=== PATIENT | female | born 1950 | race Caucasian/White ===

== ENCOUNTER → 2017-01-19 | Outpatient (CLI) | payer MEDICARE ==
--- NOTE | 2017-01-20 11:08 | MM ---
Reason for exam: screening (asymptomatic). Last mammogram was performed 2 years and 4 months ago. History: Patient is postmenopausal. Family history of breast cancer in sister and breast cancer in mother at age 76. 2 benign excisional biopsies of the right breast. Took hormonal contraceptives for 5 years. Took estrogen for 12 years 8 months beginning at age 49. Physical Findings: A clinical breast exam by your physician is recommended on an annual basis and results should be correlated with mammographic findings. MG 3D Screening Mammo W/Cad Bilateral CC and MLO view(s) were taken. Prior study comparison: September 15, 2014, bilateral MG screening mammo w CAD. September 07, 2013, bilateral digital screening mammo w/CAD. The breast tissue is heterogeneously dense. This may lower the sensitivity of mammography. Benign calcifications. Focal asymmetry upper outer left breast. This finding is changed when compared with previous exams. ASSESSMENT: Incomplete: need additional imaging evaluation, BI-RAD 0 RECOMMENDATION: Special view mammogram of the left breast. [facility] will attempt to contact patient to return for supplemental views.
== END | disposition home or self-care (01) ==
LOC: RADMAMWWP 13:17
PROVIDERS: ATTEND Family Medicine
DX: Z12.31 Encounter for screening mammogram for malignant neoplasm of breast (principal); R92.2 Inconclusive mammogram
CPT/HCPCS: 77063; G0202

== ENCOUNTER → 2017-01-21 | Outpatient (CLI) | payer MEDICARE ==
--- NOTE | 2017-01-21 11:49 | MM ---
Reason for exam: additional evaluation requested from abnormal screening. Last mammogram was performed less than 1 month ago. History: Patient is postmenopausal. Family history of breast cancer in sister and breast cancer in mother at age 76. 2 benign excisional biopsies of the right breast. Took hormonal contraceptives for 5 years. Took estrogen for 12 years 8 months beginning at age 49. Physical Findings: Nurse did not find any significant physical abnormalities on exam. MG 3D Work Up W/Cad LT LM and spot compression MLO view(s) were taken of the left breast. Prior study comparison: January 19, 2017, bilateral MG 3d screening mammo w/cad. The breast tissue is heterogeneously dense. This may lower the sensitivity of mammography. There is no discrete abnormality on compression. These results were verbally communicated with the patient and result sheet given to the patient on 01/21/17. ASSESSMENT: Probably benign, BI-RAD 3 RECOMMENDATION: Follow-up diagnostic mammogram of the left breast in 6 months.
== END | disposition home or self-care (01) ==
LOC: RADMAMWWP 10:21
PROVIDERS: ATTEND Family Medicine
DX: R92.8 Other abnormal and inconclusive findings on diagnostic imaging of breast (principal)
CPT/HCPCS: G0206; G0279

== ENCOUNTER → 2017-06-04 | Outpatient (CLI) | payer MEDICARE ==
--- NOTE | 2017-06-04 08:53 | US ---
EXAMINATION TYPE: US abdomen complete DATE OF EXAM: 06/04/2017 COMPARISON: 02/08/2016 CLINICAL HISTORY: R10.13 Epigastric Pain. Pt states epigastric pain, GB removed 10 yrs ago EXAM MEASUREMENTS: Liver Length: 12.6 cm CBD: 0.5 cm Spleen: 9.1 cm Right Kidney: 10.8 x 4.8 x 4.4 cm Left Kidney: 9.4 x 5.4 x 4.6 cm Pancreas: Obscured by bowel gas Liver: wnl Gallbladder: Surgically absent Evidence for sonographic Eason's sign: No CBD: wnl Spleen: wnl Right Kidney: wnl Left Kidney: Small in size, cortical thinning Upper IVC: wnl Abd Aorta: Obscured by overlying bowel gas The liver is homogenous. The intrahepatic portion of the IVC and proximal abdominal aorta are within normal limits. Common bile duct is unremarkable. The visualized portions of the pancreas are homog enous. The spleen is unremarkable. The left kidney is diminutive in size. No hydronephrosis nephroli thiasis or renal mass. IMPRESSION: 1. Cholecystectomy changes. 2. Diminutive left kidney.
== END ==
LOC: RADUSWWP 07:28
PROVIDERS: ATTEND Family Medicine
DX: R10.13 Epigastric pain (principal); Z90.49 Acquired absence of other specified parts of digestive tract
CPT/HCPCS: 76700

== ENCOUNTER → 2017-07-03 | Outpatient (CLI) | payer MEDICARE ==
[2017-07-03 13:44] LABS: Basophils # (A) 0.1 k/uL (0-0.2); Basophils % (A) 0 %; CH 30.3; CHCM 32.3; Eosinophils # (A) 0.4 k/uL (0-0.7); Eosinophils % (A) 3 %; HCT 41.7 % (34.0-46.0); HDW 2.66; HGB 13.6 gm/dL (11.4-16.0); Luc # (Auto) 0.33; Luc % (Auto) 3; Lymphocytes # (A) 2.8 k/uL (1.0-4.8); Lymphocytes % (A) 26 %; MCH 30.6 pg (25.0-35.0); MCHC 32.5 g/dL (31.0-37.0); MCV 94.2 fL (80.0-100.0); Mean Platelet Volume 6.9; Monocytes # (A) 0.5 k/uL (0-1.0); Monocytes % (A) 5 %; Neutrophils # (A) 6.8 k/uL (1.3-7.7); Neutrophils % (A) 63 %; RBC 4.43 m/uL (3.80-5.40); RDW 13.1 % (11.5-15.5); WBC 10.8 k/uL (3.8-10.6); WBC (Perox) 11.49
[2017-07-03 13:57] LABS: Anion Gap 12 mmol/L; Blood Urea Nitrogen 23 mg/dL (7-17); Carbon Dioxide 25 mmol/L (22-30); Chloride 103 mmol/L (98-107); Glucose 111 mg/dL (74-99); Non-African American GFR(MDRD) >60 (>60 ml/min/1.73 sqM); Potassium 4.7 mmol/L (3.5-5.1); Sodium 140 mmol/L (137-145)
== END | disposition home or self-care (01) ==
LOC: LABWHC1 13:05
PROVIDERS: ATTEND Nurse Practitioner Family
DX: D50.9 Iron deficiency anemia, unspecified (principal); N17.9 Acute kidney failure, unspecified
CPT/HCPCS: 36415; 80048; 85025

== ENCOUNTER 2017-07-13 13:55 | Emergency (ER) | payer MEDICARE ==
[2017-07-13] MEDS ORDERED: ASPIRIN 81 MG PO STA (14:22)
[2017-07-13] MEDS ORDERED: NITROGLYCERIN SL TABS 0.4 MG TAB SUBLINGUAL STA (14:23)
--- NOTE | 2017-07-13 14:33 | ED ---
General Adult HPI - General Chief complaint: Chest Pain Stated complaint: sent By PCP Abnormal EKG Time Seen by Provider: 07/13/17 14:10 Source: patient, RN notes reviewed, old records reviewed Mode of arrival: wheelchair Limitations: no limitations - History of Present Illness Initial comments: 67-year-old female presents from outpatient clinic with a one-month history of intermittent nausea and central chest tightness. Chest tightness is mild. Patient does report intermittent right upper extremity pain, that she is sharp in nature. Patient denies significant chest tightness at the time my evaluation. She does have nausea. No vomiting. Denies diaphoresis with these episodes. Patient does admit to worsening dyspnea with exertion over the past 6 -7 weeks. She has been sleeping with 2 pillows instead of 1. No known history of heart failure. Denies lower extremity swelling or calf tenderness. Patient states she had a heart catheterization approximately 5 years ago. This was normal according to the patient. She is a nonsmoker. Patient has had workup with general surgery for this pain and nausea including EGD. - Related Data Home Medications Medication Instructions Recorded Confirmed Atenolol [Tenormin] 25 mg PO DAILY 02/25/14 07/13/17 Gabapentin [Neurontin] 300 mg PO TID 02/25/14 07/13/17 Levothyroxine Sodium [Synthroid] 75 mcg PO QAM 02/25/14 07/13/17 Rosuvastatin Calcium [Crestor] 40 mg PO HS 05/17/15 07/13/17 traMADol HCL [Ultram] 50 mg PO Q8H PRN 05/19/16 07/13/17 ALPRAZolam [Xanax] 0.25 mg PO Q8HR PRN 07/13/17 07/13/17 DULoxetine HCL [Cymbalta] 30 mg PO HS 07/13/17 07/13/17 Multivitamins, Thera [Multivitamin 1 tab PO DAILY 07/13/17 07/13/17 (formulary)] Omeprazole [PriLOSEC] 20 mg PO AC-BRKFST 07/13/17 07/13/17 Ondansetron HCl [Zofran] 8 mg PO Q8H PRN 07/13/17 07/13/17 amLODIPine [Norvasc] 5 mg PO DAILY 07/13/17 07/13/17 valACYclovir HCL [Valtrex] 1,000 mg PO TID PRN 07/13/17 07/13/17 Previous Rx's Medication Instructions Recorded Ondansetron Odt [Zofran Odt] 4 mg PO Q8HR PRN #10 tab 07/13/17 Allergies Allergy/AdvReac Type Severity Reaction Status Date / Time adhesive Allergy Rash/Hives Verified 07/13/17 14:22 latex Allergy Rash/Hives Verified 07/13/17 14:22 pentazocine lactate Allergy Confusion Verified 07/13/17 14:22 [From Talwin] potassium chloride Allergy Rash/Hives Verified 07/13/17 14:22 DURA PREP Allergy Rapid Uncoded 07/13/17 13:59 Heart Rate Review of Systems ROS Statement: Those systems with pertinent positive or pertinent negative responses have been documented in the HPI. ROS Other: All systems not noted in ROS Statement are negative. Past Medical History Past Medical History: Fibromyalgia, GERD/Reflux, Hyperlipidemia, Osteoarthritis (OA), Sleep Apnea/CPAP/BIPAP, Thyroid Disorder Additional Past Medical History / Comment(s): Spinal stenosis with spondylosis and scoliosis, irritable bowel syndrome. History of Any Multi-Drug Resistant Organisms: None Reported Past Surgical History: Back Surgery, Breast Surgery, Section, Cholecystectomy, Hysterectomy, Joint Replacement, Orthopedic Surgery Additional Past Surgical History / Comment(s): RIGHT TOTAL KNEE , 815 lumbar laminectomy decompression fusion l4-5, tummy tuck, Past Anesthesia/Blood Transfusion Reactions: Motion Sickness Additional Past Anesthesia/Blood Transfusion Reaction / Comment(s): Has problems with the hiccups after surgery. Past Psychological History: No Psychological Hx Reported Smoking Status: Never smoker Past Alcohol Use History: Occasional Past Drug Use History: None Reported - Past Family History Mother Family Medical History: Cancer, Hypertension Additional Family Medical History / Comment(s): Breast Cancer. Sister(s) Family Medical History: Cancer Additional Family Medical History / Comment(s): Breast Father Family Medical History: Coronary Artery Disease (CAD) Brother(s) Family Medical History: No Reported History Son(s) Family Medical History: No Reported History General Exam Limitations: no limitations General appearance: alert, in no apparent distress Head exam: Present: atraumatic, normocephalic Eye exam: Present: normal appearance, PERRL ENT exam: Present: normal exam Neck exam: Present: normal inspection. Absent: tenderness, meningismus Respiratory exam: Present: normal lung sounds bilaterally. Absent: respiratory distress, wheezes Cardiovascular Exam: Present: regular rate, normal rhythm GI/Abdominal exam: Present: soft. Absent: distended, tenderness, guarding Extremities exam: Present: normal inspection, normal capillary refill. Absent: pedal edema Neurological exam: Present: alert, oriented X3, CN II-XII intact. Absent: motor sensory deficit Psychiatric exam: Present: normal affect, normal mood Skin exam: Present: warm, dry, intact. Absent: cyanosis, diaphoretic Course Vital Signs 07/13/17 07/13/17 07/13/17 13:57 14:35 15:17 Temperature 98.2 F Pulse Rate 78 70 61 Respiratory 18 17 17 Rate Blood Pressure 191/80 129/73 170/86 O2 Sat by Pulse 97 99 99 Oximetry - Reevaluation(s) Reevaluation #1: 07/13/17 14:38 Ultrasound obtained in May of this year showed no acute findings, gallbladder surgically removed. Reevaluation #2: 07/13/17 15:04 EKG is discussed with Dr. Fox, although machine interprets as ST segment elevation, this is likely early repolarization, no acute STEMI. EKG Findings - EKG Comments: EKG Findings:: EKG shows normal sinus rhythm, there is left ventricular hypertrophy, ventricular rate 67, AK interval 144, QRS duration 84, QTC 412, no ST segment elevation, no reciprocal ST segment depression, no signs of acute ischemia Medical Decision Making - Medical Decision Making 67-year-old female presenting with 5 weeks of nausea and intermittent chest tightness. Patient states she had a heart cath approximately 5 years ago which was normal. She denies diaphoresis the symptoms. Chest pain is not worse with exertion. EKG shows normal sinus rhythm with left ventricular hypertrophy. Outpatient EKG was similar, this was interpreted as ST segment elevation by the EKG machine, both EKGs were shown to cardiology, felt this is likely early repolarization. Chest x-ray shows no pulmonary edema, no focal pneumonia. Laboratory studies reveal a popsicle, stable hemoglobin. Troponin is negative. BNP is negative. Creatinine 1.2, patient does have history of CKD which has been improving. Patient is offered observation, she declines. Case is discussed with her primary care physician and will see the patient back several days. The patient and primary care physician are agreeable with discharge at this time. Diagnosis: Chest pain - Lab Data Result diagrams: 07/13/17 14:30 07/13/17 14:30 Lab Results 07/13/17 07/13/17 07/13/17 Range/Units 14:30 14:30 14:30 WBC 7.8 (3.8-10.6) k/uL RBC 4.40 (3.80-5.40) m/uL Hgb 13.3 (11.4-16.0) gm/dL Hct 41.0 (34.0-46.0) % MCV 93.3 (80.0-100.0) fL MCH 30.3 (25.0-35.0) pg MCHC 32.5 (31.0-37.0) g/dL RDW 12.9 (11.5-15.5) % Plt Count 468 H (150-450) k/uL Neutrophils % 59 % Lymphocytes % 26 % Monocytes % 5 % Eosinophils % 5 % Basophils % 1 % Neutrophils # 4.6 (1.3-7.7) k/uL Lymphocytes # 2.1 (1.0-4.8) k/uL Monocytes # 0.4 (0-1.0) k/uL Eosinophils # 0.4 (0-0.7) k/uL Basophils # 0.1 (0-0.2) k/uL PT (9.0-12.0) sec INR (<1.2) APTT (22.0-30.0) sec Sodium 138 (137-145) mmol/L Potassium 4.7 (3.5-5.1) mmol/L Chloride 99 (98-107) mmol/L Carbon Dioxide 28 (22-30) mmol/L Anion Gap 11 mmol/L BUN 20 H (7-17) mg/dL Creatinine 1.20 H (0.52-1.04) mg/dL Est GFR (MDRD) Af Amer 54 (>60 ml/min/1.73 sqM) Est GFR (MDRD) Non-Af 45 (>60 ml/min/1.73 sqM) Glucose 94 (74-99) mg/dL Calcium 9.9 (8.4-10.2) mg/dL Magnesium 1.7 (1.6-2.3) mg/dL Total Bilirubin 0.5 (0.2-1.3) mg/dL AST 38 H (14-36) U/L ALT 43 (9-52) U/L Alkaline Phosphatase 92 (38-126) U/L Total Creatine Kinase 58 (30-135) U/L CK-MB (CK-2) 0.5 (0.0-2.4) ng/mL CK-MB (CK-2) Rel Index 0.9 Troponin I <0.012 (0.000-0.034) ng/mL NT-Pro-B Natriuret Pep pg/mL Total Protein 7.2 (6.3-8.2) g/dL Albumin 4.5 (3.5-5.0) g/dL Lipase 37 (23-300) U/L 07/13/17 07/13/17 Range/Units 14:30 14:30 WBC (3.8-10.6) k/uL RBC (3.80-5.40) m/uL Hgb (11.4-16.0) gm/dL Hct (34.0-46.0) % MCV (80.0-100.0) fL MCH (25.0-35.0) pg MCHC (31.0-37.0) g/dL RDW (11.5-15.5) % Plt Count (150-450) k/uL Neutrophils % % Lymphocytes % % Monocytes % % Eosinophils % % Basophils % % Neutrophils # (1.3-7.7) k/uL Lymphocytes # (1.0-4.8) k/uL Monocytes # (0-1.0) k/uL Eosinophils # (0-0.7) k/uL Basophils # (0-0.2) k/uL PT 11.4 (9.0-12.0) sec INR 1.1 (<1.2) APTT 23.3 (22.0-30.0) sec Sodium (137-145) mmol/L Potassium (3.5-5.1) mmol/L Chloride (98-107) mmol/L Carbon Dioxide (22-30) mmol/L Anion Gap mmol/L BUN (7-17) mg/dL Creatinine (0.52-1.04) mg/dL Est GFR (MDRD) Af Amer (>60 ml/min/1.73 sqM) Est GFR (MDRD) Non-Af (>60 ml/min/1.73 sqM) Glucose (74-99) mg/dL Calcium (8.4-10.2) mg/dL Magnesium (1.6-2.3) mg/dL Total Bilirubin (0.2-1.3) mg/dL AST (14-36) U/L ALT (9-52) U/L Alkaline Phosphatase (38-126) U/L Total Creatine Kinase (30-135) U/L CK-MB (CK-2) (0.0-2.4) ng/mL CK-MB (CK-2) Rel Index Troponin I (0.000-0.034) ng/mL NT-Pro-B Natriuret Pep 222 pg/mL Total Protein (6.3-8.2) g/dL Albumin (3.5-5.0) g/dL Lipase (23-300) U/L Disposition Clinical Impression: Chest pain Disposition: HOME SELF-CARE Condition: Good Instructions: Chest Pain (ED) Prescriptions: Ondansetron Odt [Zofran Odt] 4 mg PO Q8HR PRN #10 tab PRN Reason: Vomiting Referrals: Carlos Cary MD [Primary Care Provider] - 1-2 days Time of Disposition: 16:30
[2017-07-13 14:38] VITALS: RESP 17
--- NOTE | 2017-07-13 14:50 | XR ---
EXAMINATION TYPE: XR chest 2V DATE OF EXAM: 07/13/2017 COMPARISON: 12/03/2009 HISTORY: Intermittent chest pain and tightness TECHNIQUE: Frontal and lateral views of the chest are obtained. FINDINGS: There is no focal air space opacity, pleural effusion, or pneumothorax seen. The cardiac silhouette size is upper limits of normal in size. The osseous structures are intact. There is part ial visualization of a S-shaped scoliotic curvature of the thoracolumbar spine. Mild degenerative nimco nges of the thoracic spine are noted. Cholecystectomy clips are noted within the right upper quadrant . IMPRESSION: No acute cardiopulmonary process.
[2017-07-13 14:58] LABS: INR 1.1 (<1.2); Partial Thromboplastin Time 23.3 sec (22.0-30.0); Prothrombin Time 11.4 sec (9.0-12.0)
[2017-07-13 15:06] LABS: Calcium 9.9 mg/dL (8.4-10.2); Magnesium 1.7 mg/dL (1.6-2.3); Potassium 4.7 mmol/L (3.5-5.1); Total Bilirubin 0.5 mg/dL (0.2-1.3); Total Protein 7.2 g/dL (6.3-8.2)
[2017-07-13 15:10] LABS: Creatine Kinase 58 U/L (30-135)
[2017-07-13 15:22] LABS: Creatine Kinase MB 0.5 ng/mL (0.0-2.4); Troponin I <0.012 ng/mL (0.000-0.034)
[2017-07-13 15:24] LABS: Basophils # (A) 0.1 k/uL (0-0.2); Basophils % (A) 1 %; CH 30.3; CHCM 32.7; Eosinophils # (A) 0.4 k/uL (0-0.7); Eosinophils % (A) 5 %; HDW 2.71; HGB 13.3 gm/dL (11.4-16.0); Luc # (Auto) 0.32; Luc % (Auto) 4; Lymphocytes # (A) 2.1 k/uL (1.0-4.8); Lymphocytes % (A) 26 %; MCH 30.3 pg (25.0-35.0); MCHC 32.5 g/dL (31.0-37.0); MCV 93.3 fL (80.0-100.0); Mean Platelet Volume 6.7; Monocytes # (A) 0.4 k/uL (0-1.0); Monocytes % (A) 5 %; Neutrophils # (A) 4.6 k/uL (1.3-7.7); Neutrophils % (A) 59 %; RDW 12.9 % (11.5-15.5); WBC 7.8 k/uL (3.8-10.6); WBC (Perox) 7.65
[2017-07-13 17:06] VITALS: BP 134/76; PULSE 67; TEMP 97.5
== END 2017-07-13 17:06 | disposition home or self-care (01) ==
LOC: EC 13:55
DX: R07.9 Chest pain, unspecified (principal); M79.7 Fibromyalgia; K21.9 Gastro-esophageal reflux disease without esophagitis; E78.5 Hyperlipidemia, unspecified; E07.9 Disorder of thyroid, unspecified; Z82.49 Family history of ischemic heart disease and other diseases of the circulatory system; Z88.8 Allergy status to other drugs, medicaments and biological substances; Z91.040 Latex allergy status; Z91.048 Other nonmedicinal substance allergy status; Z79.899 Other long term (current) drug therapy
CPT/HCPCS: 36415; 71020; 80053; 82550; 82553; 83690; 83735; 83880; 84484; 85025; 85610; 85730; 93005; 99285

== ENCOUNTER → 2017-10-28 | Outpatient (CLI) | payer MEDICARE ==
[2017-10-28 16:08] LABS: HCT 40.8 % (34.0-46.0); HGB 13.1 gm/dL (11.4-16.0); MCH 29.2 pg (25.0-35.0); MCHC 32.2 g/dL (31.0-37.0); MCV 90.8 fL (80.0-100.0); Mean Platelet Volume 6.9; Platelet Count 399 k/uL (150-450); WBC 9.4 k/uL (3.8-10.6)
[2017-10-28 16:27] LABS: Anion Gap 11 mmol/L; Blood Urea Nitrogen 23 mg/dL (7-17); Carbon Dioxide 32 mmol/L (22-30); Chloride 99 mmol/L (98-107); Potassium 4.9 mmol/L (3.5-5.1); Sodium 142 mmol/L (137-145)
== END | disposition home or self-care (01) ==
LOC: LABPAT 15:26
PROVIDERS: ATTEND Internal Medicine Interventional Cardiology
DX: Z01.812 Encounter for preprocedural laboratory examination (principal); R07.9 Chest pain, unspecified
CPT/HCPCS: 36415; 80051; 82565; 84520; 85027

== ENCOUNTER → 2017-11-05 | Day surgery (SDC) | payer MEDICARE ==
[2017-11-02 11:46] VITALS: BMI 34.9
[~2017-11-05] MED LIST: ACETAMINOPHEN TAB 325 MG TAB ONE; ALPRAZolam 0.25 MG TAB PO PRN; ALPRAZolam 0.5 MG TAB PO PRN; ASPIRIN 325 MG TAB PO STA; ASPIRIN 81 MG PO SCH; ATENOLOL 25 MG TAB PO SCH; DULoxetine HCL 30 MG CAPSULE.DR PO SCH; GABAPENTIN 400 MG CAP PO SCH; HEPARIN SODIUM 1,000 UN/ML (10ML VL) IV ONE; HEPARIN SODIUM 1,000 UN/ML (10ML VL) ONE; LEVOTHYROXINE 75 MCG TAB PO SCH; LIDOCAINE 2% INJ 20 MG/ML (20 ML MDV) ONE; LIDOCAINE 2% INJ 20 MG/ML SQ ONE; MAG HYDROX/AL HYDROX/SIMETH 30 ML CUP PO SCH; MULTIVITAMINS, THERA 1 EACH TAB PO SCH; NITROGLYCERIN SL TABS 0.4 MG TAB SUBLINGUAL PRN; NON-FORMULARY DRUG (Omeprazole 20 MG) PO SCH; NON-FORMULARY DRUG (Rosuvastatin Calcium [Crestor] 40 MG) PO SCH; RX INFO: IV CONTRAST WAS GIVEN 1 EACH MISC MISCELLANE PRN; SODIUM CHLORIDE 0.9% 1,000 ML IV SCH; SODIUM CHLORIDE 0.9% 1,000 ML in EMPTY BAG 1 BAG IV ONE; VERAPAMIL 2.5 MG/ML 2 ML AMP ONE; VERAPAMIL SYRINGE (5 MG/10 ML) INTRAARTER ONE; amLODIPine 5 MG TAB PO SCH; fentaNYL (PF) 50 MCG/ML 2 ML AMP IV ONE; fentaNYL (PF) 50 MCG/ML 2 ML AMP ONE; traMADol 50 MG TAB PO PRN; valACYclovir HCL 1,000 MG TABLET PO PRN
[2017-11-05 08:44] VITALS: RESP 16; TEMP 98.2
--- NOTE | 2017-11-05 11:45 | CC ---
CARDIAC CATHETERIZATION REPORT Ms. Melchor is a 67-year-old female with known history of hypertension, hyperlipidemia, who has been complaining of chest discomfort and dyspnea on exertion, underwent a myocardial perfusion imaging that revealed anteroapical anterolateral wall inducible ischemia. In view of that, recommendation made regarding cardiac catheterization. The procedures, risks and complications were discussed with the patient who is in full understanding and agreement. PROCEDURE: Patient was brought to the [facility] in a fasting semi-sedated state after receiving fentanyl and Benadryl and achieving moderate conscious sedated state. Using Xylocaine anesthesia and the Seldinger technique, a 6-Chilean sheath was introduced in the right radial artery. Attempt to advance a wire in the ascending aorta was unsuccessful because of tortuosity. At that time using Xylocaine anesthesia and Seldinger technique, a 6-Chilean sheath was introduced in the right femoral artery. Selective right and left angiography performed using 6-Chilean 4 bend right and left Dona catheter. Multiple views of the coronary artery including davion-axial views were obtained. From that, a 6-Chilean tight pigtail catheter was introduced into the left ventricle and a 30 degree AGGARWAL view of the left ventricle was obtained. Following that, the catheter and sheaths were removed. Hemostasis was obtained with deployment of an Angio-Seal in the right femoral artery and a TR band in the right radial artery. There was no immediate complication. The patient received 1000 units of intravenous heparin as well as intra-arterial verapamil. FINDINGS: 1. LEFT MAIN: This is a short size vessel bifurcating into the left circumflex, left anterior descending artery, left main coronary artery has no evidence of high-grade stenosis. 2. LEFT ANTERIOR DESCENDING ARTERY: This is a large-sized vessel reaching toward the apex which tapers down in the distal third, giving rise to a large diagonal branch. The left anterior descending artery as well as branches have no evidence of obstructive coronary artery disease. 3. LEFT CIRCUMFLEX: This is a nondominant vessel giving rise to a moderately sized diagonal branch proximally that has no evidence of high-grade stenosis. 4. RIGHT CORONARY ARTERY: This is a large dominant vessel, bifurcating distally into PDA and posterolateral segment and branches. The right coronary artery and its branches have no evidence of obstructive coronary artery disease. 5. LEFT VENTRICULOGRAM: Left ventriculogram was performed in 30 degree AGGARWAL view and revealed normal left ventricular size and systolic function. Ejection fraction is 60%. There was no mitral regurgitation. 6. AORTOGRAM: The aortogram was performed in the ALIVIA view and revealed a normal appearance of the ascending aorta. 7. HEMODYNAMICS: There was no gradient across the aortic valve. The left ventricle end-diastolic pressure was 12 to 16 mmHg. CONCLUSION: 1. Normal coronary arteries. 2. No left ventricular size and systolic function. 3. Normal appearance of the ascending aorta. RECOMMENDATION: In view of finding anatomy, I have recommended continue medical therapy with aggressive risk factor modifications being initiated. Those findings and recommendations were discussed with the patient and her family who are in full understanding and agreement. Duration of the procedure 30 minutes. RENETTA / YADIRAN: [id number] /
--- NOTE | 2017-11-05 11:51 | LTR ---
DATE OF SERVICE: November 05, 2017 RE: Eder Melchoron Dear Dr. Cary; I had the pleasure to perform cardiac catheterization on Ms. Melchor at [facility] on November 05, 2017 and a full copy of the procedure note will be forwarded to you. In brief, she was found to have normal coronary arteries with normal left ventricular size and systolic function. Based on those findings, I have recommended to continue medical therapy with aggressive risk factor modifications being initiated. Thank you again for allowing me to participate in this patient's care. Please feel free to call for any questions. Sincerely yours, MD RENETTA Farooq / YADIRAN: [id number] /
[2017-11-05 17:36] VITALS: BP 134/76; PULSE 64
== END | disposition home or self-care (01) ==
LOC: CATHCVL 07:58
PROVIDERS: ATTEND Internal Medicine Interventional Cardiology
DX: I77.1 Stricture of artery (principal); R94.39 Abnormal result of other cardiovascular function study; R07.89 Other chest pain; I10 Essential (primary) hypertension; Z79.82 Long term (current) use of aspirin; Z79.899 Other long term (current) drug therapy; Z88.5 Allergy status to narcotic agent; E78.2 Mixed hyperlipidemia
CPT/HCPCS: 93458; 93567; C1760; C1894 ×2; C1769 ×2; J2001; J3010; J1644; 93005

== ENCOUNTER → 2018-01-04 | Outpatient (CLI) | payer MEDICARE ==
--- NOTE | 2018-01-04 13:23 | BD ---
EXAMINATION TYPE: MG DEXA axial skeleton. DATE OF EXAM: 01/04/2018 COMPARISON: NONE CLINICAL HISTORY: Z78.0 Post menopausal without HRT Height: 61 Weight: 184.2 FRAX RISK QUESTIONS: Alcohol (3 or more units per day): no Family History (Parent hip fracture): no Glucocorticoids (More than 3mos): no (Ex: prednisone, prednisolone, methylprednisolone, dexamethasone, and hydrocortisone). History of Fracture in Adulthood: no Secondary Osteoporosis: 1. Type 1 Diabetes: no 2. Hyperthyroidism: no 3. Menopause before 45: yes 4. Malnutrition: no 5. Chronic liver disease: no Rheumatoid Arthritis: no Current Tobacco Use: no RISK FACTORS HISTORY OF: Surgery to Spine/Hip(right/left)/Wrist (right/left): yes/ lumbar 4,5. lumbar fusion with rods When: 2014 Family History of Osteoporosis: yes Active: yes Diet low in dairy products/other sources of calcium: yes Postmenopausal woman: partial hysterectomy at age 29 Lost more than 2 inches in height since high school: just 2 inches Frequent falls: no MEDICATIONS: cymbalta, tramadol, atenolol, rosuvastatin, duloxetine, magnesium, vitamins, Thyroid Medications: synthroid How Lon years Additional History: EXAM MEASUREMENTS: Bone mineral densitometry was performed using the [employer] System. Bone mineral density about the R hip (g/cm2): 1.029 Bone mineral density about the L hip (g/cm2): 0.984 T Score values are as follows: -----R Neck: -0.1 -----L Neck: -0.4 -----R Total: 0.1 -----L Total: -0.3 Bone mineral density has: decreased -8.7 % since study of: 08.25.2012 IMPRESSION: No evidence for osteoporosis or osteopenia. NOTE: T-SCORE=SD OF THE YOUNG ADULT MEAN.
== END | disposition home or self-care (01) ==
LOC: RADBDWWP 07:52
PROVIDERS: ATTEND Family Medicine
DX: Z78.0 Asymptomatic menopausal state (principal)
CPT/HCPCS: 77080

== ENCOUNTER → 2018-04-07 | Outpatient (CLI) | payer MEDICARE ==
[2018-04-07 12:17] LABS: Basophils # (A) 0.1 k/uL (0-0.2); Basophils % (A) 1 %; Eosinophils # (A) 0.4 k/uL (0-0.7); Eosinophils % (A) 6 %; HCT 38.5 % (34.0-46.0); HGB 12.6 gm/dL (11.4-16.0); Lymphocytes # (A) 1.8 k/uL (1.0-4.8); Lymphocytes % (A) 33 %; MCHC 32.8 g/dL (31.0-37.0); MCV 91.4 fL (80.0-100.0); Mean Platelet Volume 6.2; Monocytes # (A) 0.3 k/uL (0-1.0); Monocytes % (A) 6 %; Neutrophils # (A) 2.9 k/uL (1.3-7.7); Neutrophils % (A) 51 %; Platelet Count 398 k/uL (150-450); RBC 4.21 m/uL (3.80-5.40); RDW 12.9 % (11.5-15.5); WBC 5.6 k/uL (3.8-10.6)
[2018-04-07 14:25] LABS: Calcium 9.7 mg/dL (8.4-10.2); Potassium 5.1 mmol/L (3.5-5.1)
[2018-04-07 14:28] LABS: T4, Free (Free Thyroxine) 0.72 ng/dL (0.78-2.19)
== END | disposition home or self-care (01) ==
LOC: LABWHC1 11:47
PROVIDERS: ATTEND Family Medicine
DX: M79.652 Pain in left thigh (principal); R60.0 Localized edema
CPT/HCPCS: 36415; 80048; 84439; 84443; 85025

== ENCOUNTER → 2018-04-07 | Outpatient (CLI) | payer MEDICARE ==
--- NOTE | 2018-04-07 13:00 | US ---
EXAMINATION TYPE: US venous doppler duplex LE LT DATE OF EXAM: 04/07/2018 12:45 PM COMPARISON: NONE CLINICAL HISTORY: 68-year-old female R22.42 SWELLING OF LT LOWER LIMB. SIDE PERFORMED: Left TECHNIQUE: The lower extremity deep venous system is examined utilizing real time linear array sonog venessa with graded compression, doppler sonography and color-flow sonography. FINDINGS: VESSELS IMAGED: External Iliac Vein (EIV) Common Femoral Vein Deep Femoral Vein Greater Saphenous Vein * Femoral Vein Popliteal Vein Small Saphenous Vein * (* superficial vessels) Left Leg: Negative for DVT IMPRESSION: No evidence for DVT within the left lower extremity imaged from the groin to the knee.
== END | disposition home or self-care (01) ==
LOC: RADUSWWP 11:24
PROVIDERS: ATTEND Family Medicine
DX: R22.42 Localized swelling, mass and lump, left lower limb (principal); M79.662 Pain in left lower leg; Z88.8 Allergy status to other drugs, medicaments and biological substances

== ENCOUNTER 2018-06-24 17:52 | Emergency (ER) | payer MEDICARE ==
--- NOTE | 2018-06-24 18:23 | ED ---
Abdominal Pain HPI - General Source: patient, RN notes reviewed Mode of arrival: ambulatory Limitations: no limitations <Mindy Payne - Last Filed: 06/24/18 23:51> <Allie Jacob - Last Filed: 06/25/18 01:20> - General Chief Complaint: Abdominal Pain Stated Complaint: lt sided abd pain Time Seen by Provider: 06/24/18 18:10 - History of Present Illness Initial Comments: This is a 68-year-old female who presents to the emergency department with chief complaint of left lower quadrant abdominal pain. Patient reports a history of intermittent constipation for the past one month. She states that this she went two days without having a bowel movement and then had multiple bowel movements on Thursday. She states that on Thursday night she developed left lower quadrant abdominal pain that she describes as "nagging." She states the pain is made worse by laying on her left side and is made better by lying flat. She states that this pain has been constant. She also reports intermittent bloating and nausea. Denies vomiting or diarrhea. States that she continues to have normal bowel movements. Denies any fevers or chills. Denies chest pain or shortness of breath, dysuria or hematuria. She states the previous colonoscopies and barium enemas have been normal. (Mindy Payne) - Related Data Home Medications Medication Instructions Recorded Confirmed Atenolol [Tenormin] 25 mg PO DAILY 02/25/14 06/24/18 Rosuvastatin Calcium [Crestor] 40 mg PO HS 05/17/15 06/24/18 traMADol HCL [Ultram] 50 mg PO BID PRN 05/19/16 06/24/18 Multivitamins, Thera [Multivitamin 1 tab PO DAILY 07/13/17 06/24/18 (formulary)] Omeprazole [PriLOSEC] 20 mg PO DAILY 07/13/17 06/24/18 Aspirin 81 mg PO HS 11/02/17 06/24/18 Cholecalciferol [Vitamin D3] 1,000 unit PO DAILY 06/24/18 06/24/18 Lysine [l-Lysine] 500 mg PO DAILY 06/24/18 06/24/18 Magnesium 200 mg PO DAILY 06/24/18 06/24/18 Melatonin 5 mg PO HS PRN 06/24/18 06/24/18 Allergies Allergy/AdvReac Type Severity Reaction Status Date / Time adhesive Allergy Rash/Hives Verified 06/24/18 18:29 latex Allergy Rash/Hives Verified 06/24/18 18:29 pentazocine lactate Allergy Confusion Verified 06/24/18 18:29 [From [place]] potassium chloride Allergy Rash/Hives Verified 06/24/18 18:29 DURA PREP Allergy Rash/Hives Uncoded 06/24/18 17:55 Review of Systems ROS Other: All systems not noted in ROS Statement are negative. <Mindy Payne - Last Filed: 06/24/18 23:51> ROS Other: All systems not noted in ROS Statement are negative. <Allie Jacob - Last Filed: 06/25/18 01:20> ROS Statement: Those systems with pertinent positive or pertinent negative responses have been documented in the HPI. Past Medical History Past Medical History: Chest Pain / Angina, Fibromyalgia, GERD/Reflux, Hyperlipidemia, Hypertension, Osteoarthritis (OA), Thyroid Disorder Additional Past Medical History / Comment(s): Spinal stenosis with spondylosis and scoliosis, hx. of irritable bowel syndrome. History of Any Multi-Drug Resistant Organisms: None Reported Past Surgical History: Back Surgery, Breast Surgery, Section, Cholecystectomy, Hysterectomy, Joint Replacement, Orthopedic Surgery Additional Past Surgical History / Comment(s): RIGHT TOTAL KNEE , 05-24-15 lumbar laminectomy decompression fusion l4-5, tummy tuck, Past Anesthesia/Blood Transfusion Reactions: Motion Sickness Additional Past Anesthesia/Blood Transfusion Reaction / Comment(s): Has problems with the hiccups after surgery. Severe allergy to Dura Prep. Past Psychological History: No Psychological Hx Reported Smoking Status: Never smoker Past Alcohol Use History: Occasional Past Drug Use History: None Reported - Past Family History Mother Family Medical History: Cancer, Hypertension Additional Family Medical History / Comment(s): Breast Cancer. Sister(s) Family Medical History: Cancer Additional Family Medical History / Comment(s): Breast Father Family Medical History: Coronary Artery Disease (CAD) Brother(s) Family Medical History: No Reported History Son(s) Family Medical History: No Reported History <Mindy Payne - Last Filed: 06/24/18 23:51> General Exam Limitations: no limitations <Macon,Mindy M - Last Filed: 06/24/18 23:51> <Allie Jacob P - Last Filed: 06/25/18 01:20> - General Exam Comments Initial Comments: General: Awake and alert, well-developed; in no apparent distress. Does not appear acutely ill. is at bedside. HEENT: Head atraumatic, normocephalic. Pupils are equal, round and reactive to light. Extraocular movements intact. Oropharynx moist without erythema or exudate. Neck: Supple. Normal ROM. Cardiovascular: Regular rate and rhythm. No murmurs, rubs or gallops. Chest symmetrical. Respiratory: Lungs clear to auscultation bilaterally. No wheezes, rales or rhonchi. Normal respiratory effort with no use of accessory muscles. Abdomen: Soft, non-distended. Tenderness with voluntary guarding left lower quadrant. No rigidity or rebound. Normal bowel sounds in all 4 quadrants. Left CVA tenderness. Musculoskeletal: Normal ROM, no tenderness bilateral upper and lower extremities. Skin: [place], warm and dry without rashes or lesions. Neurological: Alert and oriented x3. CN II-XII grossly intact. Speech is fluent and answers are appropriate. No focal neuro deficits. Psychiatric: Normal mood and affect. No overt signs of depression or anxiety noted. (Mindy Payne) Vital Signs 06/24/18 06/24/18 17:54 21:45 Temperature 98.2 F 98.4 F Pulse Rate 76 73 Respiratory 20 18 Rate Blood Pressure 141/83 145/80 O2 Sat by Pulse 100 100 Oximetry Medical Decision Making - Lab Data Result diagrams: 06/24/18 18:50 06/24/18 18:50 - Radiology Data Radiology results: report reviewed <Mindy Payne - Last Filed: 06/24/18 23:51> - Lab Data Result diagrams: 06/24/18 18:50 06/24/18 18:50 <Allie Jacob P - Last Filed: 06/25/18 01:20> - Medical Decision Making This is a 68-year-old female who presents to the emergency department with chief complaint of left lower quadrant abdominal pain. Patient reports pain has been present since Thursday. There is tenderness with voluntary guarding to the left lower quadrant. She does not appear acutely ill. CBC, CMP and UA are unremarkable. Computed tomography scan of the abdomen and pelvis reveals no acute abnormalities. Patient is in no acute distress and vital signs have been stable. Case is discussed with attending physician, Dr. Jacob who also evaluated the patient. Patient will be discharged home at this time. She is in agreement and voices understanding. All questions answered. (Mindy Payne) I personally saw and examined the patient. I reviewed and agree with the mid- level provider findings including all diagnostic interpretations and treatment plans as written unless otherwise stated. I was present for steiner portions of any procedures performed. (Allie Jacob) - Lab Data Lab Results 06/24/18 06/24/18 06/24/18 Range/Units 18:50 18:50 18:50 WBC 7.1 (3.8-10.6) k/uL RBC 4.04 (3.80-5.40) m/uL Hgb 12.1 (11.4-16.0) gm/dL Hct 36.5 (34.0-46.0) % MCV 90.5 (80.0-100.0) fL MCH 29.9 (25.0-35.0) pg MCHC 33.0 (31.0-37.0) g/dL RDW 13.3 (11.5-15.5) % Plt Count 365 (150-450) k/uL Neutrophils % 48 % Lymphocytes % 38 % Monocytes % 6 % Eosinophils % 5 % Basophils % 1 % Neutrophils # 3.4 (1.3-7.7) k/uL Lymphocytes # 2.7 (1.0-4.8) k/uL Monocytes # 0.4 (0-1.0) k/uL Eosinophils # 0.4 (0-0.7) k/uL Basophils # 0.1 (0-0.2) k/uL Sodium 140 (137-145) mmol/L Potassium 4.3 (3.5-5.1) mmol/L Chloride 103 (98-107) mmol/L Carbon Dioxide 29 (22-30) mmol/L Anion Gap 8 mmol/L BUN 23 H (7-17) mg/dL Creatinine 0.89 (0.52-1.04) mg/dL Est GFR (CKD-EPI)AfAm 77 (>60 ml/min/1.73 sqM) Est GFR (CKD-EPI)NonAf 66 (>60 ml/min/1.73 sqM) Glucose 101 H (74-99) mg/dL Calcium 9.3 (8.4-10.2) mg/dL Total Bilirubin 0.3 (0.2-1.3) mg/dL AST 24 (14-36) U/L ALT 24 (9-52) U/L Alkaline Phosphatase 72 (38-126) U/L Total Protein 6.3 (6.3-8.2) g/dL Albumin 3.9 (3.5-5.0) g/dL Amylase 43 (30-110) U/L Lipase 31 (23-300) U/L Urine Color Yellow Urine Appearance Cloudy H (Clear) Urine pH 5.5 (5.0-8.0) Ur Specific [place] 1.023 (1.001-1.035) Urine Protein Negative (Negative) Urine Glucose (UA) Negative (Negative) Urine Ketones Negative (Negative) Urine Blood Negative (Negative) Urine Nitrite Negative (Negative) Urine Bilirubin Negative (Negative) Urine Urobilinogen <2.0 (<2.0) mg/dL Ur Leukocyte Esterase Negative (Negative) Urine RBC 1 (0-5) /hpf Urine WBC 2 (0-5) /hpf Ur Squamous Epith Cells 7 H (0-4) /hpf Urine Bacteria Rare H (None) /hpf Urine Mucus Occasional H (None) /hpf - Radiology Data CT abdomen and pelvis with contrast impression: Compared to last exam there is improved aeration of the right lung base. No sign of acute abdomen and pelvis. I do not see a cause for left-sided pain. (Mindy Payne) Disposition Is patient prescribed a controlled substance at d/c from ED?: No Time of Disposition: 21:33 <Mindy Payne - Last Filed: 06/24/18 23:51> <Allie Jacob - Last Filed: 06/25/18 01:20> Clinical Impression: Abdominal pain Disposition: HOME SELF-CARE Condition: Good Instructions: Abdominal Pain (ED) Additional Instructions: Please follow up with primary care provider within 1-2 days. Return to emergency department if symptoms should worsen or any concerns arise. Referrals: Carlos Cary MD [Primary Care Provider] - 1-2 days
[2018-06-24 19:33] LABS: Basophils # (A) 0.1 k/uL (0-0.2); Basophils % (A) 1 %; Eosinophils # (A) 0.4 k/uL (0-0.7); Eosinophils % (A) 5 %; HCT 36.5 % (34.0-46.0); HGB 12.1 gm/dL (11.4-16.0); Lymphocytes # (A) 2.7 k/uL (1.0-4.8); Lymphocytes % (A) 38 %; MCH 29.9 pg (25.0-35.0); MCV 90.5 fL (80.0-100.0); Mean Platelet Volume 6.6; Monocytes # (A) 0.4 k/uL (0-1.0); Monocytes % (A) 6 %; Neutrophils # (A) 3.4 k/uL (1.3-7.7); Neutrophils % (A) 48 %; Platelet Count 365 k/uL (150-450); RBC 4.04 m/uL (3.80-5.40); RDW 13.3 % (11.5-15.5); WBC 7.1 k/uL (3.8-10.6)
[2018-06-24 19:37] LABS: Appearance,Urine Cloudy (Clear); Bacteria,Urine Rare /hpf; Bilirubin,Urine Negative (Negative); Blood,Urine Negative (Negative); Color,Urine Yellow; Glucose,Urine (UA) Negative (Negative); Ketones,Urine Negative (Negative); Leukocyte Esterase,Urine Negative (Negative); Mucus,Urine Occasional /hpf; Nitrite,Urine Negative (Negative); PH, Urine 5.5 (5.0-8.0); Protein,Urine Negative (Negative); RBC,Urine 1 /hpf (0-5); Specific Gravity,Urine 1.023 (1.001-1.035); Squamous Epithelial Cell,Urine 7 /hpf (0-4); Urobilinogen,Urine <2.0 mg/dL (<2.0); WBC,Urine 2 /hpf (0-5)
[2018-06-24 19:49] LABS: Albumin 3.9 g/dL (3.5-5.0); Calcium 9.3 mg/dL (8.4-10.2); Potassium 4.3 mmol/L (3.5-5.1); Total Bilirubin 0.3 mg/dL (0.2-1.3); Total Protein 6.3 g/dL (6.3-8.2)
[2018-06-24] MEDS ORDERED: MORPHINE SULFATE 2 MG/ML SYRINGE IVP STA (19:51)
--- NOTE | 2018-06-24 20:53 | CT ---
EXAMINATION TYPE: CT abdomen pelvis w con DATE OF EXAM: 06/24/2018 COMPARISON: 07/23/2017 HISTORY: LEFT SIDE ABDOMINAL PAIN CT DLP: 1277.5 mGycm Automated exposure control for dose reduction was used. TECHNIQUE: Helical acquisition of images was performed from the lung bases through the pelvis. CONTRAST: Performed without Oral Contrast and with IV Contrast, patient injected with 100 mL of Isovue 300. FINDINGS: There is small linear density at the right posterior lung base. There is no pleural effusion. There i s no pericardial effusion. Heart size is normal. There is hiatal hernia. The the stomach is otherwise normal. The liver spleen pancreas appear normal. Bile ducts are not dilated. There are clips from cholecystectomy. There is no adrenal mass. Kidneys show satisfactory contrast opacification. There is no hydronephrosi s. Ureters are not dilated. There is no retroperitoneal adenopathy. There is no mesenteric adenopathy or edema. Bladder distends smoothly. There is no free fluid in the pelvis. There is no sign of pneumoperitoneum . There is no inguinal adenopathy or hernia. Umbilicus appears normal. There is posterior fusion surg gertrudis in the lower lumbar spine. The abdominal soft tissues are unremarkable. Appendix is not seen. The re is no sign of appendicitis. There is no intestinal wall thickening. There are no dilated loops. IMPRESSION: COMPARED TO LAST EXAM THERE IS IMPROVED AERATION OF THE RIGHT LUNG BASE. NO SIGN OF ACUTE ABDOMEN AND PELVIS. I DO NOT SEE A CAUSE FOR LEFT-SIDED PAIN.
[2018-06-24 21:45] VITALS: BP 145/80; PULSE 73; RESP 18; TEMP 98.4
== END 2018-06-24 21:45 | disposition home or self-care (01) ==
LOC: EC 17:52
DX: R10.32 Left lower quadrant pain (principal); R11.0 Nausea; R14.0 Abdominal distension (gaseous); E78.5 Hyperlipidemia, unspecified; K21.9 Gastro-esophageal reflux disease without esophagitis; M79.7 Fibromyalgia; I10 Essential (primary) hypertension; K58.9 Irritable bowel syndrome, unspecified; Z79.82 Long term (current) use of aspirin; Z79.899 Other long term (current) drug therapy; Z91.040 Latex allergy status; Z91.048 Other nonmedicinal substance allergy status; Z88.8 Allergy status to other drugs, medicaments and biological substances; Z90.49 Acquired absence of other specified parts of digestive tract; Z90.710 Acquired absence of both cervix and uterus
CPT/HCPCS: 36415; 80053; 82150; 83690; 85025; 81001; 74177; 99284; 96374; J2270; Q9967

== ENCOUNTER 2018-06-28 16:51 | Emergency (ER) | payer MEDICARE ==
[2018-06-28 17:22] VITALS: RESP 18
--- NOTE | 2018-06-28 18:29 | ED ---
Abdominal Pain HPI - General Chief Complaint: Abdominal Pain Stated Complaint: Stomach pain Time Seen by Provider: 06/28/18 18:02 Source: patient, RN notes reviewed Mode of arrival: ambulatory Limitations: no limitations - History of Present Illness Initial Comments: This is a 68-year-old female who presents to the emergency department with chief complaint of abdominal pain. Patient was seen by myself and Dr. Jacob on June 24 with the same complaint. Patient has been having left lower quadrant abdominal pain since last Thursday evening. She describes the pain as aching and nagging. She states her abdomen feels firm and distended. She has also been constipated. Her last bowel movement was last Thursday, however last evening she ate [employer] to try to get her bowels moving and she did go "some." She states that her stool was been soft. Denies any diarrhea. Patient did have a computed tomography scan of the abdomen and pelvis when evaluated here on the . This revealed no acute abnormalities. Patient followed up on Thursday with her family physician. She was prescribed Cipro, Flagyl and Bentyl. She has also been taking Metamucil since Thursday. She states that she does have an upcoming appointment on with Dr. Brock. She denies any worsening of pain but states that she has had no relief. The symptoms are the same, however she is now expanding to nausea without vomiting. She denies any fevers or chills, chest pain or shortness of breath. - Related Data Home Medications Medication Instructions Recorded Confirmed Atenolol [Tenormin] 25 mg PO DAILY 02/25/14 06/28/18 Rosuvastatin Calcium [Crestor] 40 mg PO HS 05/17/15 06/28/18 traMADol HCL [Ultram] 50 mg PO Q8H PRN 05/19/16 06/28/18 Multivitamins, Thera [Multivitamin 1 tab PO DAILY 07/13/17 06/28/18 (formulary)] Omeprazole [PriLOSEC] 20 mg PO DAILY 07/13/17 06/28/18 Aspirin 81 mg PO HS 11/02/17 06/28/18 Lysine [l-Lysine] 500 mg PO DAILY 06/24/18 06/28/18 Magnesium 200 mg PO DAILY 06/24/18 06/28/18 Melatonin 5 mg PO HS PRN 06/24/18 06/28/18 Ciprofloxacin HCl [Cipro] 500 mg PO DAILY 06/28/18 06/28/18 Dicyclomine HCl 20 - 80 mg PO DAILY 06/28/18 06/28/18 Docusate [Colace] 100 mg PO DAILY 06/28/18 06/28/18 Turmeric Root Extract [Turmeric] 500 mg PO DAILY 06/28/18 06/28/18 metroNIDAZOLE [Flagyl] 500 mg PO TID 06/28/18 06/28/18 Allergies Allergy/AdvReac Type Severity Reaction Status Date / Time adhesive Allergy Rash/Hives Verified 06/28/18 17:52 latex Allergy Rash/Hives Verified 06/28/18 17:52 pentazocine lactate Allergy Confusion Verified 06/28/18 17:52 [From [place]] potassium chloride Allergy Rash/Hives Verified 06/28/18 17:52 DURA PREP Allergy Rash/Hives Uncoded 06/28/18 17:22 Review of Systems ROS Statement: Those systems with pertinent positive or pertinent negative responses have been documented in the HPI. ROS Other: All systems not noted in ROS Statement are negative. Past Medical History Past Medical History: Chest Pain / Angina, Fibromyalgia, GERD/Reflux, Hyperlipidemia, Hypertension, Osteoarthritis (OA), Thyroid Disorder Additional Past Medical History / Comment(s): Spinal stenosis with spondylosis and scoliosis, hx. of irritable bowel syndrome. History of Any Multi-Drug Resistant Organisms: None Reported Past Surgical History: Back Surgery, Breast Surgery, Section, Cholecystectomy, Hysterectomy, Joint Replacement, Orthopedic Surgery Additional Past Surgical History / Comment(s): RIGHT TOTAL KNEE , 15 lumbar laminectomy decompression fusion l4-5, tummy tuck, Past Anesthesia/Blood Transfusion Reactions: Motion Sickness Additional Past Anesthesia/Blood Transfusion Reaction / Comment(s): Has problems with the hiccups after surgery. Severe allergy to Dura Prep. Past Psychological History: No Psychological Hx Reported Smoking Status: Never smoker Past Alcohol Use History: Occasional Past Drug Use History: None Reported - Past Family History Mother Family Medical History: Cancer, Hypertension Additional Family Medical History / Comment(s): Breast Cancer. Sister(s) Family Medical History: Cancer Additional Family Medical History / Comment(s): Breast Father Family Medical History: Coronary Artery Disease (CAD) Brother(s) Family Medical History: No Reported History Son(s) Family Medical History: No Reported History General Exam - General Exam Comments Initial Comments: General: Awake and alert, well-developed; in no apparent distress. Pleasant elderly female lying comfortably on ED stretcher with at bedside. Does not appear acutely ill. HEENT: Head atraumatic, normocephalic. Pupils are equal, round and reactive to light. Extraocular movements intact. Oropharynx moist without erythema or exudate. Neck: Supple. Normal ROM. Cardiovascular: Regular rate and rhythm. No murmurs, rubs or gallops. Chest symmetrical. Respiratory: Lungs clear to auscultation bilaterally. No wheezes, rales or rhonchi. Normal respiratory effort with no use of accessory muscles. Abdomen: Soft, mild distention. Tenderness on palpation of left lower quadrant. No rigidity, rebound or guarding. Normal bowel sounds in all 4 quadrants. Musculoskeletal: Normal ROM, no tenderness bilateral upper and lower extremities. Ambulating normally. Skin: [place], warm and dry without rashes or lesions. Neurological: Alert and oriented x3. CN II-XII grossly intact. Speech is fluent and answers are appropriate. No focal neuro deficits. Psychiatric: Normal mood and affect. No overt signs of depression or anxiety noted. Limitations: no limitations Course Vital Signs 06/28/18 06/28/18 17:20 19:22 Temperature 98.3 F Pulse Rate 65 62 Respiratory 18 18 Rate Blood Pressure 133/82 162/74 O2 Sat by Pulse 97 94 L Oximetry Medical Decision Making - Medical Decision Making This is a 68-year-old female who presents to the emergency department chief complaint of left quadrant abdominal pain. Patient was seen on June 24 for the same problem. At that time, a computed tomography scan of the abdomen and pelvis was obtained which revealed no acute abnormalities. Patient states that the pain has not gone away. She denies any worsening of the pain. There is mild tenderness on palpation of the left lower quadrant. Patient was evaluated by her primary care provider on Thursday and has been taking Cipro, Flagyl and Bentyl. She returned to the emergency department today for reevaluation as her pain has not gone away. She does have a follow-up appointment scheduled with Dr. Brock this . Patient also reports constipation. Laboratory studies and x-ray KUB were obtained. CBC, CMP and UA demonstrated no significant abnormalities. X-ray KUB reveals no acute abnormalities. Discussed admission with patient who declines and states that she would rather be discharged home and follow-up with Dr. Brock outpatient. Recommended continuing her medications prescribed by her primary care provider. Patient's vital signs have been stable and she is in no acute distress. She will be discharged home at this time. She is in agreement with plan and voices understanding. All questions were answered. - Lab Data Result diagrams: 06/28/18 18:40 06/28/18 18:40 Lab Results 06/28/18 06/28/18 06/28/18 Range/Units 18:40 18:40 18:40 WBC 5.7 (3.8-10.6) k/uL RBC 4.40 (3.80-5.40) m/uL Hgb 12.8 (11.4-16.0) gm/dL Hct 39.6 (34.0-46.0) % MCV 90.1 (80.0-100.0) fL MCH 29.1 (25.0-35.0) pg MCHC 32.3 (31.0-37.0) g/dL RDW 13.1 (11.5-15.5) % Plt Count 394 (150-450) k/uL Neutrophils % 49 % Lymphocytes % 35 % Monocytes % 6 % Eosinophils % 7 % Basophils % 1 % Neutrophils # 2.8 (1.3-7.7) k/uL Lymphocytes # 2.0 (1.0-4.8) k/uL Monocytes # 0.3 (0-1.0) k/uL Eosinophils # 0.4 (0-0.7) k/uL Basophils # 0.0 (0-0.2) k/uL Sodium 140 (137-145) mmol/L Potassium 4.1 (3.5-5.1) mmol/L Chloride 105 (98-107) mmol/L Carbon Dioxide 26 (22-30) mmol/L Anion Gap 9 mmol/L BUN 19 H (7-17) mg/dL Creatinine 0.86 (0.52-1.04) mg/dL Est GFR (CKD-EPI)AfAm 80 (>60 ml/min/1.73 sqM) Est GFR (CKD-EPI)NonAf 70 (>60 ml/min/1.73 sqM) Glucose 115 H (74-99) mg/dL Calcium 9.7 (8.4-10.2) mg/dL Total Bilirubin 0.3 (0.2-1.3) mg/dL AST 42 H (14-36) U/L ALT 35 (9-52) U/L Alkaline Phosphatase 71 (38-126) U/L Total Protein 6.6 (6.3-8.2) g/dL Albumin 4.0 (3.5-5.0) g/dL Amylase 36 (30-110) U/L Lipase 26 (23-300) U/L Urine Color Yellow Urine Appearance Clear (Clear) Urine pH 6.0 (5.0-8.0) Ur Specific [place] 1.025 (1.001-1.035) Urine Protein Trace H (Negative) Urine Glucose (UA) Negative (Negative) Urine Ketones Trace H (Negative) Urine Blood Negative (Negative) Urine Nitrite Negative (Negative) Urine Bilirubin Negative (Negative) Urine Urobilinogen <2.0 (<2.0) mg/dL Ur Leukocyte Esterase Trace H (Negative) Urine RBC <1 (0-5) /hpf Urine WBC 4 (0-5) /hpf Ur Squamous Epith Cells 2 (0-4) /hpf Urine Bacteria Rare H (None) /hpf Urine Mucus Occasional H (None) /hpf - Radiology Data Radiology results: report reviewed, image reviewed X-ray KUB findings: Scattered gas is seen in nondistended stomach and small bowel loops. Gas and fecal material seen in nondistended colon. Cholecystectomy clips are redemonstrated. There is actual convex scoliosis centered in the upper to mid lumbar spine. Postsurgical changes in the lower lumbar spinous redemonstrated. No pneumoperitoneum or suspicious calcifications seen. Surgical clips of pelvis are present. Lung bases are clear. Impression: Overall nonobstructive bowel gas pattern. No significant change from recent CT. Disposition Clinical Impression: Abdominal pain Disposition: HOME SELF-CARE Condition: Good Instructions: Abdominal Pain (ED) Additional Instructions: As discussed, please follow-up with Dr. Brock as scheduled. Please follow up with primary care provider within 1-2 days. Return to emergency department if symptoms should worsen or any concerns arise. Is patient prescribed a controlled substance at d/c from ED?: No Referrals: Carlos Cary MD [Primary Care Provider] - 1-2 days Time of Disposition: 20:20
[2018-06-28 18:56] LABS: Basophils % (A) 1 %; Eosinophils # (A) 0.4 k/uL (0-0.7); Eosinophils % (A) 7 %; HCT 39.6 % (34.0-46.0); HGB 12.8 gm/dL (11.4-16.0); Lymphocytes % (A) 35 %; MCH 29.1 pg (25.0-35.0); MCHC 32.3 g/dL (31.0-37.0); MCV 90.1 fL (80.0-100.0); Mean Platelet Volume 6.6; Monocytes # (A) 0.3 k/uL (0-1.0); Monocytes % (A) 6 %; Neutrophils # (A) 2.8 k/uL (1.3-7.7); Neutrophils % (A) 49 %; Platelet Count 394 k/uL (150-450); RDW 13.1 % (11.5-15.5); WBC 5.7 k/uL (3.8-10.6)
[2018-06-28 19:01] LABS: Calcium 9.7 mg/dL (8.4-10.2); Potassium 4.1 mmol/L (3.5-5.1); Total Bilirubin 0.3 mg/dL (0.2-1.3); Total Protein 6.6 g/dL (6.3-8.2)
[2018-06-28 19:02] LABS: Appearance,Urine Clear (Clear); Bacteria,Urine Rare /hpf; Bilirubin,Urine Negative (Negative); Blood,Urine Negative (Negative); Color,Urine Yellow; Glucose,Urine (UA) Negative (Negative); Ketones,Urine Trace (Negative); Leukocyte Esterase,Urine Trace (Negative); Mucus,Urine Occasional /hpf; Nitrite,Urine Negative (Negative); Protein,Urine Trace (Negative); RBC,Urine <1 /hpf (0-5); Specific Gravity,Urine 1.025 (1.001-1.035); Squamous Epithelial Cell,Urine 2 /hpf (0-4); Urobilinogen,Urine <2.0 mg/dL (<2.0); WBC,Urine 4 /hpf (0-5)
--- NOTE | 2018-06-28 19:25 | XR ---
EXAMINATION TYPE: XR KUB DATE OF EXAM: 06/28/2018 7:13 PM CLINICAL HISTORY: Left lower quadrant pain for one week. TECHNIQUE: Two Upright KUB images of the abdomen are obtained. COMPARISON: CT abdomen and pelvis from 4 days ago. FINDINGS: Scattered gas is seen in non-distended stomach and small bowel loops. Gas and fecal materia l is seen in non-distended colon. Cholecystectomy clips are redemonstrated. There is dextroconvex sco liosis centered in the upper to mid lumbar spine. Postsurgical change in the lower lumbar spine is re demonstrated. No pneumoperitoneum or suspicious calcification is seen. Surgical clips of pelvis are p resent. Lung bases are clear. IMPRESSION: Overall nonobstructive bowel gas pattern. No significant change from recent CT.
[2018-06-28] MEDS ORDERED: ONDANSETRON 4 MG/2 ML VIAL IVP STA (19:30)
[2018-06-28] MEDS ORDERED: MORPHINE SULFATE 4 MG/ML SYRINGE IVP STA (19:30)
[2018-06-28 20:32] VITALS: BP 161/70; PULSE 84; TEMP 98.5
== END 2018-06-28 20:30 | disposition home or self-care (01) ==
LOC: EC 16:51
DX: R10.32 Left lower quadrant pain (principal); R11.0 Nausea; M79.7 Fibromyalgia; K21.9 Gastro-esophageal reflux disease without esophagitis; E78.5 Hyperlipidemia, unspecified; I10 Essential (primary) hypertension; K58.9 Irritable bowel syndrome, unspecified; Z79.82 Long term (current) use of aspirin; Z79.899 Other long term (current) drug therapy; Z91.040 Latex allergy status; Z91.048 Other nonmedicinal substance allergy status; Z88.8 Allergy status to other drugs, medicaments and biological substances
CPT/HCPCS: 36415; 80053; 82150; 83690; 85025; 81001; 74018; 99284; 96374; 96375; J2270; J2405

== ENCOUNTER 2018-07-07 07:49 | Day surgery (SDC) | payer MEDICARE ==
[2018-07-06 08:57] VITALS: BMI 32.9
[~2018-07-07 07:49] MED LIST changes: -ACETAMINOPHEN TAB 325 MG TAB ONE; -ALPRAZolam 0.25 MG TAB PO PRN; -ALPRAZolam 0.5 MG TAB PO PRN; -ASPIRIN 325 MG TAB PO STA; -ASPIRIN 81 MG PO SCH; -ATENOLOL 25 MG TAB PO SCH; -DULoxetine HCL 30 MG CAPSULE.DR PO SCH; -GABAPENTIN 400 MG CAP PO SCH; -HEPARIN SODIUM 1,000 UN/ML (10ML VL) IV ONE; -HEPARIN SODIUM 1,000 UN/ML (10ML VL) ONE; +LACTATED RINGERS 1,000 ML IV SCH; -LEVOTHYROXINE 75 MCG TAB PO SCH; -LIDOCAINE 2% INJ 20 MG/ML (20 ML MDV) ONE; -LIDOCAINE 2% INJ 20 MG/ML SQ ONE; -MAG HYDROX/AL HYDROX/SIMETH 30 ML CUP PO SCH; -MULTIVITAMINS, THERA 1 EACH TAB PO SCH; -NITROGLYCERIN SL TABS 0.4 MG TAB SUBLINGUAL PRN; -NON-FORMULARY DRUG (Omeprazole 20 MG) PO SCH; -NON-FORMULARY DRUG (Rosuvastatin Calcium [Crestor] 40 MG) PO SCH; -RX INFO: IV CONTRAST WAS GIVEN 1 EACH MISC MISCELLANE PRN; -SODIUM CHLORIDE 0.9% 1,000 ML IV SCH; -SODIUM CHLORIDE 0.9% 1,000 ML in EMPTY BAG 1 BAG IV ONE; -VERAPAMIL 2.5 MG/ML 2 ML AMP ONE; -VERAPAMIL SYRINGE (5 MG/10 ML) INTRAARTER ONE; -amLODIPine 5 MG TAB PO SCH; -fentaNYL (PF) 50 MCG/ML 2 ML AMP IV ONE; -fentaNYL (PF) 50 MCG/ML 2 ML AMP ONE; -traMADol 50 MG TAB PO PRN; -valACYclovir HCL 1,000 MG TABLET PO PRN
[2018-07-07 08:13] VITALS: TEMP 97.9
[2018-07-07] MEDS ORDERED: LIDOCAINE 1% 20 ML VIAL (10MG/ML) FOR IV START INTRADERMA ONE (08:24)
[2018-07-07] MEDS ORDERED: GLUCAGON 1 MG/ML VIAL ONE (08:55)
[2018-07-07] MEDS ORDERED: PROPOFOL 10 MG/ML 20 ML VIAL IV ONE (08:55)
[2018-07-07] MEDS ORDERED: LIDOCAINE 1% INJ 10MG/ML (20 ML MDV) ONE (08:55)
--- NOTE | 2018-07-07 09:01 | P.GSHP ---
History of Present Illness H&P Date: 07/07/18 Chief Complaint: GERD, diverticulitis, left-sided abdominal pain This a 68-year-old female who presents today for EGD and colonoscopy. Patient' s had complaints of left-sided abdominal pain. She has history of GERD and diverticulitis. Past Medical History Past Medical History: Fibromyalgia, GERD/Reflux, Hyperlipidemia, Hypertension Additional Past Medical History / Comment(s): Spinal stenosis with spondylosis and scoliosis, IBS, hx ulcer, had "kidney distress" from medications History of Any Multi-Drug Resistant Organisms: None Reported Past Surgical History: Appendectomy, Back Surgery, Breast Surgery, Section, Cholecystectomy, Hysterectomy, Joint Replacement, Orthopedic Surgery Additional Past Surgical History / Comment(s): RIGHT knee replacement, lumbar laminectomy, decompression fusion with ortiz, abdominoplasty, rt breast biopsy x 2 , Past Anesthesia/Blood Transfusion Reactions: Previous Problems w/ Anesthesia, Motion Sickness, Postoperative Nausea & Vomiting (PONV) Additional Past Anesthesia/Blood Transfusion Reaction / Comment(s): Has problems with the hiccups after surgery. Severe allergy to Dura Prep. Smoking Status: Never smoker - Past Family History Mother Family Medical History: Cancer Additional Family Medical History / Comment(s): Breast Cancer. Sister(s) Family Medical History: Cancer Additional Family Medical History / Comment(s): Breast Father Family Medical History: Coronary Artery Disease (CAD) Brother(s) Family Medical History: Cancer Son(s) Family Medical History: No Reported History Medications and Allergies Home Medications Medication Instructions Recorded Confirmed Type Atenolol [Tenormin] 25 mg PO DAILY 02/25/14 07/07/18 History Rosuvastatin Calcium [Crestor] 40 mg PO HS 05/17/15 07/06/18 History traMADol HCL [Ultram] 50 mg PO BID 05/19/16 07/06/18 History Multivitamins, Thera [Multivitamin 1 tab PO DAILY 07/13/17 07/06/18 History (formulary)] Omeprazole [PriLOSEC] 20 mg PO DAILY 07/13/17 07/06/18 History Aspirin 81 mg PO HS 11/02/17 07/06/18 History Lysine [l-Lysine] 500 mg PO DAILY 06/24/18 07/06/18 History Magnesium 200 mg PO DAILY 06/24/18 07/06/18 History Melatonin 5 mg PO HS PRN 06/24/18 07/06/18 History Dicyclomine HCl 20 - 80 mg PO DAILY PRN 06/28/18 07/07/18 History Turmeric Root Extract [Turmeric] 500 mg PO DAILY 06/28/18 07/06/18 History Escitalopram [Lexapro] 10 mg PO DAILY 07/06/18 07/06/18 History Allergies Allergy/AdvReac Type Severity Reaction Status Date / Time adhesive Allergy Rash/Hives Verified 07/07/18 08:05 latex Allergy Rash/Hives Verified 07/07/18 08:05 pentazocine lactate Allergy Confusion Verified 07/07/18 08:05 [From Lawrence] potassium chloride Allergy Rash/Hives Verified 07/07/18 08:05 DURA PREP Allergy Rash/Hives Uncoded 07/07/18 08:05 Surgical - Exam Vital Signs Temp Pulse Resp BP Pulse Ox 97.9 F 61 18 134/65 94 L 07/07/18 08:09 07/07/18 08:09 07/07/18 08:09 07/07/18 08:09 07/07/18 08:09 - General well developed, no distress - Eyes PERRL - ENT normal pinna - Neck no masses - Respiratory normal expansion - Cardiovascular Rhythm: regular - Abdomen Abdomen: soft, non tender Assessment and Plan Assessment: GERD, left-sided abdominal pain, history diverticula is. Patient will undergo EGD and colonoscopy.
--- NOTE | 2018-07-07 09:28 | P.OP ---
Date of Procedure: 07/07/18 Preoperative Diagnosis: GERD Diverticulosis Left-sided abdominal pain Postoperative Diagnosis: Antral gastritis Hiatal hernia Esophagitis Diverticulosis Procedure(s) Performed: EGD Colonoscopy Anesthesia: MAC Surgeon: Yousif Brock Pathology: other (Antrum, esophagus) Condition: stable Disposition: PACU Description of Procedure: The patient's placed on the endoscopy table in the lateral position. He received IV sedation. The gastroscope placed oropharynx passed in the esophagus and stomach. Scope then placed through the pylorus. The first and second portion of the duodenum appeared normal. Scope was then brought back the antrum and this appeared mildly inflamed. A biopsies was performed. The scope was then retroflexed and the remainder of the stomach appeared normal. The GE junction was at 38 cm. There was a moderate size hiatal hernia. The distal esophagus was minimal inflamed and a biopsies performed. The proximal esophagus appeared normal. The scope was withdrawn for patient. Next digital rectal exam was performed which revealed a few external hemorrhoids. The flexible colonoscope was then placed patient anus and passed throughout the colon. The scope could not gas beyond the splenic flexure secondary to tortuosity valve. Several attempts were made to maneuver the scope was impossible. We'll not was given as well. Scope was then brought back and the descending and sigmoid colon there was diverticular changes. There is known to diverticulitis. Scope was brought back into the rectum and this appeared normal. Scope was withdrawn for patient.
[2018-07-07] MEDS ORDERED: ALPRAZolam 0.5 MG TAB PO ONE (10:47)
[2018-07-07 11:27] VITALS: BP 175/104; PULSE 68; RESP 18
--- NOTE | 2018-07-07 15:04 | FL ---
EXAMINATION TYPE: FL barium enema DATE OF EXAM: 07/07/2018 COMPARISON: CT abdomen pelvis 06/24/2018 HISTORY: Left lower quadrant pain TECHNIQUE: A double contrast barium enema study is performed. FINDINGS: Tow Bar Driver view of the abdomen shows overall non-obstructive bowel gas pattern. Postop changes are noted at the L4-5, there are laminectomy changes, there is dextroscoliosis centered at L3. Surgic al clips present in the left hemipelvis, right upper quadrant. The patient's colon was filled in retrograde manner and subsequently insufflated.: Restrained, result ing double contrast barium enema evaluated under fluoroscopy, spot images and overhead images obtaine d. No evidence of any mass or polyp, obstructing or constricting lesion throughout the colon. Diverticul ar changes present within the sigmoid colon. There is marked tortuosity of the bowel which may limit the evaluation. Some retained fecal debris is suspected, difficult to exclude small polyps. IMPRESSION: Diverticulosis. Marked tortuosity of the colon may limit the exam. No annular constricti ng lesion is evident.
== END 2018-07-07 11:26 | disposition home or self-care (01) ==
LOC: ORWHC2ENDO 07:49
PROVIDERS: ATTEND Surgery
DX: K44.9 Diaphragmatic hernia without obstruction or gangrene (principal); K64.4 Residual hemorrhoidal skin tags; Q43.8 Other specified congenital malformations of intestine; K57.90 Diverticulosis of intestine, part unspecified, without perforation or abscess without bleeding; K58.9 Irritable bowel syndrome, unspecified; K29.50 Unspecified chronic gastritis without bleeding; K21.0 Gastro-esophageal reflux disease with esophagitis; M79.7 Fibromyalgia; E78.5 Hyperlipidemia, unspecified; I10 Essential (primary) hypertension; M41.9 Scoliosis, unspecified; M47.9 Spondylosis, unspecified; Z79.82 Long term (current) use of aspirin; Z79.891 Long term (current) use of opiate analgesic; Z79.899 Other long term (current) drug therapy; Z91.040 Latex allergy status; Z88.5 Allergy status to narcotic agent; Z91.09 Other allergy status, other than to drugs and biological substances
CPT/HCPCS: 88305; 74270; 43239; 45330; J1610; J2001; J2704; 45378

== ENCOUNTER → 2018-12-16 | Outpatient (CLI) | payer MEDICARE ==
--- NOTE | 2018-12-16 17:01 | FL ---
EXAMINATION: Cervical and Thoracic Esophagram DATE OF EXAM: 12/16/2018 CLINICAL INDICATION: 68-year-old female 3 months of dysphagia. Increasing episodes of choking and gag ging on foamy, mucousy buildup. COMPARISON: None Total Fluoroscopy Time: 2.02 minutes. Total images: 37. FINDINGS: The swallowing mechanism is normal. Anterior endplate spondylosis lower cervical spine causing focal impressions on the posterior wall of the cervical esophagus and mild narrowing without obstruction. There is sil hypertrophy of the cricopharyngeus. The thoracic portion has a normal course and caliber. [id number] tertiary peristaltic contracti ons are demonstrated. There is a sliding hiatal hernia which varies between tiny size to a more moderate to large size depe nding on breathing and position. The mucosa is normal and no persistent filling defect is encountered. There is severe gastroesophageal reflux to the level of the throat. IMPRESSION: 1. Moderate to large sized sliding hiatal hernia with severe gastroesophageal reflux to the level of the throat. 2. CP hypertrophy likely a secondary protective mechanism.
== END | disposition home or self-care (01) ==
LOC: RADFLWHC 09:24
PROVIDERS: ATTEND Otolaryngology
DX: K44.9 Diaphragmatic hernia without obstruction or gangrene (principal); K21.9 Gastro-esophageal reflux disease without esophagitis
CPT/HCPCS: 74220

== ENCOUNTER → 2019-01-12 | Outpatient (CLI) | payer MEDICARE ==
--- NOTE | 2019-01-13 12:22 | MM ---
Reason for exam: screening (asymptomatic). Last mammogram was performed 1 year and 4 months ago. History: Patient is postmenopausal and is of Ashkenazi Anabaptism descent. Family history of breast cancer in sister and breast cancer in mother at age 76. 2 benign excisional biopsies of the right breast. Took hormonal contraceptives for 5 years. Took estrogen for 12 years 8 months beginning at age 49. Physical Findings: A clinical breast exam by your physician is recommended on an annual basis and results should be correlated with mammographic findings. MG 3D Screening Mammo W/Cad Bilateral CC and MLO view(s) were taken. Prior study comparison: August 31, 2017, left breast MG 3d diag mammo w/cad LT. January 21, 2017, left breast MG 3d work up w/cad LT. The breast tissue is heterogeneously dense. This may lower the sensitivity of mammography. Stable benign calcifications. No significant changes when compared with prior studies. ASSESSMENT: Benign, BI-RAD 2 RECOMMENDATION: Routine screening mammogram of both breasts in 1 year.
== END ==
LOC: RADMAMWWP 11:17
PROVIDERS: ATTEND Family Medicine
DX: Z12.31 Encounter for screening mammogram for malignant neoplasm of breast (principal)
CPT/HCPCS: 77063; 77067

== ENCOUNTER → 2019-01-25 | Outpatient (CLI) | payer MEDICARE ==
[2019-01-25 16:36] LABS: Basophils % (A) 0 %; Eosinophils # (A) 0.2 k/uL (0-0.7); Eosinophils % (A) 3 %; HCT 38.9 % (34.0-46.0); HGB 12.5 gm/dL (11.4-16.0); Lymphocytes # (A) 2.1 k/uL (1.0-4.8); Lymphocytes % (A) 26 %; MCH 28.9 pg (25.0-35.0); MCV 90.2 fL (80.0-100.0); Mean Platelet Volume 6.9; Monocytes # (A) 0.3 k/uL (0-1.0); Monocytes % (A) 4 %; Neutrophils # (A) 5.2 k/uL (1.3-7.7); Neutrophils % (A) 64 %; Platelet Count 405 k/uL (150-450); RBC 4.31 m/uL (3.80-5.40); RDW 13.3 % (11.5-15.5); WBC 8.1 k/uL (3.8-10.6)
== END | disposition home or self-care (01) ==
LOC: LABPAT 15:34
PROVIDERS: ATTEND Surgery
DX: Z01.818 Encounter for other preprocedural examination (principal); K21.0 Gastro-esophageal reflux disease with esophagitis; Z01.812 Encounter for preprocedural laboratory examination
CPT/HCPCS: 36415; 85025; 93005

== ENCOUNTER 2019-02-02 07:01 | Day surgery (SDC) | payer MEDICARE ==
[2019-01-31 08:58] VITALS: BMI 31.6
[~2019-02-02 07:01] MED LIST changes: +LIDOCAINE 1% 20 ML VIAL (10MG/ML) FOR IV START INTRADERMA PRN
[2019-02-02 07:22] VITALS: TEMP 100.3
[2019-02-02] MEDS ORDERED: LIDOCAINE 1% INJ 10MG/ML (20 ML MDV) ONE (07:47)
[2019-02-02] MEDS ORDERED: PROPOFOL 10 MG/ML 20 ML VIAL IV ONE (07:47)
--- NOTE | 2019-02-02 07:50 | P.GSHP ---
History of Present Illness H&P Date: 02/02/19 Chief Complaint: GERD This is a 68-year-old female who presents safer EGD. Patient has had issues with GERD. Past Medical History Past Medical History: Fibromyalgia, GERD/Reflux, Hyperlipidemia, Hypertension Additional Past Medical History / Comment(s): Spinal stenosis with spondylosis and scoliosis, IBS, hx ulcer, had "kidney distress" from medications History of Any Multi-Drug Resistant Organisms: None Reported Past Surgical History: Appendectomy, Back Surgery, Breast Surgery, Section, Cholecystectomy, Hysterectomy, Joint Replacement, Orthopedic Surgery Additional Past Surgical History / Comment(s): RIGHT knee replacement, lumbar laminectomy, decompression fusion with ortiz, abdominoplasty, rt breast biopsy x 2, RT HAMMER TOE SX Past Anesthesia/Blood Transfusion Reactions: Previous Problems w/ Anesthesia, Motion Sickness, Postoperative Nausea & Vomiting (PONV) Additional Past Anesthesia/Blood Transfusion Reaction / Comment(s): Has problems with the hiccups after surgery. Severe allergy to Dura Prep. Past Psychological History: Anxiety Smoking Status: Never smoker Past Alcohol Use History: Rare Past Drug Use History: None Reported - Past Family History Mother Family Medical History: Cancer Additional Family Medical History / Comment(s): Breast Cancer. Sister(s) Family Medical History: Cancer Additional Family Medical History / Comment(s): Breast Father Family Medical History: Coronary Artery Disease (CAD) Brother(s) Family Medical History: Cancer Son(s) Family Medical History: No Reported History Medications and Allergies Home Medications Medication Instructions Recorded Confirmed Type Atenolol [Tenormin] 25 mg PO DAILY 02/25/14 02/02/19 History Rosuvastatin Calcium [Crestor] 40 mg PO HS 05/17/15 01/31/19 History traMADol HCL [Ultram] 50 mg PO BID 05/19/16 02/02/19 History Multivitamins, Thera [Multivitamin 1 tab PO DAILY 07/13/17 02/02/19 History (formulary)] Omeprazole [PriLOSEC] 20 mg PO DAILY 07/13/17 02/02/19 History Aspirin 81 mg PO HS 11/02/17 02/02/19 History Magnesium 200 mg PO DAILY 06/24/18 02/02/19 History Melatonin 5 mg PO HS PRN 06/24/18 01/31/19 History Turmeric Root Extract [Turmeric] 500 mg PO DAILY 06/28/18 02/02/19 History Oxybutynin Chloride [Ditropan XL] 10 mg PO HS 01/31/19 01/31/19 History Sertraline HCl [Zoloft] 50 mg PO BID 01/31/19 02/02/19 History Allergies Allergy/AdvReac Type Severity Reaction Status Date / Time adhesive Allergy Rash/Hives Verified 01/31/19 09:02 latex Allergy Rash/Hives Verified 01/31/19 09:02 pentazocine lactate Allergy Confusion Verified 01/31/19 09:02 [From [facility]] potassium chloride Allergy Rash/Hives Verified 01/31/19 09:02 DURA PREP Allergy Rash/Hives Uncoded 01/31/19 09:02 Surgical - Exam Vital Signs Temp Pulse Resp BP Pulse Ox 100.3 F H 72 14 159/74 96 02/02/19 07:21 02/02/19 07:21 02/02/19 07:21 02/02/19 07:21 02/02/19 07:21 - General well developed, well nourished, no distress - Eyes PERRL - ENT normal pinna - Neck no masses - Respiratory normal expansion - Cardiovascular Rhythm: regular - Abdomen Abdomen: soft, non tender Assessment and Plan Assessment: GERD. We'll perform EGD.
[2019-02-02 08:04] VITALS: RESP 16
--- NOTE | 2019-02-02 08:08 | P.OP ---
Date of Procedure: 02/02/19 Preoperative Diagnosis: GERD Postoperative Diagnosis: Antral gastritis Moderate size hiatal hernia Esophagitis Procedure(s) Performed: EGD Anesthesia: MAC Surgeon: Yousif Brock Pathology: other (Antrum, esophagus) Condition: stable Disposition: PACU Description of Procedure: The patient's placed on the endoscopy table in the lateral position. She received IV sedation. The gastric was placed oropharynx and passed into the esophagus and into the stomach. Scope was then placed through the pylorus. The first and second portion of the duodenum appeared normal. Scope was then brought back the antrum and this appeared moderately inflamed. A biopsies was performed. The scope was then retroflexed and remainder of the stomach appeared normal. There was a few benign fundal polyps. The patient had a moderate size hiatal hernia. The GE junction was at 38 cm. The distal esophagus appeared in flamed. A biopsies performed. The proximal esophagus appeared normal. Scope was withdrawn for patient..
[2019-02-02 08:26] VITALS: BP 125/80; PULSE 80
== END 2019-02-02 08:34 | disposition home or self-care (01) ==
LOC: ORWHC2ENDO 07:01
PROVIDERS: ATTEND Surgery
DX: K21.0 Gastro-esophageal reflux disease with esophagitis (principal); K29.70 Gastritis, unspecified, without bleeding; K44.9 Diaphragmatic hernia without obstruction or gangrene; I10 Essential (primary) hypertension; E78.5 Hyperlipidemia, unspecified; M79.7 Fibromyalgia; F41.9 Anxiety disorder, unspecified; F32.9 Major depressive disorder, single episode, unspecified; Z96.651 Presence of right artificial knee joint; Z98.1 Arthrodesis status; Z79.891 Long term (current) use of opiate analgesic; Z79.82 Long term (current) use of aspirin; Z79.899 Other long term (current) drug therapy; Z82.49 Family history of ischemic heart disease and other diseases of the circulatory system; Z91.040 Latex allergy status; Z88.8 Allergy status to other drugs, medicaments and biological substances; Z91.048 Other nonmedicinal substance allergy status
CPT/HCPCS: 43239; 88305

== ENCOUNTER 2019-02-03 08:54 | Observation (INO) | payer MEDICARE ==
[~2019-02-03 08:54] MED LIST changes: +DEXAMETHASONE SOD PHOSPHATE 10 MG/ML 1 ML VIAL IV ONE; +HEPARIN SODIUM,PORCINE 5,000 UNIT/ML 1 ML VIAL SQ ONE; +HYDROmorphone 0.5 MG/0.5 ML SYRINGE IVP PRN; +MIDAZOLAM (PF) 2 MG/2 ML VIAL IV PRN; +ONDANSETRON 4 MG/2 ML VIAL IVP ONE; +SCOPOLAMINE 1.5MG/72HR PATCH TRANSDERM ONE; +ceFAZolin IN SWFI 2 GM/20 ML SYRINGE IVP ONE
--- NOTE | 2019-02-03 11:39 | P.GSHP ---
History of Present Illness H&P Date: 02/03/19 Chief Complaint: GERD, This is a 68-year-old female with history of GERD.The patient has had long- standing problems with reflux esophagitis. The patient underwent recent EGD is found have evidence of esophagitis. Patient has been well informed on the proce dure of laparoscopic Shahriar fundoplication. The patient is aware the risk of the conversion to the open procedure, risk of injury to the stomach, liver and spleen. The patient is also a risk of recurrent GERD and dysphagia symptoms. The patient understands there is a postoperative diet of full liquids for 2 weeks after surgery. Past Medical History Past Medical History: Fibromyalgia, GERD/Reflux, Hyperlipidemia, Hypertension Additional Past Medical History / Comment(s): Spinal stenosis with spondylosis and scoliosis, IBS, hx ulcer, had "kidney distress" from medications History of Any Multi-Drug Resistant Organisms: None Reported Past Surgical History: Appendectomy, Back Surgery, Breast Surgery, Section, Cholecystectomy, Hysterectomy, Joint Replacement, Orthopedic Surgery Additional Past Surgical History / Comment(s): RIGHT knee replacement, lumbar laminectomy, decompression fusion with ortiz, abdominoplasty, rt breast biopsy x 2, RT HAMMER TOE SX Past Anesthesia/Blood Transfusion Reactions: Previous Problems w/ Anesthesia, Motion Sickness, Postoperative Nausea & Vomiting (PONV) Additional Past Anesthesia/Blood Transfusion Reaction / Comment(s): Has problems with the hiccups after surgery. Severe allergy to Dura Prep. Past Psychological History: Anxiety Smoking Status: Never smoker Past Alcohol Use History: Rare Past Drug Use History: None Reported - Past Family History Mother Family Medical History: Cancer Additional Family Medical History / Comment(s): Breast Cancer. Sister(s) Family Medical History: Cancer Additional Family Medical History / Comment(s): Breast Father Family Medical History: Coronary Artery Disease (CAD) Brother(s) Family Medical History: Cancer Son(s) Family Medical History: No Reported History Medications and Allergies Home Medications Medication Instructions Recorded Confirmed Type Atenolol [Tenormin] 25 mg PO DAILY 02/25/14 02/02/19 History Rosuvastatin Calcium [Crestor] 40 mg PO HS 05/17/15 02/03/19 History traMADol HCL [Ultram] 50 mg PO BID 05/19/16 02/02/19 History Multivitamins, Thera [Multivitamin 1 tab PO DAILY 10/16/17 05/08/19 History (formulary)] Omeprazole [PriLOSEC] 20 mg PO DAILY 07/13/17 02/02/19 History Aspirin 81 mg PO HS 11/02/17 02/02/19 History Magnesium 200 mg PO DAILY 06/24/18 02/03/19 History Melatonin 5 mg PO HS PRN 06/24/18 02/03/19 History Turmeric Root Extract [Turmeric] 500 mg PO DAILY 06/28/18 02/02/19 History Oxybutynin Chloride [Ditropan XL] 10 mg PO HS 01/31/19 02/03/19 History Sertraline HCl [Zoloft] 50 mg PO BID 01/31/19 02/02/19 History Allergies Allergy/AdvReac Type Severity Reaction Status Date / Time adhesive Allergy Rash/Hives Verified 01/31/19 09:02 latex Allergy Rash/Hives Verified 01/31/19 09:02 pentazocine lactate Allergy Confusion Verified 01/31/19 09:02 [From [facility]] potassium chloride Allergy Rash/Hives Verified 01/31/19 09:02 DURA PREP Allergy Rash/Hives Uncoded 01/31/19 09:02 Surgical - Exam Vital Signs Temp Pulse Resp BP Pulse Ox 97.5 F L 65 16 157/71 95 02/03/19 10:15 02/03/19 10:15 02/03/19 10:15 02/03/19 10:15 02/03/19 10:15 - General well developed, well nourished, no distress - Eyes PERRL - ENT normal pinna - Neck no masses, no bruits - Respiratory normal expansion - Cardiovascular Rhythm: regular - Abdomen Abdomen: soft, non tender Assessment and Plan Assessment: GERD Hiatal hernia We'll perform laparoscopic Shahriar fundal plication
[2019-02-03] MEDS ORDERED: NEOSTIGMINE 1 MG/ML 10 ML VIAL ONE (11:52)
[2019-02-03] MEDS ORDERED: ROCURONIUM BROMIDE 10 MG/ML 10 ML VIAL IV ONE (11:52)
[2019-02-03] MEDS ORDERED: LIDOCAINE 1% INJ 10MG/ML (20 ML MDV) ONE (11:52)
[2019-02-03] MEDS ORDERED: MIDAZOLAM 2 MG/2 ML VIAL ONE (11:52)
[2019-02-03] MEDS ORDERED: fentaNYL (PF) 50 MCG/ML 2 ML AMP ONE (11:52)
[2019-02-03] MEDS ORDERED: PROPOFOL 10 MG/ML 20 ML VIAL IV ONE (11:52)
[2019-02-03] MEDS ORDERED: KETOROLAC 30 MG/ML 1 ML VIAL ONE (11:52)
[2019-02-03] MEDS ORDERED: GLYCOPYRROLATE 0.2 MG/ML 2 ML VIAL ONE (11:52)
[2019-02-03] MEDS ORDERED: BUPIVACAIN-EPI 0.5%-1:200,000 30 ML VIAL SQ ONE (12:18)
[2019-02-03] MEDS ORDERED: LACTATED RINGERS 1,000 ML IV ONE (12:49)
[2019-02-03] MEDS ORDERED: ONDANSETRON 4 MG/2 ML VIAL IVP PRN (12:50)
--- NOTE | 2019-02-03 12:50 | P.OP ---
Date of Procedure: 02/03/19 Preoperative Diagnosis: GERD Postoperative Diagnosis: GERD Procedure(s) Performed: Laparoscopic Shahriar fundoplication Anesthesia: DIMA Surgeon: Yousif Brock Estimated Blood Loss (ml): 5 Pathology: none sent Condition: stable Disposition: PACU Description of Procedure: HThe patient was placed on the operating table in the supine position. The patient received general anesthesia. And was placed in dorsal lithotomy position. The patient was prepped and draped in the usual sterile fashion. The skin incision sites were anesthetized with 1% local Xylocaine. The skin was incised in the left periumbilical area and then using a blade less 5 mm trocar under direct visualization panel cavity was entered. After adequate insufflation the laparoscope was then placed into the peritoneal cavity. Next a 5 mm trochars placed in the right epigastric position. Another 5 millimeter trocar the right lateral position. Another 5 millimeter trocar in the left lateral position a 5 mm trocar is placed in the left epigastric position. And then the initial 5 mm trocar was exchanged for a 10 mm trocar. The left lateral lobe liver was retracted. The hernia was seen. The crural defect was then dissected using the Harmonic scissors device. A 360 crural dissection was performed the esophagus stomach was reduced back into the peritoneal Cavity. The crural defect was then closed using 2-0 Ethibond suture. Next the fundus of the stomach was mobilized using the Bryan scissors device. and then a 58- Croatian bougie dilator was placed oropharynx passed into the esophagus and stomach the fundal plication wrap was then performed by grasping the fundus posteriorly and bringing it around the esophagus and stomach fundoplication was then performed using 2-0 Ethibond suture. Care was taken that the fundal location rested over top of the intra-abdominal esophagus. There was no injury seen to the stomach or esophagus. The dilator was then withdrawn. The abdomen was irrigated there is no bleeding seen. The trochars were then withdrawn and then skin incision sites were closed using 3-0 Monocryl suture Steri-Strips are applied. Patient thought procedure well and sent to recovery room in stable condition.
[2019-02-03 14:40] VITALS: BMI 32.6
[2019-02-03] MEDS: HYDROmorphone 1 MG/ML 1 ML SYRINGE IVP PRN ×2 (17:01→21:27)
[2019-02-03] MEDS: METOCLOPRAMIDE 5 MG/ML 2 ML VIAL IVP SCH ×2 (17:14→23:23)
[2019-02-03] MEDS: D5-0.45% NACL WITH KCL 20MEQ/L 1,000 ML IV SCH (18:34)
[2019-02-03 23:23] VITALS: RESP 18
[2019-02-04] MEDS: D5-0.45% NACL WITH KCL 20MEQ/L 1,000 ML IV SCH (01:38)
[2019-02-04] MEDS: METOCLOPRAMIDE 5 MG/ML 2 ML VIAL IVP SCH (06:08)
[2019-02-04] MEDS: HYDROmorphone 1 MG/ML 1 ML SYRINGE IVP PRN ×2 (06:22→11:00)
[2019-02-04 07:47] VITALS: BP 110/74; PULSE 68; TEMP 98.1
--- NOTE | 2019-02-04 08:52 | FL ---
EXAMINATION TYPE: FL esophagus cervic/pharynx DATE OF EXAM: 02/04/2019 LIMITED UGI-ESOPHAGRAM: CLINICAL HISTORY: Epigastric pain and reflux-like symptoms status post Shane fundoplication surgery yesterday. History of hiatal hernia. TECHNIQUE: Limited esophagram is performed utilizing 25 oz of Isovue-370. A total of roughly 30 seco nds of fluoroscopic time was utilized during procedure. 25 spot images are saved to PACS. COMPARISON: CT abdomen and pelvis June 24, 2018. Esophagram December 16, 2018 FINDINGS: The patient is able to swallow contrast without difficulty or delay. 7 abnormal secondary and tertiary contractions are noted mid to distal esophagus.. There is good flow of contrast along th e diaphragmatic hiatus into the stomach, there is no evidence of contrast extravasation to suggest le ak. No persistent fixed hiatal hernia is seen. Patient remains asymptomatic. Small degree of pneumope ritoneum below right hemidiaphragm is presumed postsurgical. Cholecystectomy clips are incidentally r edemonstrated. IMPRESSION: No evidence of leak or significant obstruction status post Shane fundoplication surgery yesterday.
[2019-02-04] MEDS ORDERED: ENOXAPARIN 40 MG/0.4 ML SYRINGE SQ SCH (09:00)
--- NOTE | 2019-02-04 14:11 | P.DS ---
Providers Date of admission: 02/03/19 21:27 Expected date of discharge: 02/04/19 Attending physician: Yousif Brock Consults: 02/03/19 12:50 Consult Physician Routine Consulting Provider: Carlos Cary Consult Reason/Comments: Medical management Do you want consulting provider notified?: Yes Primary care physician: Carlos [place] Hospital Course: This is a 68-year-old female who underwent laparoscopic Shahriar fundal location. Patient did well postoperatively. Please see chart for details. Procedures: Laparoscopic Shahriar fundoplication Patient Condition at Discharge: Good Plan - Discharge Summary Discharge Rx Participant: Yes New Discharge Prescriptions: New Docusate [Colace] 100 mg PO BID #20 capsule HYDROcodone/APAP 7.5-325MG [[place] 7.5-325] 1 tab PO Q6HR PRN 3 Days #10 tab PRN Reason: Pain No Action Atenolol [Tenormin] 25 mg PO DAILY Rosuvastatin Calcium [Crestor] 40 mg PO HS traMADol HCL [Ultram] 50 mg PO BID Multivitamins, Thera [Multivitamin (formulary)] 1 tab PO DAILY Omeprazole [PriLOSEC] 20 mg PO DAILY Aspirin 81 mg PO HS Melatonin 5 mg PO HS PRN PRN Reason: Insomnia Magnesium 200 mg PO DAILY Turmeric Root Extract [Turmeric] 500 mg PO DAILY Oxybutynin Chloride [Ditropan XL] 10 mg PO HS Sertraline HCl [Zoloft] 50 mg PO BID Discharge Medication List Atenolol [Tenormin] 25 mg PO DAILY 02/25/14 [History] Rosuvastatin Calcium [Crestor] 40 mg PO HS 05/17/15 [History] traMADol HCL [Ultram] 50 mg PO BID 05/19/16 [History] Multivitamins, Thera [Multivitamin (formulary)] 1 tab PO DAILY 07/13/17 [History] Omeprazole [PriLOSEC] 20 mg PO DAILY 07/13/17 [History] Aspirin 81 mg PO HS 11/02/17 [History] Magnesium 200 mg PO DAILY 06/24/18 [History] Melatonin 5 mg PO HS PRN 06/24/18 [History] Turmeric Root Extract [Turmeric] 500 mg PO DAILY 06/28/18 [History] Oxybutynin Chloride [Ditropan XL] 10 mg PO HS 01/31/19 [History] Sertraline HCl [Zoloft] 50 mg PO BID 01/31/19 [History] Docusate [Colace] 100 mg PO BID #20 capsule 02/04/19 [Rx] HYDROcodone/APAP 7.5-325MG [[place] 7.5-325] 1 tab PO Q6HR PRN 3 Days #10 tab 02/04/19 [Rx] Follow up Appointment(s)/Referral(s): Yousif Brock MD [STAFF PHYSICIAN] - 02/17/19 2:00 pm Patient Instructions/Handouts: *Surgery [facility] - ([facility]) Lap Shahriar Fundiplication Post-Op Instructions, Pain Management (ED), Fundoplication in Adults (DC)
--- NOTE | 2019-02-04 14:28 | P.CONS ---
History of Present Illness - Reason for Consult Consult date: 02/04/19 Requesting physician: Yousif Brock - Chief Complaint Medical management hypertension, anxiety - History of Present Illness This is a 68-year-old female with history of reflux esophagitis, hiatal hernia, status post laparoscopic Shahriar fundoplication, postop day #1. Tolerated procedure well. Passing flatus. Pain controlled. Denies lightheadedness dizziness or focal deficits. Denies chest pain, palpitations or shortness of breath. Vital signs stable. Review of Systems ROS Statement: Those systems with pertinent positive or pertinent negative responses have been documented in the HPI. ROS Other: All systems not noted in ROS Statement are negative. Past Medical History Past Medical History: Fibromyalgia, GERD/Reflux, Hyperlipidemia, Hypertension Additional Past Medical History / Comment(s): Spinal stenosis with spondylosis and scoliosis, IBS, hx ulcer, had "kidney distress" from medications History of Any Multi-Drug Resistant Organisms: None Reported Past Surgical History: Appendectomy, Back Surgery, Breast Surgery, Section, Cholecystectomy, Hysterectomy, Joint Replacement, Orthopedic Surgery Additional Past Surgical History / Comment(s): RIGHT knee replacement, lumbar laminectomy, decompression fusion with ortiz, abdominoplasty, rt breast biopsy x 2, RT HAMMER TOE SX Past Anesthesia/Blood Transfusion Reactions: Previous Problems w/ Anesthesia, Motion Sickness, Postoperative Nausea & Vomiting (PONV) Additional Past Anesthesia/Blood Transfusion Reaction / Comm: Has problems with the hiccups after surgery. Severe allergy to Dura Prep. Past Psychological History: Anxiety Smoking Status: Never smoker Past Alcohol Use History: Rare Past Drug Use History: None Reported - Past Family History Mother Family Medical History: Cancer Additional Family Medical History / Comment(s): Breast Cancer. Sister(s) Family Medical History: Cancer Additional Family Medical History / Comment(s): Breast Father Family Medical History: Coronary Artery Disease (CAD) Brother(s) Family Medical History: Cancer Son(s) Family Medical History: No Reported History Medications and Allergies Home Medications Medication Instructions Recorded Confirmed Type Atenolol [Tenormin] 25 mg PO DAILY 02/25/14 02/03/19 History Rosuvastatin Calcium [Crestor] 40 mg PO HS 05/17/15 02/03/19 History traMADol HCL [Ultram] 50 mg PO BID 05/19/16 02/03/19 History Multivitamins, Thera [Multivitamin 1 tab PO DAILY 07/13/17 02/03/19 History (formulary)] Omeprazole [PriLOSEC] 20 mg PO DAILY 07/13/17 02/03/19 History Aspirin 81 mg PO HS 11/02/17 02/03/19 History Magnesium 200 mg PO DAILY 06/24/18 02/03/19 History Melatonin 5 mg PO HS PRN 06/24/18 02/03/19 History Turmeric Root Extract [Turmeric] 500 mg PO DAILY 06/28/18 02/03/19 History Oxybutynin Chloride [Ditropan XL] 10 mg PO HS 01/31/19 02/03/19 History Sertraline HCl [Zoloft] 50 mg PO BID 01/31/19 02/03/19 History Docusate [Colace] 100 mg PO BID #20 capsule 02/04/19 Rx HYDROcodone/APAP 7.5-325MG [[place] 1 tab PO Q6HR PRN 3 Days #10 tab 02/04/19 Rx 7.5-325] Allergies Allergy/AdvReac Type Severity Reaction Status Date / Time adhesive Allergy Rash/Hives Verified 02/03/19 23:21 latex Allergy Rash/Hives Verified 02/03/19 23:21 pentazocine lactate Allergy Confusion Verified 02/03/19 23:21 [From [place]] potassium chloride Allergy Rash/Hives Verified 02/04/19 01:35 DURA PREP Allergy Rash/Hives Uncoded 01/31/19 09:02 Physical Exam Vitals: Vital Signs Temp Pulse Pulse Pulse Resp BP BP 02/04/19 07:46 98.1 F 68 18 02/04/19 06:15 02/04/19 04:12 97.6 F 72 18 02/03/19 23:21 97.8 F 73 18 02/03/19 21:29 97.8 F 78 20 02/03/19 21:02 02/03/19 16:15 82 16 133/68 02/03/19 15:45 80 16 134/66 02/03/19 15:15 80 16 126/62 02/03/19 15:00 80 16 132/69 02/03/19 14:45 80 16 126/62 02/03/19 14:30 79 16 126/64 02/03/19 14:15 99.2 F 74 16 138/71 02/03/19 13:55 76 16 134/68 02/03/19 13:40 77 16 137/67 02/03/19 13:25 78 16 143/66 02/03/19 13:10 98.1 F 82 14 135/61 02/03/19 10:15 97.5 F L 65 16 157/71 BP Pulse Ox 02/04/19 07:46 110/74 94 L 02/04/19 06:15 94 L 02/04/19 04:12 141/86 95 02/03/19 23:21 111/67 94 L 02/03/19 21:29 124/71 96 02/03/19 21:02 87 L 02/03/19 16:15 93 L 02/03/19 15:45 93 L 02/03/19 15:15 94 L 02/03/19 15:00 93 L 02/03/19 14:45 94 L 02/03/19 14:30 93 L 02/03/19 14:15 94 L 02/03/19 13:55 99 02/03/19 13:40 99 02/03/19 13:25 97 02/03/19 13:10 93 L 02/03/19 10:15 95 Intake and Output 02/03/19 02/04/19 02/04/19 22:59 06:59 14:59 Output Total 700 1300 Balance -700 -1300 Output: Urine 700 1300 PHYSICAL EXAM: VITAL SIGNS: As above GENERAL: Sitting up in bed, no acute distress HEENT: Conjunctivae normal. eyes normal. Oral mucosa moist NECK: No JVD. No thyroid enlargement. No LNs CARDIOVASCULAR: S1, S2 muffled. No murmur RESPIRATION: Breath sounds diminished in the bases. No rhonchi or crackles. No bronchial breathing. ABDOMEN: Soft, status post surgery, dressings over her laparoscopic sites clean dry and intact . No guarding. no masses palpable. Bowel sounds heard. LEGS: No edema. no swelling PSYCHIATRY: Alert and oriented -3, mood and affect normal. NERVOUS SYSTEM: Cranial N 2-12 grossly normal. Moves all 4 limbs. Diffuse weakness No focal deficits. Skin: no lesions,no rash Joints: No active swelling. No inflammation. Lymphatic system. No LN neck axilla or groin. Assessment and Plan Assessment: -Reflux esophagitis, status post laparoscopic Shahriar fundoplication -Gastroesophageal reflux disease -History of PONV -Hiatal hernia -Hypertension -Anxiety Plan: Continue on current medication regime ,monitoring and symptomatic treatment. Completed esophagram reporting no evidence of leak or significant obstruction, diet has been advanced to the Shahriar clears, tolerating well. Discharge planning in progress for this afternoon as per surgery. Home meds have been reviewed and resumed. Aggressive pulmonary toileting. Follow-up PCP in 1 week. Further recommendations to follow. Thank you Dr. Brock for the consult. The impression and plan of care has been dictated as directed. : I performed a history and examination of this patient, discussed the same with the dictator. I agree with the dictator's note ,documented as a scribe. Any additional findings or plans will be noted. Time taken: 35 minutes
== END 2019-02-04 14:46 ==
LOC: OR 08:54 → 6PED 12:53 → OR 21:26 → 6PED 21:27
PROVIDERS: ADMIT Surgery; ATTEND Surgery
DX: K21.0 Gastro-esophageal reflux disease with esophagitis (principal); K44.9 Diaphragmatic hernia without obstruction or gangrene; M79.7 Fibromyalgia; E78.5 Hyperlipidemia, unspecified; I10 Essential (primary) hypertension; M41.9 Scoliosis, unspecified; K58.9 Irritable bowel syndrome, unspecified; M47.9 Spondylosis, unspecified; M48.00 Spinal stenosis, site unspecified; Z90.49 Acquired absence of other specified parts of digestive tract; F41.9 Anxiety disorder, unspecified; Z80.3 Family history of malignant neoplasm of breast; Z82.49 Family history of ischemic heart disease and other diseases of the circulatory system; Z79.899 Other long term (current) drug therapy; Z79.82 Long term (current) use of aspirin; Z79.891 Long term (current) use of opiate analgesic; Z91.040 Latex allergy status; Z88.8 Allergy status to other drugs, medicaments and biological substances; Z91.048 Other nonmedicinal substance allergy status; Z98.1 Arthrodesis status
CPT/HCPCS: 94760; 74210; 43280; G0378 ×2; J2250; J1644; J1100; J2710; J2765 ×2; J2405; J2001; J1650; J3010; J1885; J1170 ×2; J2704; J0690; Q9967

== ENCOUNTER → 2019-07-25 | Outpatient (CLI) | payer MEDICARE ==
--- NOTE | 2019-07-25 13:50 | XR ---
Lumbar spine HISTORY: Low back pain 3 views of the lumbar spine correlated to prior exam 01/04/2016 There is no interval change. Cervical clips again noted in the left hemipelvis. Atherosclerotic vascu lar calcifications are also noted. IMPRESSION: Rotatory scoliosis, severe degenerative disc disease, no step changes.
--- NOTE | 2019-07-25 13:51 | XR ---
Lasix spine HISTORY: Back pain 3 views of the thoracic spine There is a scoliotic curvature which is S-shaped within the thoracic lumbar spine. Multilevel spondyl osis is present. Thoracic vertebral bodies show preserved height. Bone mineralization is mildly reduc ed. Loss of disc height present at intervertebral levels. Degenerative disc change also noted in the cervical spine. Surgical clips are present in the right upper quadrant. IMPRESSION: Degenerative disc disease and scoliosis.
== END | disposition home or self-care (01) ==
LOC: RADXRMAIN 13:08
PROVIDERS: ATTEND Family Medicine
DX: M51.36 Other intervertebral disc degeneration, lumbar region (principal); M51.34 Other intervertebral disc degeneration, thoracic region; M41.86 Other forms of scoliosis, lumbar region; M41.84 Other forms of scoliosis, thoracic region
CPT/HCPCS: 72072; 72100

== ENCOUNTER → 2020-07-21 | Outpatient (CLI) | payer MEDICARE ==
--- NOTE | 2020-07-22 06:41 | CT ---
EXAMINATION TYPE: CT shoulder LT wo con DATE OF EXAM: 07/21/2020 COMPARISON: None. HISTORY: left shoulder pain and decreased ROM, complete rotator cuff tear per order. CT DLP: 266.7 mGycm Automated exposure control for dose reduction was used. FINDINGS: Slight type II downsloping acromion. Acromioclavicular joint appears within normal limits. No signifi cant spurring is seen. Advanced degenerative change glenohumeral joint with marked joint space loss, there is extensive subc hondral cystic change in the osseous glenoid and medial humeral head. There is large osteophyte from the inferior medial aspect of the humeral head noted. Slight anteversion measured roughly 12 degrees. Anterior inferior osseous glenoid shows 7 x 6 mm bony fragment axial image 41. Rotator cuff muscle bulk fairly well maintained. No significant shoulder effusion. Visualized ribs are intact. Visualized left lung is clear. Cardiomegaly noted on localizer. IMPRESSION: As above. Advanced glenohumeral joint arthropathy.
== END | disposition home or self-care (01) ==
LOC: RADCTMAIN 07:06
PROVIDERS: ATTEND Orthopaedic Surgery Sports Medicine
DX: M19.012 Primary osteoarthritis, left shoulder (principal); M75.122 Complete rotator cuff tear or rupture of left shoulder, not specified as traumatic

== ENCOUNTER → 2020-07-25 | Outpatient (CLI) | payer MEDICARE ==
[2020-07-25 11:18] LABS: Basophils % (A) 1 %; Eosinophils # (A) 0.2 k/uL (0-0.7); Eosinophils % (A) 5 %; HCT 37.6 % (34.0-46.0); HGB 11.9 gm/dL (11.4-16.0); Lymphocytes # (A) 1.7 k/uL (1.0-4.8); Lymphocytes % (A) 37 %; MCH 29.7 pg (25.0-35.0); MCHC 31.7 g/dL (31.0-37.0); MCV 93.7 fL (80.0-100.0); Mean Platelet Volume 6.7; Monocytes # (A) 0.3 k/uL (0-1.0); Monocytes % (A) 5 %; Neutrophils # (A) 2.3 k/uL (1.3-7.7); Neutrophils % (A) 49 %; Platelet Count 319 k/uL (150-450); RBC 4.02 m/uL (3.80-5.40); RDW 12.7 % (11.5-15.5); WBC 4.7 k/uL (3.8-10.6)
[2020-07-25 11:30] LABS: Albumin 4.5 g/dL (3.5-5.0); Calcium 9.8 mg/dL (8.4-10.2); Potassium 4.9 mmol/L (3.5-5.1); Total Bilirubin 0.5 mg/dL (0.2-1.3)
[2020-07-25 11:38] LABS: Appearance,Urine Clear (Clear); Bilirubin,Urine Negative (Negative); Blood,Urine Negative (Negative); Color,Urine Yellow; Glucose,Urine (UA) Negative (Negative); Hyaline Casts,Urine 1 /lpf (0-2); INR 1.1 (<1.2); Ketones,Urine Negative (Negative); Leukocyte Esterase,Urine Trace (Negative); Mucus,Urine Rare /hpf; Nitrite,Urine Negative (Negative); PH, Urine 5.5 (5.0-8.0); Partial Thromboplastin Time 24.1 sec (22.0-30.0); Protein,Urine Negative (Negative); Prothrombin Time 11.2 sec (9.0-12.0); RBC,Urine 1 /hpf (0-5); Specific Gravity,Urine 1.029 (1.001-1.035); Squamous Epithelial Cell,Urine <1 /hpf (0-4); Urobilinogen,Urine <2.0 mg/dL (<2.0); WBC,Urine 2 /hpf (0-5)
== END | disposition home or self-care (01) ==
LOC: LABPAT 09:33
PROVIDERS: ATTEND Orthopaedic Surgery Sports Medicine
DX: Z01.818 Encounter for other preprocedural examination (principal); Z01.812 Encounter for preprocedural laboratory examination
CPT/HCPCS: 80053; 81001; 85025; 85610; 85730; 87070; 93005

== ENCOUNTER 2020-08-09 12:09 | Inpatient (IN) | payer MEDICARE ==
[~2020-08-09 12:09] MED LIST changes: +ACETAMINOPHEN TAB 500 MG TAB PO ONE; -DEXAMETHASONE SOD PHOSPHATE 10 MG/ML 1 ML VIAL IV ONE; +DEXAMETHASONE SOD PHOSPHATE 4 MG/ML 1 ML VIAL IV ONE; +GABAPENTIN 300 MG CAP PO ONE; -HEPARIN SODIUM,PORCINE 5,000 UNIT/ML 1 ML VIAL SQ ONE; -LACTATED RINGERS 1,000 ML IV SCH; -LIDOCAINE 1% 20 ML VIAL (10MG/ML) FOR IV START INTRADERMA PRN; +MELOXICAM 7.5 MG TAB PO ONE; -MIDAZOLAM (PF) 2 MG/2 ML VIAL IV PRN; -SCOPOLAMINE 1.5MG/72HR PATCH TRANSDERM ONE; +TRANEXAMIC ACID 1,000 MG in SODIUM CHLORIDE 0.9% 100 ML IVPB ONE; -ceFAZolin IN SWFI 2 GM/20 ML SYRINGE IVP ONE
[2020-08-09] MEDS ORDERED: LIDOCAINE 1% (10MG/ML) FOR IV START INTRADERMA ONE (13:08)
[2020-08-09] MEDS: LACTATED RINGERS 1,000 ML IV SCH ×2 (13:16→17:44)
[2020-08-09] MEDS ORDERED: fentaNYL (PF) 50 MCG/ML 2 ML AMP IVP ONE (13:39)
[2020-08-09] MEDS ORDERED: MIDAZOLAM 2 MG/2 ML VIAL IVP ONE (13:39)
[2020-08-09] MEDS ORDERED: TEMAZEPAM 15 MG CAP PO PRN (13:55)
[2020-08-09] MEDS ORDERED: PROCHLORPERAZINE SUPPOSITORY 25 MG SUPP RECTAL PRN (13:55)
[2020-08-09] MEDS ORDERED: SENNOSIDES-DOCUSATE SODIUM 1 EACH TAB PO PRN (13:55)
[2020-08-09] MEDS ORDERED: ONDANSETRON 4 MG/2 ML VIAL IVP PRN (13:55)
[2020-08-09] MEDS ORDERED: HYDROmorphone 0.5 MG/0.5 ML SYRINGE IVP PRN ×2 (13:55)
[2020-08-09] MEDS ORDERED: METOCLOPRAMIDE 5 MG/ML 2 ML VIAL IVP PRN (13:55)
[2020-08-09] MEDS ORDERED: HYDROcodone/APAP 7.5-325MG 1 EACH TAB PO PRN ×2 (14:00)
[2020-08-09] MEDS ORDERED: ePHEDrine SULFATE/0.9% NACL/PF 50 MG/5 ML SYRINGE IV ONE (14:04)
[2020-08-09] MEDS ORDERED: SUCCINYLCHOLINE CHLORIDE 100 MG/5 ML SYR IV ONE (14:04)
[2020-08-09] MEDS ORDERED: LIDOCAINE 1% INJ 10MG/ML (20 ML MDV) ONE (14:04)
[2020-08-09] MEDS ORDERED: fentaNYL (PF) 50 MCG/ML 2 ML AMP ONE (14:04)
[2020-08-09] MEDS ORDERED: diphenhydrAMINE 50 MG/ML 1 ML VIAL ONE (14:04)
[2020-08-09] MEDS ORDERED: ROCURONIUM 10 MG/ML (10 ML VIAL) IV ONE (14:04)
[2020-08-09] MEDS ORDERED: PHENYLEPHRINE-0.9% NACL SYG 1 MG/10 ML SYRINGE ONE (14:04)
[2020-08-09] MEDS ORDERED: ROPIVACAINE 5 MG/ML 30 ML VIAL ONE (14:04)
[2020-08-09] MEDS ORDERED: PROPOFOL 10 MG/ML 20 ML VIAL IV ONE (14:04)
[2020-08-09] MEDS ORDERED: MIDAZOLAM 2 MG/2 ML VIAL ONE (14:04)
[2020-08-09] MEDS ORDERED: ceFAZolin 3,000 MG in SODIUM CHLORIDE 0.9% IRRIGATIO 3,000 ML IRRIGATION ONE (14:08)
--- NOTE | 2020-08-09 14:29 | P.ANPRN ---
Procedure Note - Anesthesia - Nerve Block Performed Left Interscalene Single Time Out Performed: Yes Date of Procedure: 08/09/20 Procedure Start Time: 13:38 Procedure Stop Time: 13:47 Location of Patient: PreOp Indication: Requested by Surgeon Specifically requested for management of pain by DrJuanita: Lance Eason Sedation Type: Sedate with meaningful contact maintained Preparation: Sterile Prep Position: Supine Catheter: None Needle Types: Pajunk Needle Gauge: 21 Ultrasound used to visualize needle placement: Yes Ultrasound used to observe medication spread: Yes Injectate: 0.5% Ropivacaine (see comment for volume) Blood Aspirated: No Pain Paresthesia on Injection Noted: No Resistance on Injection: Normal Image Stored and Saved: Yes Events: Uneventful and Well Tolerated (20 ml Ropivacaine 0.5%)
[2020-08-09] MEDS ORDERED: LACTATED RINGERS 1,000 ML IV ONE (15:12)
--- NOTE | 2020-08-09 17:04 | XR ---
EXAMINATION TYPE: XR shoulder limited LT DATE OF EXAM: 08/09/2020 COMPARISON: NONE HISTORY: Surgery TECHNIQUE: FINDINGS: Single view shows a left shoulder prosthesis. Components appear in anatomic position. IMPRESSION: No complicating process.
--- NOTE | 2020-08-09 20:46 | OP ---
OPERATIVE REPORT DATE OF OPERATION: 08/09/2020. SURGEON: Lance Eason M.D. WIRELINE SUPERVISOR: Vince HOOD. PREOPERATIVE DIAGNOSIS: Left shoulder osteoarthrosis. POSTOP DIAGNOSIS: Left shoulder osteoarthrosis with massive rotator cuff tear. OPERATION PERFORMED: Left reverse total shoulder arthroplasty. ANESTHESIA: General endotracheal. ESTIMATED BLOOD LOSS: 100 mL. DRAINS: One deep drain. COMPLICATIONS: None apparent. DISPOSITION: Postanesthesia care unit. INDICATIONS: Oxana is a very pleasant 70-year-old female with longstanding left shoulder pain. Workup including x-rays and a CT scan revealed advanced osteoarthrosis of the left shoulder. At this point, it is felt that she has failed conservative management. She would like to proceed with operative intervention. The risks of procedure were discussed with her in detail. These risks include, but are not limited to risk of infection, nerve damage, bleeding, pain, instability in the shoulder, loosening of the implants and deep infection. There is also risk of deep vein thrombosis which could lead to fatal pulmonary embolism. The patient understood the risks. All of her questions with regard to the risks were answered to her satisfaction. Appropriate informed consent was obtained. DESCRIPTION OF PROCEDURE: The patient identified in preop holding area. Surgical site was marked by both the patient and myself. She was given 2 g of Ancef IV for prophylactic purposes, was then transferred to the operative suite. She was placed supine on the operative table. A general anesthetic was then administered and dosed per the anesthesia without apparent complication. Examination under anesthesia was performed of the left shoulder. She had elevation to 90 degrees. External rotation at the side was to 20 degrees. The patient's left upper extremity was then prepped and draped in usual sterile fashion. Standard surgical pause undertaken to ensure that we were operating the correct site and that appropriate preoperative antibiotics were given. All staff in the room were in agreement and we proceeded. The acromion and AC joint, clavicle and coracoid were marked with a surgical pen. A planned incision starting at the level of clavicle and extending distally over the deltopectoral interval approximately 1 cm lateral to the coracoid was marked surgical pen. The incision was then made with a 10 blade scalpel. Dissection carried down sharply to the deltoid fascia. The deltopectoral interval was then identified at the level of the clavicle. A small band retractor was then placed onto the proximal deltoid. I then released the deltoid fascia on the lateral aspect of the cephalic vein. The vein was then protected and left in its bed medially. The cephalic vein was protected and preserved throughout the entire case. I then identified the clavipectoral fascia. This was incised proximally to the level of the coracoacromial ligament. The coracoacromial ligament was then left intact. I then used my finger to spread the interval between the conjoint tendon and the subscapularis. I felt for the axillary nerve which was readily palpable. I then cleared the subacromial subdeltoid spaces of bursal and scar tissue. I then utilized a Shah retractor to hold the deltoid and expose the humeral head. She did have a very large to massive tear. The entire supraspinatus, infraspinatus was torn. I then proceeded to release the subscapularis and the anterior inferior shoulder capsule of the rotator cuff. The course of the biceps tendon was identified. She had a previous traumatic long head biceps tendon rupture. I then released the subscapularis and capsule intratendinous. The subscapularis and capsule release extended distally in a lazy-S fashion approximately 1 cm medial to the bicipital groove. Then I continued to release the capsule along the inferior neck in a vertical fashion to approximately the 6 o'clock position. Great care was taken to ensure the capsule was always visualized as it was released as to avoid injuring the axillary nerve. I then brought the Vill[place]ob[place] supervisor [employer] with the arm externally rotated and abducted. I continued to release the capsule inferomedially to the 4 o'clock position. She had significant inferior osteophytes. These were now removed as well. This was done with a rongeur. I then proceeded with preparation of the humerus. I removed all the goat's desai osteophytes. I then removed the subchondral plate from the superior aspect of the humeral head utilizing a large rongeur. I then utilized a starting reamer to gain access to the humeral canal. This was approximately 1 cm medial to the rotator cuff insertion and 1 cm posterior to the bicipital groove. I then prepared the humeral canal with hand reaming. I started with a 4 mm reamer and progressed incrementally until firm resistance was encountered at 9 mm. The reamer handle was then left in place. I then utilized a humeral resection guide set at 30 degrees of retrotorsion. The cutting block was then set at the insertion of the rotator cuff. I then proceed to osteotomize the humeral head with an oscillating saw. I then removed the resection guide and then completed the osteotomy. I then proceeded with the trial stem placement. I broached from 6 mm broach up to a 9 mm broach. This was then left in place. At this point a bone hook was then utilized to pull the humerus out lateral. I inspected the joint for any loose bodies. She did have some small loose bodies. These were removed. The Bhattman retractor was then placed on the posterior glenoid rim. The arm was then placed in approximately 70-80 degrees of abduction and in slight flexion on a Villalobos stand. I then proceeded to remove the hypertrophic labrum to definitively identify the actual glenoid. I then utilized a mini base plate starting guide. The pin was placed slightly inferior in the center of the glenoid. The pin was also inserted with approximately 10 degrees of inferior tilt. I then utilized the mini base plate reamer. Reaming was then taken down and as minimal reaming as possible was done as to preserve as much the subchondral bone as possible. I then placed the real mini base plate. This was impacted onto the glenoid. I then proceeded with placement of the central screw. A 25 mm central screw was chosen. The screw was then inserted. It had an excellent purchase in bone. I was able to rotate the scapula through the screwdriver when the screw was fully seated. I then proceeded to place the peripheral locking screws. These were 5 mm locking screws. I placed the posterior, superior and inferior screws. The inferior screw was 20 mm. The superior screw was 20 mm and the posterior screw was 15 mm. I then utilized a standard glenosphere. The taper was then utilized to inferiorly offset the glenosphere. The glenosphere was then impacted into the base plate with a dry Buchanan taper. It was checked and was seated very firmly. I then proceeded with trialing. I started with a poly standard base plate combination. There was a fairly difficult reduction. The shoulder was very stable throughout a full range of motion. There was very minimal shuck. The conjoined tendon was of appropriate tension and there was no impingement noted through range of motion. The shoulder was then redislocated very carefully. I then proceeded with placement of the real humeral components. The real humeral stem was a Biomet 9 mini humeral stem. This was impacted in 30 degrees of retrotorsion. The standard poly was placed onto the standard base plate on the back table. The Buchanan taper was dried and the base plate was then impacted onto the real humeral stem. The shoulder was then reduced. Again it was a slightly difficult reduction. It was very stable throughout a full range of motion. There is no impingement noted. The conjoined tendon was of appropriate tension. At this point, we proceeded with closure. I evaluated the subscapularis. It was quite contracted and stiff. I did not repair the subscapularis. I then also felt for the axillary nerve which was readily palpable and intact. The shoulder was then thoroughly irrigated with sterile saline solution. Antibiotic added with via pulse lavage. Approximately 500 mg of vancomycin powder was then placed deep. Deep drain was then placed and brought out superiorly away from the incision. The deltopectoral interval was then reapproximated with 0 Vicryl interrupted suture. The subcutaneous tissue was then again irrigated with sterile saline solution with antibiotic added. The remaining 500 mg of vancomycin powder was then placed subcutaneously. The subcutaneous tissue was then closed with 2-0 Vicryl interrupted suture and the skin was closed with a running 3-0 Quill suture. Dermabond was applied to the incision. Sterile compressive dressing was then applied. The patient's left upper extremity was placed into a standard sling. All sponge and needle counts were deemed correct prior to closure. The patient tolerated the procedure without apparent complication. She was transferred to recovery room in stable condition. MMODL / IJN: [id number] /
[2020-08-09] MEDS ORDERED: ACETAMINOPHEN TAB 325 MG TAB PO PRN (21:11)
[2020-08-10] MEDS: LACTATED RINGERS 1,000 ML IV SCH ×4 (00:39→20:08)
[2020-08-10] MEDS: hydrOXYzine pamoate 25 MG CAP PO PRN ×4 (03:03→20:02)
[2020-08-10] MEDS: HYDROmorphone 0.5 MG/0.5 ML SYRINGE IVP PRN ×3 (05:35→21:26)
[2020-08-10 08:10] LABS: Basophils % (A) 0 %; Eosinophils % (A) 0 %; HCT 33.7 % (34.0-46.0); HGB 11.2 gm/dL (11.4-16.0); Lymphocytes % (A) 10 %; MCHC 33.3 g/dL (31.0-37.0); Mean Platelet Volume 6.8; Monocytes # (A) 0.4 k/uL (0-1.0); Monocytes % (A) 5 %; Neutrophils # (A) 8.3 k/uL (1.3-7.7); Neutrophils % (A) 84 %; Platelet Count 264 k/uL (150-450); RBC 3.62 m/uL (3.80-5.40); RDW 12.3 % (11.5-15.5); WBC 9.9 k/uL (3.8-10.6)
[2020-08-10] MEDS ORDERED: MELATONIN 5 MG TABLET PO PRN (10:44)
[2020-08-10] MEDS: PANTOPRAZOLE 40 MG/10 ML VIAL IVP SCH (12:07)
[2020-08-10] MEDS: atenoloL 25 MG TAB PO SCH (12:17)
[2020-08-10] MEDS: oxyCODONE ER 10 MG TAB.ER.12H PO PRN (12:17)
--- NOTE | 2020-08-10 14:31 | P.CONS ---
History of Present Illness - Reason for Consult Consult date: 08/10/20 Medical management gastroesophageal reflux disease, hypertension, Requesting physician: Lance Eason - Chief Complaint Osteoarthritis left shoulder, rotator cuff tear, status post total shoulder - History of Present Illness This is a 70-year-old female with past medical history fibromyalgia, gastroesophageal reflux disease, hyperlipidemia, hypertension,Sjogren's, anxiiet y, and multiple other medical issues, status post elective left reverse total shoulder arthroplasty secondary to osteoarthrosis with massive rotator cuff tear. Tolerated procedure well. Positive pain, attempted Dilaudid, [place] with OxyCodone recently added to pain med regimen. Hypertensive, attributed to pain. Passing flatus. Denies chest pain, palpitations or shortness of breath. Review of Systems ROS Statement: Those systems with pertinent positive or pertinent negative responses have been documented in the HPI. ROS Other: All systems not noted in ROS Statement are negative. Past Medical History Past Medical History: Fibromyalgia, GERD/Reflux, Hyperlipidemia, Hypertension Additional Past Medical History / Comment(s): SJOGREN'S. Spinal stenosis with spondylosis and scoliosis. IBS. Hx ulcer. Had "kidney distress" from medications (ARTHRITEC) History of Any Multi-Drug Resistant Organisms: None Reported Past Surgical History: Appendectomy, Back Surgery, Breast Surgery, Section, Cholecystectomy, Hernia Repair, Hysterectomy, Joint Replacement, Orthopedic Surgery Additional Past Surgical History / Comment(s): BILATERAL CATARACTS. RIGHT knee replacement. Lumbar laminectomy. Decompression fusion with ortiz. Abdominoplasty(SORES UNDER APRON). RIGHT breast biopsy x 2. RT HAMMER TOE SX Past Anesthesia/Blood Transfusion Reactions: Previous Problems w/ Anesthesia, Motion Sickness, Postoperative Nausea & Vomiting (PONV) Additional Past Anesthesia/Blood Transfusion Reaction / Comm: Has problems with the hiccups after surgery. Severe allergy to Dura Prep. Past Psychological History: Anxiety Smoking Status: Never smoker Past Alcohol Use History: Rare Past Drug Use History: None Reported - Past Family History Mother Family Medical History: Cancer Additional Family Medical History / Comment(s): Breast Cancer. Sister(s) Family Medical History: Cancer Additional Family Medical History / Comment(s): Breast Father Family Medical History: Coronary Artery Disease (CAD) Brother(s) Family Medical History: Cancer Son(s) Family Medical History: No Reported History Medications and Allergies Home Medications Medication Instructions Recorded Confirmed Type Atenolol [Tenormin] 25 mg PO QAM 02/25/14 08/06/20 History Rosuvastatin Calcium [Crestor] 40 mg PO HS 05/17/15 08/06/20 History traMADol HCL [Ultram] 50 mg PO BID 05/19/16 08/06/20 History Multivitamins, Thera [Multivitamin 1 tab PO DAILY 07/13/17 08/06/20 History (formulary)] Omeprazole [PriLOSEC] 20 mg PO QAM 07/13/17 08/06/20 History Magnesium 200 mg PO DAILY 06/24/18 08/06/20 History Melatonin 5 mg PO HS PRN 06/24/18 08/06/20 History Turmeric Root Extract [Turmeric] 500 mg PO DAILY 06/28/18 08/06/20 History Oxybutynin Chloride [Ditropan XL] 10 mg PO QAM 01/31/19 08/06/20 History Sertraline HCl [Zoloft] 50 mg PO QAM 01/31/19 08/06/20 History HYDROcodone/APAP 7.5-325MG [[place] 1 tab PO Q6HR PRN 3 Days #10 tab 02/04/19 08/06/20 Rx 7.5-325] Hydroxychloroquine Sulfate 200 mg PO HS 08/06/20 08/06/20 History [Plaquenil] Pilocarpine HCl 5 mg PO HS 08/06/20 08/09/20 History Allergies Allergy/AdvReac Type Severity Reaction Status Date / Time adhesive Allergy Rash/Hives Verified 08/09/20 13:03 latex Allergy Rash/Hives Verified 08/09/20 13:03 pentazocine lactate Allergy Confusion Verified 08/09/20 13:03 [From Talwin] potassium chloride Allergy Rash/Hives Verified 08/09/20 13:03 aspirin AdvReac NEGATIVELY Verified 08/09/20 13:03 AFFECTS KIDNEY FUNCTION ibuprofen [From Motrin] AdvReac NEGATIVELY Verified 08/09/20 13:03 AFFECTS KIDNEY FUNCTION DURA PREP Allergy Rash/Hives Uncoded 08/09/20 13:03 Physical Exam Vitals: Vital Signs Temp Pulse Resp BP BP BP Pulse Ox 08/10/20 07:40 97.5 F L 85 14 200/82 08/10/20 03:05 98.0 F 75 18 149/78 91 L 08/10/20 03:01 17 08/09/20 23:24 17 08/09/20 19:47 17 08/09/20 19:09 97.8 F 82 18 161/83 90 L 08/09/20 17:52 97.4 F L 83 20 169/83 90 L 08/09/20 17:30 74 16 137/71 96 08/09/20 17:15 72 16 135/65 96 08/09/20 16:45 75 16 142/69 98 08/09/20 16:30 77 16 144/73 97 08/09/20 16:15 81 16 168/79 142/75 96 08/09/20 16:02 98.3 F 92 16 146/71 96 08/09/20 13:54 68 16 168/79 98 08/09/20 12:42 97.5 F L 68 16 190/87 96 Intake and Output 08/09/20 08/10/20 08/10/20 22:59 06:59 14:59 Intake Total 900 Output Total 200 30 Balance 900 -200 -30 Intake: IV 900 Output: Drainage 200 30 Left Shoulder 200 30 Other: Voiding Method Toilet Toilet # Voids 2 2 Weight 78 kg PHYSICAL EXAM: VITAL SIGNS: As above GENERAL: Sitting up in bed, no acute distress HEENT: Conjunctivae normal. eyes normal. Oral mucosa moist NECK: No JVD. No thyroid enlargement. No LNs. Left sling present. CARDIOVASCULAR: S1, S2 muffled. No murmur RESPIRATION: Breath sounds diminished in the bases. No rhonchi or crackles. No bronchial breathing. ABDOMEN: Soft, nondistended, nontender. No guarding. no masses palpable. Bowel sounds heard. LEGS: No edema. no swelling PSYCHIATRY: Alert and oriented -3, mood and affect normal. NERVOUS SYSTEM: Cranial N 2-12 grossly normal. Moves all 4 limbs. No focal deficits. Skin: Warm and dry,no rash. Results CBC & Chem 7: 08/10/20 07:10 Labs: Abnormal Lab Results - Last 24 Hours (Table) 08/10/20 Range/Units 07:10 RBC 3.62 L (3.80-5.40) m/uL Hgb 11.2 L (11.4-16.0) gm/dL Hct 33.7 L (34.0-46.0) % Neutrophils # 8.3 H (1.3-7.7) k/uL Assessment and Plan Assessment: status post elective left reverse total shoulder arthroplasty secondary to osteoarthrosis with massive rotator cuff tear. Gastroesophageal reflux disease History of PONV Hiatal hernia Hypertension Anxiety Plan: Continue on current medication regime ,monitoring and symptomatic treatment. Pain management as per primary. His chest received OxyContin with recheck vital signs pending. Close monitoring of blood pressure. PT/OT. All meds have been reviewed and resumed accordingly. Aggressive pulmonary toile ting, incentive spirometer ordered. Thank you Dr. Eason for the consult. The impression and plan of care has been dictated as directed. : I performed a history and examination of this patient, discussed the same with the dictator. I agree with the dictator's note ,documented as a scribe. Any additional findings or plans will be noted.
[2020-08-10] MEDS: HYDROcodone/APAP 10-325MG 1 EACH TAB PO PRN ×2 (14:44→20:03)
--- NOTE | 2020-08-10 18:59 | P.PN ---
Subjective Progress Note Date: 08/10/20 Principal diagnosis: Left TSA Patient is seen at bedside this morning. She is postop day #1 from left reverse total shoulder arthroplasty. She has pain at the surgical site as expected but denies any new complaints. She denies numbness, tingling or calf pain. Review of systems is negative for fever, chills, chest pain, shortness of breath or other Objective - Vital Signs Vital signs: Vital Signs Temp 98.0 F 08/10/20 12:00 Pulse 72 08/10/20 12:00 Resp 14 08/10/20 12:00 BP 173/77 08/10/20 12:00 Pulse Ox 91 L 08/10/20 03:05 Intake & Output 08/09/20 08/10/20 08/10/20 18:59 06:59 18:59 Intake Total 1950 Output Total 100 200 30 Balance 1851 -200 -30 Weight 78 kg Intake: IV 1950 Output: Drainage 200 30 Left Shoulder 200 30 Estimated Blood Loss 100 Other: Voiding Method Toilet # Voids 2 3 - Exam Inspection reveals a benign surgical wound. Hemovac in place. There is no active bleeding or drainage. Neurovascular status is intact throughout the upper extremity with motor and sensation fully intact. Calf is soft and nontender. 2+ dorsalis pedis pulse and less than 2 second cap refill is present. - Constitutional General appearance: Present: no acute distress - Labs CBC & Chem 7: 08/10/20 07:10 Labs: Abnormal Lab Results - Last 24 Hours (Table) 08/10/20 Range/Units 07:10 RBC 3.62 L (3.80-5.40) m/uL Hgb 11.2 L (11.4-16.0) gm/dL Hct 33.7 L (34.0-46.0) % Neutrophils # 8.3 H (1.3-7.7) k/uL Assessment and Plan (1) Shoulder arthritis Narrative/Plan: She will continue with routine postop orthopedic protocol including pain management, wound care, DVT prophylaxis and medical management. Pain meds have been adjusted. Expect that she will transfer to home tomorrow Current Visit: No Status: Acute Priority: Medium Code(s): M12.9 - ARTHROPATHY, UNSPECIFIED SNOMED Code(s): 398994805 Time with Patient: Less than 30
[2020-08-10] MEDS: PILOCARPINE 5 MG TAB PO SCH (20:02)
[2020-08-10] MEDS: ATORVASTATIN 80 MG TAB PO SCH (20:03)
[2020-08-10] MEDS: HYDROXYCHLOROQUINE SULFATE 200 MG TAB PO SCH (20:03)
[2020-08-11] MEDS: LACTATED RINGERS 1,000 ML IV SCH ×3 (02:44→18:22)
[2020-08-11] MEDS: HYDROmorphone 0.5 MG/0.5 ML SYRINGE IVP PRN (02:44)
[2020-08-11] MEDS: HYDROcodone/APAP 10-325MG 1 EACH TAB PO PRN ×2 (05:55→11:06)
[2020-08-11] MEDS: hydrOXYzine pamoate 25 MG CAP PO PRN ×2 (05:56→11:06)
[2020-08-11] MEDS: oxyCODONE ER 10 MG TAB.ER.12H PO PRN ×2 (08:12→19:15)
[2020-08-11] MEDS: SERTRALINE 50 MG TAB PO SCH (08:13)
[2020-08-11] MEDS: MAGNESIUM OXIDE 400 MG TAB PO SCH (08:13)
[2020-08-11] MEDS: OXYBUTYNIN 10 MG TAB.ER.24 PO SCH (08:13)
[2020-08-11] MEDS: atenoloL 25 MG TAB PO SCH (08:13)
[2020-08-11] MEDS: PANTOPRAZOLE 40 MG/10 ML VIAL IVP SCH (08:14)
--- NOTE | 2020-08-11 10:41 | P.PN ---
Subjective Progress Note Date: 08/11/20 Principal diagnosis: Left TSA Patient is seen at bedside this morning. She is postop day #2 from left reverse total shoulder arthroplasty. She has pain at the surgical site as expected which is a little better controlled. She denies any new complaints. She denies numbness, tingling or calf pain. Review of systems is negative for fever, chills, chest pain, shortness of breath or other Objective - Vital Signs Vital signs: Vital Signs Temp 100.0 F H 08/11/20 07:00 Pulse 83 08/11/20 07:00 Resp 18 08/11/20 02:22 BP 137/81 08/11/20 07:00 Pulse Ox 90 L 08/11/20 07:00 Intake & Output 08/10/20 08/11/20 08/11/20 18:59 06:59 18:59 Output Total 30 Balance -30 Output: Drainage 30 Left Shoulder 30 Other: Voiding Method Toilet # Voids 3 3 - Exam Inspection reveals a benign surgical wound. There is no active bleeding or drainage. Neurovascular status is intact throughout the upper extremity with motor and sensation fully intact. Calf is soft and nontender. 2+ dorsalis pedis pulse and less than 2 second cap refill is present. - Labs CBC & Chem 7: 08/10/20 07:10 Assessment and Plan (1) Shoulder arthritis Narrative/Plan: She will continue with routine postop orthopedic protocol including pain management, wound care, DVT prophylaxis and medical management. Pain meds have been adjusted and will see how well it is controlled today. Expect that she will transfer to home tomorrow Current Visit: No Status: Acute Priority: Medium Code(s): M12.9 - ARTHROPATHY, UNSPECIFIED SNOMED Code(s): 105983074 Time with Patient: Less than 30
--- NOTE | 2020-08-11 12:42 | P.PN ---
Subjective This is a 70-year-old female with past medical history fibromyalgia, gastroesophageal reflux disease, hyperlipidemia, hypertension,Sjogren's, anxii ety, and multiple other medical issues, status post elective left reverse total shoulder arthroplasty secondary to osteoarthrosis with massive rotator cuff tear. Tolerated procedure well. Positive pain, attempted Dilaudid, [place] with OxyCodone recently added to pain med regimen. Hypertensive, attributed to pain. Passing flatus. Denies chest pain, palpitations or shortness of breath. 08/11/2020: patient is still in quite a bit of pain thsi am. Vitals show TMAX 100.0f @ 0700 and pulse ox 90-91% SIO2 on RA. repeat. She is using IC hourly. Repeat temp now normal patient is Asymptomatic. No chest pain, pressure sob, nausea or vomiting. Objective - Vital Signs Vital signs: Vital Signs Temp 100.0 F H 08/11/20 07:00 Pulse 83 08/11/20 07:00 Resp 18 08/11/20 02:22 BP 137/81 08/11/20 07:00 Pulse Ox 90 L 08/11/20 07:00 Intake & Output 08/10/20 08/11/20 08/11/20 18:59 06:59 18:59 Output Total 30 Balance -30 Output: Drainage 30 Left Shoulder 30 Other: Voiding Method Toilet # Voids 3 3 - Exam GENERAL: Sitting up in bed, no acute distress other than pain in her left shoulder postop NECK: No JVD. No thyroid enlargement. No LNs. Left sling present. CARDIOVASCULAR: S1, S2 muffled. No murmur RESPIRATION: Breath sounds diminished in the bases. No rhonchi or crackles. No bronchial breathing. ABDOMEN: Soft, nondistended, nontender. No guarding. no masses palpable. Bowel sounds heard. LEGS: No edema. no swelling PSYCHIATRY: Alert and oriented -3, mood and affect normal. NERVOUS SYSTEM: Cranial N 2-12 grossly normal. Moves all 4 limbs. No focal deficits. Skin: Warm and dry,no rash. - Labs CBC & Chem 7: 08/10/20 07:10 Assessment and Plan (1) Shoulder arthritis Current Visit: No Status: Acute Priority: Medium Code(s): M12.9 - ARTHRO ADRIANA, UNSPECIFIED SNOMED Code(s): 815608735 (2) Status post left shoulder hemiarthroplasty Current Visit: Yes Status: Acute Code(s): Z96.612 - PRESENCE OF LEFT ARTIFICIAL SHOULDER JOINT SNOMED Code(s): 513866199 (3) Essential (primary) hypertension Current Visit: Yes Status: Acute Code(s): I10 - ESSENTIAL (PRIMARY) HYPERTENSION SNOMED Code(s): 95695233 (4) Mixed hyperlipidemia Current Visit: Yes Status: Acute Code(s): E78.2 - MIXED HYPERLIPIDEMIA SNOMED Code(s): 817220403 (5) OAB (overactive bladder) Current Visit: Yes Status: Acute Code(s): N32.81 - OVERACTIVE BLADDER SNOMED Code(s): 065142796 (6) GERD (gastroesophageal reflux disease) Current Visit: Yes Status: Acute Code(s): K21.9 - GASTRO-ESOPHAGEAL REFLUX DISEASE WITHOUT ESOPHAGITIS SNOMED Code(s): 698288956 (7) IBS (irritable bowel syndrome) Current Visit: Yes Status: Acute Code(s): K58.9 - IRRITABLE BOWEL SYNDROME WITHOUT DIARRHEA SNOMED Code(s): 31712150 (8) Sjogrens syndrome Current Visit: Yes Status: Acute Code(s): M35.00 - SICCA SYNDROME, UNSPECIFIED SNOMED Code(s): 24059972 (9) H/O excision of lamina of lumbar vertebra for decompression of spinal cord Current Visit: Yes Status: Acute Code(s): Z98.890 - OTHER SPECIFIED POSTPROC EDURAL STATES SNOMED Code(s): 067007785 (10) Lumbosacral spondylosis Current Visit: No Status: Chronic Code(s): M47.817 - SPONDYLS W/O MYELOPATHY OR RADICULOPATHY, LUMBOSACR REGION SNOMED Code(s): 430989289 Plan: pain contol per oRTHO PT/OT to continue dtaff to monitor temp and O2 saturation labs in am she will be reevaluated in 24 hours
[2020-08-11] MEDS: diphenhydrAMINE 25 MG CAP PO PRN (15:13)
[2020-08-11] MEDS: ATORVASTATIN 80 MG TAB PO SCH (19:15)
[2020-08-11] MEDS: HYDROXYCHLOROQUINE SULFATE 200 MG TAB PO SCH (19:15)
[2020-08-11] MEDS: PILOCARPINE 5 MG TAB PO SCH (19:15)
[2020-08-11 20:33] VITALS: RESP 20
[2020-08-12] MEDS: HYDROcodone/APAP 10-325MG 1 EACH TAB PO PRN ×2 (00:01→12:28)
[2020-08-12] MEDS: hydrOXYzine pamoate 25 MG CAP PO PRN (00:02)
[2020-08-12] MEDS: diphenhydrAMINE 25 MG CAP PO PRN ×2 (02:34→15:16)
[2020-08-12 06:35] LABS: Basophils % (A) 1 %; Eosinophils # (A) 0.4 k/uL (0-0.7); Eosinophils % (A) 7 %; HCT 33.8 % (34.0-46.0); HGB 11.2 gm/dL (11.4-16.0); Lymphocytes # (A) 1.5 k/uL (1.0-4.8); Lymphocytes % (A) 24 %; MCH 30.8 pg (25.0-35.0); MCHC 33.2 g/dL (31.0-37.0); MCV 92.6 fL (80.0-100.0); Mean Platelet Volume 6.7; Monocytes # (A) 0.4 k/uL (0-1.0); Monocytes % (A) 7 %; Neutrophils # (A) 3.7 k/uL (1.3-7.7); Neutrophils % (A) 60 %; Platelet Count 238 k/uL (150-450); RBC 3.65 m/uL (3.80-5.40); RDW 12.5 % (11.5-15.5); WBC 6.2 k/uL (3.8-10.6)
[2020-08-12 08:23] VITALS: BP 150/76; PULSE 72; TEMP 98.5
[2020-08-12] MEDS: oxyCODONE ER 10 MG TAB.ER.12H PO PRN (08:54)
[2020-08-12] MEDS: SERTRALINE 50 MG TAB PO SCH (08:55)
[2020-08-12] MEDS: atenoloL 25 MG TAB PO SCH (08:55)
[2020-08-12] MEDS: OXYBUTYNIN 10 MG TAB.ER.24 PO SCH (08:55)
[2020-08-12] MEDS: MAGNESIUM OXIDE 400 MG TAB PO SCH (08:55)
[2020-08-12] MEDS: PANTOPRAZOLE 40 MG/10 ML VIAL IVP SCH (09:24)
[2020-08-12 09:59] LABS: African American GFR (CKD) 74.6 (60.0-200.0); Anion Gap 5.5 mmol/L (4.00-12.00); BUN/Creat Ratio 14.44 Ratio (12.00-20.00); Calcium 9.3 mg/dL (8.7-10.3); Carbon Dioxide 32.5 mmol/L (21.6-31.8); Magnesium 1.5 mg/dL (1.5-2.4); Non-African American GFR(CKD) 64.3 (60.0-200.0); Potassium 4.2 mmol/L (3.5-5.5)
--- NOTE | 2020-08-12 11:15 | P.DS ---
Providers Date of admission: 08/09/20 12:09 Expected date of discharge: 08/12/20 Attending physician: Lance Eason Consults: 08/09/20 13:55 Consult Physician Routine Consulting Provider: Carlos Cary Consult Reason/Comments: post op medical management Do you want consulting provider notified?: Yes Primary care physician: Carlos Cary - Discharge Diagnosis(es) (1) Shoulder arthritis Patient was admitted to the OR on 08/08/2020 to undergo a left reverse total shoulder arthroplasty. She had failed conservative measures as an outpatient and desired to proceed with elective surgery after given informed consent. She underwent the above procedure which she tolerated well without complication. Postoperative hospital course has remained without complication. On day of discharge she is afebrile, vital signs stable, labs within acceptable ranges, tolerating by mouth meds and diet, voiding without difficulty, positive flatus, denies abdominal pain or calf pain, pain is controlled on oral pain medication and has no new complaints. Wound is benign, neurovascular status is intact, calves are soft and nontender, abdomen soft and nontender. Review of systems is negative for numbness, tingling, fever, chills, chest pain, shortness of breath, nausea, vomiting, dizziness, headaches, slurred speech or other. Current Visit: No Status: Acute Priority: Medium Procedures: Left Reverse total shoulder Patient Condition at Discharge: Good Plan - Discharge Summary Discharge Rx Participant: Yes New Discharge Prescriptions: New Docusate [Colace] 100 mg PO BID #60 capsule HYDROcodone/APAP 10-325MG [[place] 10-325] 1 tab PO Q4HR PRN #42 tab PRN Reason: Pain oxyCODONE ER [OxyCONTIN] 10 mg PO Q12HR 5 Days #10 tab No Action Atenolol [Tenormin] 25 mg PO QAM Rosuvastatin Calcium [Crestor] 40 mg PO HS traMADol HCL [Ultram] 50 mg PO BID Multivitamins, Thera [Multivitamin (formulary)] 1 tab PO DAILY Omeprazole [PriLOSEC] 20 mg PO QAM Melatonin 5 mg PO HS PRN PRN Reason: Insomnia Magnesium 200 mg PO DAILY Turmeric Root Extract [Turmeric] 500 mg PO DAILY Oxybutynin Chloride [Ditropan XL] 10 mg PO QAM Sertraline HCl [Zoloft] 50 mg PO QAM HYDROcodone/APAP 7.5-325MG [[place] 7.5-325] 1 tab PO Q6HR PRN 3 Days #10 tab PRN Reason: Pain Hydroxychloroquine Sulfate [Plaquenil] 200 mg PO HS Pilocarpine HCl 5 mg PO HS Discharge Medication List Atenolol [Tenormin] 25 mg PO QAM 02/25/14 [History] Rosuvastatin Calcium [Crestor] 40 mg PO HS 05/17/15 [History] traMADol HCL [Ultram] 50 mg PO BID 05/19/16 [History] Multivitamins, Thera [Multivitamin (formulary)] 1 tab PO DAILY 07/13/17 [History] Omeprazole [PriLOSEC] 20 mg PO QAM 07/13/17 [History] Magnesium 200 mg PO DAILY 06/24/18 [History] Melatonin 5 mg PO HS PRN 06/24/18 [History] Turmeric Root Extract [Turmeric] 500 mg PO DAILY 06/28/18 [History] Oxybutynin Chloride [Ditropan XL] 10 mg PO QAM 01/31/19 [History] Sertraline HCl [Zoloft] 50 mg PO QAM 01/31/19 [History] HYDROcodone/APAP 7.5-325MG [[place] 7.5-325] 1 tab PO Q6HR PRN 3 Days #10 tab 02/04/19 [Rx] Hydroxychloroquine Sulfate [Plaquenil] 200 mg PO HS 08/06/20 [History] Pilocarpine HCl 5 mg PO HS 08/06/20 [History] Docusate [Colace] 100 mg PO BID #60 capsule 08/12/20 [Rx] HYDROcodone/APAP 10-325MG [[place] 10-325] 1 tab PO Q4HR PRN #42 tab 08/12/20 [Rx] oxyCODONE ER [OxyCONTIN] 10 mg PO Q12HR 5 Days #10 tab 08/12/20 [Rx] Follow up Appointment(s)/Referral(s): Lance Eason MD [STAFF PHYSICIAN] - 10 Days Activity/Diet/Wound Care/Special Instructions: Keep wound clean and dry Take meds as directed Follow-up with Dr. Eason in office Maintain sling, no weight bearing left upper extremity May shower Thursday if no bleeding Discharge Disposition: HOME WITH HOME HEALTH SERVICES
--- NOTE | 2020-08-12 12:33 | P.PN ---
Subjective This is a 70-year-old female with past medical history fibromyalgia, gastroesophageal reflux disease, hyperlipidemia, hypertension,Sjogren's, anxii ety, and multiple other medical issues, status post elective left reverse total shoulder arthroplasty secondary to osteoarthrosis with massive rotator cuff tear. Tolerated procedure well. Positive pain, attempted Dilaudid, [place] with OxyCodone recently added to pain med regimen. Hypertensive, attributed to pain. Passing flatus. Denies chest pain, palpitations or shortness of breath. 08/11/2020: patient is still in quite a bit of pain thsi am. Vitals show TMAX 100.0f @ 0700 and pulse ox 90-91% SIO2 on RA. repeat. She is using IC hourly. Repeat temp now normal patient is Asymptomatic. No chest pain, pressure sob, nausea or vomiting. ] 08/12/2020: Patient feels much better this morning. She has remained afebrile. Her pain is much better controlled. She is tolerating a diet. She is requesting discharge home Objective - Vital Signs Vital signs: Vital Signs Temp 98.5 F 08/12/20 07:00 Pulse 72 08/12/20 07:00 Resp 20 08/12/20 01:00 BP 150/76 08/12/20 07:00 Pulse Ox 90 L 08/12/20 07:00 Intake & Output 08/11/20 08/12/20 08/12/20 18:59 06:59 18:59 Intake Total 73 Balance 73 Intake: Intake, IV Titration 73 Amount Lactated Ringers 1,000 ml 73 @ 20 mls/hr IV .Q24H [facility] Rx#:[id number] Other: Voiding Method Toilet # Voids 2 2 - Exam GENERAL: Sitting up in bed, no acute distress other than pain in her left shoulder postop NECK: No JVD. No thyroid enlargement. No LNs. Left sling present. CARDIOVASCULAR: S1, S2 muffled. No murmur RESPIRATION: Breath sounds diminished in the bases. No rhonchi or crackles. No bronchial breathing. - Labs CBC & Chem 7: 08/12/20 06:15 08/12/20 06:15 Labs: Abnormal Lab Results - Last 24 Hours (Table) 08/12/20 08/12/20 Range/Units 06:15 06:15 RBC 3.65 L (3.80-5.40) m/uL Hgb 11.2 L (11.4-16.0) gm/dL Hct 33.8 L (34.0-46.0) % Carbon Dioxide 32.5 H (21.6-31.8) mmol/L Assessment and Plan (1) Shoulder arthritis Current Visit: No Status: Acute Priority: Medium Code(s): M12.9 - ARTHROPATHY, UNSPECIFIED SNOMED Code(s): 364130371 (2) Status post left shoulder hemiarthroplasty Current Visit: Yes Status: Acute Code(s): Z96.612 - PRESENCE OF LEFT ARTIFICIAL SHOULDER JOINT SNOMED Code(s): 562794548 (3) Essential (primary) hypertension Current Visit: Yes Status: Acute Code(s): I10 - ESSENTIAL (PRIMARY) HYPERTENSION SNOMED Code(s): 13259626 (4) Mixed hyperlipidemia Current Visit: Yes Status: Acute Code(s): E78.2 - MIXED HYPERLIPIDEMIA SNOMED Code(s): 565001885 (5) OAB (overactive bladder) Current Visit: Yes Status: Acute Code(s): N32.81 - OVERACTIVE BLADDER SNOMED Code(s): 850440521 (6) GERD (gastroesophageal reflux disease) Current Visit: Yes Status: Acute Code(s): K21.9 - GASTRO-ESOPHAGEAL REFLUX DISEASE WITHOUT ESOPHAGITIS SNOMED Code(s): 692147838 (7) IBS (irritable bowel syndrome) Current Visit: Yes Status: Acute Code(s): K58.9 - IRRITABLE BOWEL SYNDROME WITHOUT DIARRHEA SNOMED Code(s): 71959702 (8) Sjogrens syndrome Current Visit: Yes Status: Acute Code(s): M35.00 - SICCA SYNDROME, UNSPECIFIED SNOMED Code(s): 33968842 (9) H/O excision of lamina of lumbar vertebra for decompression of spinal cord Current Visit: Yes Status: Acute Code(s): Z98.890 - OTHER SPECIFIED POSTPROCEDURAL STATES SNOMED Code(s): 635504461 (10) Lumbosacral spondylosis Current Visit: No Status: Chronic Code(s): M47.817 - SPONDYLS W/O MYELOPATHY OR RADICULOPATHY, LUMBOSACR REGION SNOMED Code(s): 533740471 Plan: She is medically cleared for discharge. Repeat labs this a.m. were improved. She'll follow-up in our office in the next several weeks.
== END 2020-08-12 15:37 | disposition home or self-care (01) | DRG 483 ==
LOC: 2ORMAIN 12:09 → 4SSUR 17:27
PROVIDERS: ADMIT Orthopaedic Surgery Sports Medicine; ATTEND Orthopaedic Surgery Sports Medicine
PROC: 0RRK00Z Replacement of Left Shoulder Joint with Reverse Ball and Socket Synthetic Substitute, Open Approach (ICD-10-PCS; principal; 2020-08-09 14:00)
DX: M19.012 Primary osteoarthritis, left shoulder (principal); E78.2 Mixed hyperlipidemia; M75.122 Complete rotator cuff tear or rupture of left shoulder, not specified as traumatic; M35.00 Sjogren syndrome, unspecified; F32.9 Major depressive disorder, single episode, unspecified; M47.817 Spondylosis without myelopathy or radiculopathy, lumbosacral region; M79.7 Fibromyalgia; M41.9 Scoliosis, unspecified; M48.00 Spinal stenosis, site unspecified; I10 Essential (primary) hypertension; K21.9 Gastro-esophageal reflux disease without esophagitis; K44.9 Diaphragmatic hernia without obstruction or gangrene; N32.81 Overactive bladder; K58.9 Irritable bowel syndrome, unspecified; F41.9 Anxiety disorder, unspecified; H91.90 Unspecified hearing loss, unspecified ear; Z79.891 Long term (current) use of opiate analgesic; Z79.899 Other long term (current) drug therapy; Z96.651 Presence of right artificial knee joint; Z90.710 Acquired absence of both cervix and uterus; Z87.42 Personal history of other diseases of the female genital tract; Z87.39 Personal history of other diseases of the musculoskeletal system and connective tissue; Z98.891 History of uterine scar from previous surgery; Z90.49 Acquired absence of other specified parts of digestive tract; Z87.19 Personal history of other diseases of the digestive system; Z87.11 Personal history of peptic ulcer disease; Z98.42 Cataract extraction status, left eye; Z98.41 Cataract extraction status, right eye; Z98.890 Other specified postprocedural states; Z97.3 Presence of spectacles and contact lenses; Z98.1 Arthrodesis status; Z87.448 Personal history of other diseases of urinary system; Z91.048 Other nonmedicinal substance allergy status; Z88.5 Allergy status to narcotic agent; Z88.8 Allergy status to other drugs, medicaments and biological substances; Z88.6 Allergy status to analgesic agent; Z91.040 Latex allergy status; Z82.49 Family history of ischemic heart disease and other diseases of the circulatory system; Z80.3 Family history of malignant neoplasm of breast
CPT/HCPCS: 64415; 76942; 80048; 83735; 85025; 88300

== ENCOUNTER → 2020-09-17 | Outpatient (CLI) | payer MEDICARE ==
[2020-09-17 16:31] LABS: Basophils % (A) 1 %; Eosinophils # (A) 0.3 k/uL (0-0.7); Eosinophils % (A) 7 %; HCT 34.9 % (34.0-46.0); HGB 11.5 gm/dL (11.4-16.0); Lymphocytes # (A) 1.4 k/uL (1.0-4.8); Lymphocytes % (A) 31 %; MCH 30.6 pg (25.0-35.0); MCV 92.5 fL (80.0-100.0); Mean Platelet Volume 6.9; Monocytes # (A) 0.2 k/uL (0-1.0); Monocytes % (A) 5 %; Neutrophils # (A) 2.5 k/uL (1.3-7.7); Neutrophils % (A) 54 %; Platelet Count 261 k/uL (150-450); RBC 3.77 m/uL (3.80-5.40); RDW 12.7 % (11.5-15.5); WBC 4.6 k/uL (3.8-10.6)
[2020-09-18 00:47] LABS: African American GFR (CKD) 74.6 (60.0-200.0); Albumin 4.5 g/dL (3.80-4.90); Albumin/Globulin Ratio 2.5 (1.60-3.17); Anion Gap 7.7 mmol/L (4.00-12.00); BUN/Creat Ratio 26.67 Ratio (12.00-20.00); Calcium 9.8 mg/dL (8.7-10.3); Carbon Dioxide 29.3 mmol/L (21.6-31.8); Globulin 1.8 g/dL (1.6-3.3); Non-African American GFR(CKD) 64.3 (60.0-200.0); Potassium 4.5 mmol/L (3.5-5.5); Total Bilirubin 0.4 mg/dL (0.2-1.2); Total Protein 6.3 g/dL (6.2-8.2)
== END | disposition home or self-care (01) ==
LOC: LABWHC1 14:55
PROVIDERS: ATTEND Family Medicine
DX: D64.9 Anemia, unspecified (principal)
CPT/HCPCS: 36415; 80053; 85025

== ENCOUNTER → 2021-01-09 | Outpatient (CLI) | payer MEDICARE ==
--- NOTE | 2021-01-09 12:46 | BD ---
EXAMINATION TYPE: Axial Bone Density DATE OF EXAM: 01/09/2021 COMPARISON: NONE CLINICAL HISTORY: Height: 60.5 Weight: 162.7 FRAX RISK QUESTIONS: Alcohol (3 or more units per day): no Family History (Parent hip fracture): no Glucocorticoids (More than 3mos): no (Ex: prednisone, prednisolone, methylprednisolone, dexamethasone, and hydrocortisone). History of Fracture in Adulthood: no Secondary Osteoporosis: 1. Type 1 Diabetes: no 2. Hyperthyroidism: no 3. Menopause before 45: no 4. Malnutrition: no 5. Chronic liver disease: no Rheumatoid Arthritis: no Current Tobacco Use: no RISK FACTORS HISTORY OF: Surgery to Spine/Hip(right/left)/Wrist (right/left): lumbar spine -ortiz When: 10 years ago Family History of Osteoporosis: yes Active: yes Diet low in dairy products/other sources of calcium: no Postmenopausal woman: age 51 Lost more than 2 inches in height since high school: no MEDICATIONS: omeprazole, oxybutynin, tramadol, atenolol, cholesterol meds, plaquil Additional History: EXAM MEASUREMENTS: Bone mineral densitometry was performed using the [employer] System. Bone mineral density about the R hip (g/cm2): 0.934 Bone mineral density about the L hip (g/cm2): 0.981 T Score values are as follows: -----R Neck: -0.7 -----L Neck: -0.4 -----R Total: -0.9 -----L Total: -0.5 Bone mineral density has: decreased -7.5 % since study of: 01.04.2018 Bone mineral density about the L Wrist (g/cm2): 0.580 T Score values are as follows: -----Dist. R+U: -0.1 -----Prox. R+U: -1.8 -----Radius total: -1.6 Bone mineral density has: baseline IMPRESSION: Osteopenia (T Score between -2.5 and -1). There is slightly increased risk of fracture and the patient may be considered for treatment. Re-Screen 2-5 years. NOTE: T-SCORE=SD OF THE YOUNG ADULT MEAN.
== END | disposition home or self-care (01) ==
LOC: RADBDWWP 07:55
PROVIDERS: ATTEND Family Medicine
DX: M85.80 Other specified disorders of bone density and structure, unspecified site (principal); Z78.0 Asymptomatic menopausal state
CPT/HCPCS: 77080

== ENCOUNTER → 2021-01-09 | Outpatient (CLI) | payer MEDICARE ==
--- NOTE | 2021-01-09 12:49 | MM ---
Reason for exam: screening (asymptomatic). Last mammogram was performed 2 years ago. History: Patient is postmenopausal and is of Ashkenazi Islam descent. Family history of breast cancer in sister and breast cancer in mother at age 76. 2 benign excisional biopsies of the right breast. Took hormonal contraceptives for 5 years. Took estrogen for 12 years 8 months beginning at age 49. Physical Findings: A clinical breast exam by your physician is recommended on an annual basis and results should be correlated with mammographic findings. MG 3D Screening Mammo W/Cad Bilateral CC and MLO view(s) were taken. Prior study comparison: January 12, 2019, bilateral MG 3d screening mammo w/cad. August 31, 2017, left breast MG 3d diag mammo w/cad LT. The breast tissue is heterogeneously dense. This may lower the sensitivity of mammography. Finding #1: Stable architectural distortion in the inner quadrant, anterior middle position of the right breast. Finding #2: There are typically benign round calcifications in both breasts. Developing 17mm asymmetry subareolar left breast on CC and MLO . ASSESSMENT: Incomplete: need additional imaging evaluation, BI-RAD 0 RECOMMENDATION: Ultrasound of the left breast. [facility] will attempt to contact patient to return for ultrasound.
== END | disposition home or self-care (01) ==
LOC: RADMAMWWP 07:57
PROVIDERS: ATTEND Obstetrics & Gynecology
DX: Z12.31 Encounter for screening mammogram for malignant neoplasm of breast (principal)
CPT/HCPCS: 77063; 77067

== ENCOUNTER → 2021-01-18 | Outpatient (CLI) | payer MEDICARE ==
--- NOTE | 2021-01-18 14:45 | USB ---
Reason for exam: additional evaluation requested from abnormal screening. History: Patient is postmenopausal and is of Ashkenazi Yazidism descent. Family history of breast cancer in sister and breast cancer in mother at age 76. 2 benign excisional biopsies of the right breast. Took hormonal contraceptives for 5 years. Took estrogen for 12 years 8 months beginning at age 49. Physical Findings: Nurse did not find any significant physical abnormalities on exam. US Breast Workup Limited LT Left limited breast ultrasound including focal area of concern, retroareolar and axilla demonstrates no cystic or solid lesion seen. Periareolar left breast scanned. These results were verbally communicated with the patient and result sheet given to the patient on 01/18/21. ASSESSMENT: Probably benign, BI-RAD 3 RECOMMENDATION: Follow-up diagnostic mammogram of the left breast in 6 months.
== END | disposition home or self-care (01) ==
LOC: RADUSWWP 12:57
PROVIDERS: ATTEND Obstetrics & Gynecology
DX: Z78.0 Asymptomatic menopausal state (principal); Z80.3 Family history of malignant neoplasm of breast

== ENCOUNTER → 2021-09-05 | Outpatient (CLI) | payer MEDICARE ==
--- NOTE | 2021-09-05 13:59 | MM ---
Reason for exam: follow-up at short interval from prior study. Last mammogram was performed 8 months ago. History: Patient is postmenopausal and is of Ashkenazi Rastafari descent. Family history of breast cancer in sister and breast cancer in mother at age 76. 2 benign excisional biopsies of the right breast. Took hormonal contraceptives for 5 years. Took estrogen for 12 years 8 months beginning at age 49. Physical Findings: Nurse did not find any significant physical abnormalities on exam. MG 3D Diag Mammo W/Cad LT CC and MLO view(s) were taken of the left breast. Prior study comparison: January 09, 2021, bilateral MG 3d screening mammo w/cad. January 12, 2019, bilateral MG 3d screening mammo w/cad. The breast tissue is heterogeneously dense. This may lower the sensitivity of mammography. There is no discrete abnormality including area of concern. These results were verbally communicated with the patient and result sheet given to the patient on 09/05/21. ASSESSMENT: Benign, BI-RAD 2 RECOMMENDATION: Return to routine screening mammogram schedule for both breasts. Back on schedule for December 2021.
== END | disposition home or self-care (01) ==
LOC: RADMAMWWP 13:01
PROVIDERS: ATTEND Family Medicine
DX: R92.8 Other abnormal and inconclusive findings on diagnostic imaging of breast (principal); Z78.0 Asymptomatic menopausal state; Z80.3 Family history of malignant neoplasm of breast
CPT/HCPCS: 77065; G0279; 77061

== ENCOUNTER → 2022-02-21 | Outpatient (CLI) | payer MEDICARE ==
--- NOTE | 2022-02-21 10:04 | MM ---
Reason for Exam: Additional evaluation requested from abnormal screening. Last screening mammogram was performed less than 1 month ago. Patient History: Menarche at age 10. First Full-Term at age 18. Left ovary removed at age 50. Right ovary removed at age 50. Hysterectomy at age 24. Postmenopausal. Ashkenazi Mormonism. Estrogen, starting at age 49 for 12 years, 8 months. Patient used Hormonal Contraceptives for 5 years. Benign Excisional Biopsy on the right side. Benign Excisional Biopsy on the right side. Mother had breast cancer, age 76. Sister had breast cancer, age 57. Risk Values: Lesli 5 year model risk: 13.4%. NCI Lifetime model risk: 29.4%. Film Views: 3D and 2D Synthesized Bilateral spot compression CC views were taken. 3D and 2D Synthesized Right spot compression MLO views were taken. 3D and 2D Synthesized Bilateral LM views were taken. Prior Study Comparison: 09/05/2021 Left Diagnostic Mammogram, [facility]. 02/12/2022 Bilateral MG 3D screening mammo w/cad, [facility]. Tissue Density: The breast tissue is heterogeneously dense. This may lower the sensitivity of mammography. Findings: Analyzed By CAD. Persistent distortion consistent with prior excision changes without distinct new lesion on additional views acquired. Area of concern asymmetric density medial left breast does not go completely on additional spot 3-D view, not clearly seen on true lateral view on background dense tissue. Overall Assessment: Incomplete: need additional imaging evaluation, BI-RAD 0 Management: Diagnostic Breast Ultrasound of the left breast. Targeted ultrasound now. Electronically signed and approved by: Danny Lambert M.D.
--- NOTE | 2022-02-25 07:33 | USB ---
Patient History: Menarche at age 10. First Full-Term at age 18. Left ovary removed at age 50. Right ovary removed at age 50. Hysterectomy at age 24. Postmenopausal. Ashkenazi Restorationist. Estrogen, starting at age 49 for 12 years, 8 months. Patient used Hormonal Contraceptives for 5 years. Benign Excisional Biopsy on the right side. Benign Excisional Biopsy on the right side. Mother had breast cancer, age 76. Sister had breast cancer, age 57. Risk Values: Lesli 5 year model risk: 13.4%. NCI Lifetime model risk: 29.4%. Technique: Method: Targeted. Prior Study Comparison: 01/09/2021 Bilateral Screening Mammogram, [facility]. 09/05/2021 Left Diagnostic Mammogram, [facility]. 02/12/2022 Bilateral MG 3D screening mammo w/cad, [facility]. Findings: The upper inner quadrant of the left breast, the lower inner quadrant of the left breast and the retroareolar of the left breast were scanned. No solid or cystic masses are identified. Overall Assessment: Probably benign, BI-RAD 3 Management: Diagnostic Mammogram of the left breast in 6 months. A clinical breast exam by your physician is recommended on an annual basis and results should be correlated with mammographic findings. Electronically signed and approved by: Danny Lambert M.D.
== END | disposition home or self-care (01) ==
LOC: RADMAMWWP 09:29
PROVIDERS: ATTEND Advanced Practice Midwife
DX: R92.8 Other abnormal and inconclusive findings on diagnostic imaging of breast (principal); Z78.0 Asymptomatic menopausal state; Z80.3 Family history of malignant neoplasm of breast
CPT/HCPCS: 77066; 76642; G0279; 77062

== ENCOUNTER 2022-04-12 11:55 | Emergency (ER) | payer MEDICARE ==
[2022-04-12 12:01] VITALS: RESP 18; TEMP 98
[2022-04-12] MEDS ORDERED: HYDROmorphone 0.5 MG/0.5 ML SYRINGE IVP STA ×2 (12:15→13:48)
[2022-04-12] MEDS ORDERED: ONDANSETRON 4 MG/2 ML VIAL IVP STA (12:15)
[2022-04-12] MEDS ORDERED: SODIUM CHLORIDE 0.9% 1,000 ML IV STA (12:19)
--- NOTE | 2022-04-12 12:57 | ED ---
Abdominal Pain HPI - General Chief Complaint: Abdominal Pain Stated Complaint: Left ABD pain Time Seen by Provider: 04/12/22 12:02 Source: patient Mode of arrival: ambulatory Limitations: no limitations - History of Present Illness Initial Comments: Patient is a 72-year-old female with a past medical history significant for GERD, esophagitis, hiatal hernia, gastritis, and diverticulitis who presents to the emergency department with a chief complaint of left lower abdominal pain. Patient states this feels like a diverticulitis flareup. Patient states the pain started Thursday night and progressively worsened. States she started to experience diarrhea Thursday through Thursday with some blood streaks in it. States she has not had an episode of diarrhea or bowel movement since Thursday. Reports nausea without vomiting. Denies fever, chills, back pain, chest pain, lightheadedness, dizziness, shortness of breath, burning with urination, and b lood in the urine. Abdominal surgical history includes hiatal hernia surgery approximately 3 years ago. Denies history of obstruction. Patient states her last colonoscopy was 2 years ago which she states showed diverticulosis. She denies family history of colon cancer. - Related Data Home Medications Medication Instructions Recorded Confirmed Atenolol [Tenormin] 25 mg PO QAM 02/25/14 08/06/20 Rosuvastatin Calcium [Crestor] 40 mg PO HS 05/17/15 08/06/20 traMADol HCL [Ultram] 50 mg PO BID 05/19/16 08/06/20 Multivitamins, Thera [Multivitamin 1 tab PO DAILY 07/13/17 08/06/20 (formulary)] Omeprazole [PriLOSEC] 20 mg PO QAM 07/13/17 08/06/20 Magnesium 200 mg PO DAILY 06/24/18 08/06/20 Melatonin 5 mg PO HS PRN 06/24/18 08/06/20 Turmeric Root Extract [Turmeric] 500 mg PO DAILY 06/28/18 08/06/20 Oxybutynin Chloride [Ditropan XL] 10 mg PO QAM 01/31/19 08/06/20 Sertraline HCl [Zoloft] 50 mg PO QAM 01/31/19 08/06/20 Hydroxychloroquine Sulfate 200 mg PO HS 08/06/20 08/06/20 [Plaquenil] Pilocarpine HCl 5 mg PO HS 08/06/20 08/09/20 Previous Rx's Medication Instructions Recorded HYDROcodone/APAP 7.5-325MG [[place] 1 tab PO Q6HR PRN 3 Days #10 tab 02/04/19 7.5-325] Docusate [Colace] 100 mg PO BID #60 capsule 08/12/20 HYDROcodone/APAP 10-325MG [[place] 1 tab PO Q4HR PRN #42 tab 08/12/20 10-325] oxyCODONE ER [OxyCONTIN] 10 mg PO Q12HR 5 Days #10 tab 08/12/20 Dicyclomine [Bentyl] 20 mg PO TID PRN #21 tablet 04/12/22 Ondansetron Odt [Zofran Odt] 4 mg PO Q8HR PRN #12 tab 04/12/22 Allergies Allergy/AdvReac Type Severity Reaction Status Date / Time adhesive Allergy Rash/Hives Verified 04/12/22 12:01 latex Allergy Rash/Hives Verified 04/12/22 12:01 pentazocine lactate Allergy Confusion Verified 04/12/22 12:01 [From Talwin] potassium chloride Allergy Rash/Hives Verified 04/12/22 12:01 aspirin AdvReac NEGATIVELY Verified 04/12/22 12:01 AFFECTS KIDNEY FUNCTION ibuprofen [From Motrin] AdvReac NEGATIVELY Verified 04/12/22 12:01 AFFECTS KIDNEY FUNCTION DURA PREP Allergy Rash/Hives Uncoded 04/12/22 12:01 Review of Systems ROS Statement: Those systems with pertinent positive or pertinent negative responses have been documented in the HPI. ROS Other: All systems not noted in ROS Statement are negative. Past Medical History Past Medical History: Fibromyalgia, GERD/Reflux, Hyperlipidemia, Hypertension Additional Past Medical History / Comment(s): Spinal stenosis with spondylosis and scoliosis, IBS, hx ulcer, had "kidney distress" from medications, diverticulitis. History of Any Multi-Drug Resistant Organisms: None Reported Past Surgical History: Appendectomy, Back Surgery, Breast Surgery, Section, Cholecystectomy, Hernia Repair, Hysterectomy, Joint Replacement, Orthopedic Surgery Additional Past Surgical History / Comment(s): RIGHT knee replacement, lumbar laminectomy, decompression fusion with ortiz, abdominoplasty, rt breast biopsy x 2, RT HAMMER TOE SX Past Anesthesia/Blood Transfusion Reactions: Previous Problems w/ Anesthesia, Motion Sickness, Postoperative Nausea & Vomiting (PONV) Additional Past Anesthesia/Blood Transfusion Reaction / Comment(s): Has problems with the hiccups after surgery. Severe allergy to Dura Prep. Past Psychological History: Anxiety Smoking Status: Never smoker Past Alcohol Use History: Rare Past Drug Use History: None Reported - Past Family History Mother Family Medical History: Cancer Additional Family Medical History / Comment(s): Breast Cancer. Sister(s) Family Medical History: Cancer Additional Family Medical History / Comment(s): Breast Father Family Medical History: Coronary Artery Disease (CAD) Brother(s) Family Medical History: Cancer Son(s) Family Medical History: No Reported History General Exam Limitations: no limitations General appearance: alert, in no apparent distress Head exam: Present: atraumatic, normocephalic, normal inspection Respiratory exam: Present: normal lung sounds bilaterally. Absent: respiratory distress, wheezes, rales, rhonchi, stridor Cardiovascular Exam: Present: regular rate, normal rhythm, normal heart sounds. Absent: systolic murmur, diastolic murmur, rubs, gallop, clicks GI/Abdominal exam: Present: soft, tenderness (LLQ, and to a lesser extent, LUQ), normal bowel sounds. Absent: distended, guarding, rebound, rigid Neurological exam: Present: alert, oriented X3, CN II-XII intact Psychiatric exam: Present: normal affect, normal mood Skin exam: Present: warm, dry, intact, normal color. Absent: rash Course Vital Signs 04/12/22 04/12/22 11:56 14:40 Temperature 98 F Pulse Rate 62 62 Respiratory 18 18 Rate Blood Pressure 158/72 168/76 O2 Sat by Pulse 98 95 Oximetry Medical Decision Making - Medical Decision Making This is a 72-year-old female with extensive GI history who presents with left lower quadrant pain. Thorough history and examination were performed. Patient is well-appearing. She is afebrile. Vitals stable. The abdomen is soft. There is moderate tenderness in the left lower quadrant and to a lesser extent the left upper quadrant. With concern for diverticulitis I will obtain laboratory studies and CT of the abdomen and pelvis with contrast. During reevaluation shortly after CT scan patient states during scan she experienced an episode of sharp epigastric pain. Patient states the pain has improved however is still there. States the pain in her left lower quadrant is minimal. There is no tenderness with palpation of the epigastric region. States she has not experienced further nausea since medicated. She denies chest pain and sweating. She has history of hypertension and hyperlipidemia. Denies history of coronary artery disease, diabetes mellitus, and myocardial infarction. Family history of cardiac disease include her mother who has hypertension while living and her sister who has history of TIA. Patient denies past and present use of tobacco. CT of the abdomen and pelvis shows moderate stool without acute intra-abdominal process including diverticulitis. Laboratory studies are relatively unremarkable with no leukocytosis. EKG and x-ray were obtained to rule out acute coronary event. EKG shows sinus bradycardia without ST segment or T-wave abnormalities. Ventricular rate 59. Patient given another dose of Dilaudid which improved her epigastric pain. R esults discussed with patient. Cardiac etiology is unlikely. Patient will be discharged with magnesium citrate for constipation. I will also send her home with Kip. She is to follow up with her primary care provider on Thursday. Return parameters discussed. Patient verbalizes understanding and is agreeable to this plan. Dr. Acuña is my attending. - Lab Data Result diagrams: 04/12/22 12:39 04/12/22 12:39 Lab Results 04/12/22 04/12/22 04/12/22 Range/Units 12:39 12:39 12:39 WBC 4.9 (3.8-10.6) k/uL RBC 4.11 (3.80-5.40) m/uL Hgb 12.5 (11.4-16.0) gm/dL Hct 38.1 (34.0-46.0) % MCV 92.6 (80.0-100.0) fL MCH 30.4 (25.0-35.0) pg MCHC 32.9 (31.0-37.0) g/dL RDW 12.5 (11.5-15.5) % Plt Count 318 (150-450) k/uL MPV 6.9 Neutrophils % 62 % Lymphocytes % 24 % Monocytes % 5 % Eosinophils % 6 % Basophils % 1 % Neutrophils # 3.0 (1.3-7.7) k/uL Lymphocytes # 1.2 (1.0-4.8) k/uL Monocytes # 0.3 (0-1.0) k/uL Eosinophils # 0.3 (0-0.7) k/uL Basophils # 0.1 (0-0.2) k/uL Sodium 139 (137-145) mmol/L Potassium 4.1 (3.5-5.1) mmol/L Chloride 106 (98-107) mmol/L Carbon Dioxide 28 (22-30) mmol/L Anion Gap 5 mmol/L BUN 22 H (7-17) mg/dL Creatinine 0.70 (0.52-1.04) mg/dL Est GFR (CKD-EPI)AfAm >90 (>60 ml/min/1.73 sqM) Est GFR (CKD-EPI)NonAf 86 (>60 ml/min/1.73 sqM) Glucose 100 H (74-99) mg/dL Calcium 9.7 (8.4-10.2) mg/dL Total Bilirubin 0.6 (0.2-1.3) mg/dL AST 30 (14-36) U/L ALT 19 (4-34) U/L Alkaline Phosphatase 53 (38-126) U/L Total Protein 6.5 (6.3-8.2) g/dL Albumin 4.3 (3.5-5.0) g/dL Lipase 12 L (23-300) U/L Urine Color Yellow Urine Appearance Clear (Clear) Urine pH 5.5 (5.0-8.0) Ur Specific [place] 1.025 (1.001-1.035) Urine Protein Trace H (Negative) Urine Glucose (UA) Negative (Negative) Urine Ketones Negative (Negative) Urine Blood Negative (Negative) Urine Nitrite Negative (Negative) Urine Bilirubin Negative (Negative) Urine Urobilinogen <2.0 (<2.0) mg/dL Ur Leukocyte Esterase Trace H (Negative) Urine RBC 1 (0-5) /hpf Urine WBC 4 (0-5) /hpf Ur Squamous Epith Cells <1 (0-4) /hpf Urine Mucus Moderate H (None) /hpf Disposition Clinical Impression: Epigastric pain, Left lower quadrant abdominal pain, Nausea, Constipation Disposition: HOME SELF-CARE Condition: Good Instructions (If sedation given, give patient instructions): Constipation (ED), High Fiber Diet (ED), Abdominal Pain (ED) Additional Instructions: Drink half of the bottle of magnesium citrate. If you do not have a bowel movement in 4 hours, drink the other half. Increase fluid and fiber intake. Take Zofran as directed for nausea. Follow-up with primary care provider in one to 2 days. Return to the emergency department if you experience new, concerning, or worsening symptoms Prescriptions: Dicyclomine [Bentyl] 20 mg PO TID PRN #21 tablet PRN Reason: Pain Ondansetron Odt [Zofran Odt] 4 mg PO Q8HR PRN #12 tab PRN Reason: Nausea Is patient prescribed a controlled substance at d/c from ED?: No Referrals: Carlos Cary MD [Primary Care Provider] - 1-2 days Time of Disposition: 15:04
[2022-04-12 13:00] LABS: Basophils # (A) 0.1 k/uL (0-0.2); Basophils % (A) 1 %; Eosinophils # (A) 0.3 k/uL (0-0.7); Eosinophils % (A) 6 %; HCT 38.1 % (34.0-46.0); HGB 12.5 gm/dL (11.4-16.0); Lymphocytes # (A) 1.2 k/uL (1.0-4.8); Lymphocytes % (A) 24 %; MCH 30.4 pg (25.0-35.0); MCHC 32.9 g/dL (31.0-37.0); MCV 92.6 fL (80.0-100.0); Mean Platelet Volume 6.9; Monocytes # (A) 0.3 k/uL (0-1.0); Monocytes % (A) 5 %; Neutrophils % (A) 62 %; Platelet Count 318 k/uL (150-450); RBC 4.11 m/uL (3.80-5.40); RDW 12.5 % (11.5-15.5); WBC 4.9 k/uL (3.8-10.6)
[2022-04-12 13:11] LABS: Appearance,Urine Clear (Clear); Bilirubin,Urine Negative (Negative); Blood,Urine Negative (Negative); Color,Urine Yellow; Glucose,Urine (UA) Negative (Negative); Ketones,Urine Negative (Negative); Leukocyte Esterase,Urine Trace (Negative); Mucus,Urine Moderate /hpf; Nitrite,Urine Negative (Negative); PH, Urine 5.5 (5.0-8.0); Protein,Urine Trace (Negative); RBC,Urine 1 /hpf (0-5); Specific Gravity,Urine 1.025 (1.001-1.035); Squamous Epithelial Cell,Urine <1 /hpf (0-4); Urobilinogen,Urine <2.0 mg/dL (<2.0); WBC,Urine 4 /hpf (0-5)
[2022-04-12 13:22] LABS: ALT 19 U/L (4-34); AST 30 U/L (14-36); African American GFR (CKD) >90 (>60 ml/min/1.73 sqM); Albumin 4.3 g/dL (3.5-5.0); Alkaline Phosphatase 53 U/L (38-126); Anion Gap 5 mmol/L; Blood Urea Nitrogen 22 mg/dL (7-17); Calcium 9.7 mg/dL (8.4-10.2); Carbon Dioxide 28 mmol/L (22-30); Chloride 106 mmol/L (98-107); Glucose 100 mg/dL (74-99); Lipase 12 U/L (23-300); Non-African American GFR(CKD) 86 (>60 ml/min/1.73 sqM); Potassium 4.1 mmol/L (3.5-5.1); Sodium 139 mmol/L (137-145); Total Bilirubin 0.6 mg/dL (0.2-1.3); Total Protein 6.5 g/dL (6.3-8.2)
--- NOTE | 2022-04-12 13:55 | CT ---
EXAMINATION TYPE: CT abdomen pelvis w con DATE OF EXAM: 04/12/2022 COMPARISON: 121 HISTORY: Left lower quadrant pain, history of diverticulitis CT DLP: 961.4 mGycm CONTRAST: CT scan of the abdomen and pelvis is performed without Oral Contrast and with IV Contrast, patient in jected with 100 mL of Isovue 300. FINDINGS: LUNG BASES-: No visible nodule. No infiltrate. Small sliding-type hiatal hernia. Epigastric clips. LIVER/GB: No calcified gallstones. No space occupying hepatic lesion. Biliary tree is of normal ca liber. PANCREAS: No inflammation. No distinct mass. SPLEEN: No splenic enlargement. No lesion seen. ADRENALS: No nodule. No thickening. KIDNEYS/BLADDER: No hydronephrosis. No nephrolithiasis. No distinct renal mass. Urinary bladder g rossly unremarkable. BOWEL: Normal appendix. Normal bowel caliber. No inflammation. Moderate fecal stasis. Minimal diver ticulosis without diverticulitis. GENITAL ORGANS: Hysterectomy changes noted. LYMPH NODES: No greater than 1cm abdominal or pelvic lymph nodes are appreciated. AORTA: No significant abnormality. OSSEOUS STRUCTURES: Postoperative changes of lumbar laminectomy and fusion. Scoliotic curvature conve x to the right. Advanced degenerative changes. OTHER: No significant additional abnormality is seen. IMPRESSION: 1. No acute intra-abdominal process to account for the patient's symptoms.
--- NOTE | 2022-04-12 14:49 | XR ---
EXAMINATION TYPE: XR chest 2V DATE OF EXAM: 04/12/2022 COMPARISON: 07/13/2017 HISTORY: Epigastric pain TECHNIQUE: FINDINGS: There is no heart failure or confluent pneumonic infiltrate. There is left shoulder prosthe sis. Costophrenic angles are clear. Bony thorax is intact. IMPRESSION: No active cardiopulmonary disease. No change.
[2022-04-12] MEDS ORDERED: MAGNESIUM CITRATE 296 ML BOTTLE PO ONE (15:00)
[2022-04-12 16:28] VITALS: BP 134/78; PULSE 80
== END 2022-04-12 16:28 | disposition home or self-care (01) ==
LOC: EC 11:55
DX: K59.00 Constipation, unspecified (principal); E78.5 Hyperlipidemia, unspecified; I10 Essential (primary) hypertension; K21.9 Gastro-esophageal reflux disease without esophagitis; Z79.83 Long term (current) use of bisphosphonates; Z91.040 Latex allergy status; Z91.048 Other nonmedicinal substance allergy status; Z88.5 Allergy status to narcotic agent
CPT/HCPCS: 36415; 93005; 80053; 83690; 85025; 81001; 71046; 74177; 99284; 96374; 96375; 96361; J2405; J1170; Q9967

== ENCOUNTER 2022-05-05 11:47 | Day surgery (SDC) | payer MEDICARE ==
[2022-05-01 10:24] VITALS: BMI 27.4
[~2022-05-05 11:47] MED LIST changes: -ACETAMINOPHEN TAB 500 MG TAB PO ONE; -DEXAMETHASONE SOD PHOSPHATE 4 MG/ML 1 ML VIAL IV ONE; -GABAPENTIN 300 MG CAP PO ONE; -HYDROmorphone 0.5 MG/0.5 ML SYRINGE IVP PRN; +LACTATED RINGERS 1,000 ML IV SCH; +LIDOCAINE 1% (10MG/ML) FOR IV START INTRADERMA PRN; -MELOXICAM 7.5 MG TAB PO ONE; -ONDANSETRON 4 MG/2 ML VIAL IVP ONE; -TRANEXAMIC ACID 1,000 MG in SODIUM CHLORIDE 0.9% 100 ML IVPB ONE
[2022-05-05 11:58] VITALS: RESP 18; TEMP 97.2
[2022-05-05] MEDS ORDERED: LACTATED RINGERS 1,000 ML IV ONE (12:05)
[2022-05-05] MEDS ORDERED: PROPOFOL 10 MG/ML 20 ML VIAL IV ONE (13:46)
[2022-05-05] MEDS ORDERED: LIDOCAINE 2% INJ 20 MG/ML (2 ML VIAL) ONE (13:46)
--- NOTE | 2022-05-05 14:00 | P.GSHP ---
History of Present Illness H&P Date: 05/05/22 Chief Complaint: GERD, diverticulitis Cyst 71-year-old female with previous history of GERD and diverticula is. Patient resents today for EGD and colonoscopy. Past Medical History Past Medical History: Fibromyalgia, GERD/Reflux, Hyperlipidemia, Hypertension, Osteoarthritis (OA), Pneumonia Additional Past Medical History / Comment(s): Spinal stenosis with spondylosis and scoliosis, IBS, hx ulcer, had "kidney distress" from medications, diverticulitis. hx hiatal hernia, History of Any Multi-Drug Resistant Organisms: None Reported Past Surgical History: Appendectomy, Back Surgery, Breast Surgery, Section, Cholecystectomy, Hernia Repair, Hysterectomy, Joint Replacement, Orthopedic Surgery Additional Past Surgical History / Comment(s): RIGHT knee replacement, lumbar laminectomy, decompression fusion with ortiz, abdominoplasty, rt breast biopsy x 2, RT HAMMER TOE SX, left shoulder reverse replacement, pilar cataracts Past Anesthesia/Blood Transfusion Reactions: Previous Problems w/ Anesthesia, Motion Sickness, Postoperative Nausea & Vomiting (PONV) Additional Past Anesthesia/Blood Transfusion Reaction / Comment(s): Has problems with the hiccups after surgery. Severe allergy to Dura Prep. Smoking Status: Never smoker - Past Family History Mother Family Medical History: Cancer Additional Family Medical History / Comment(s): Breast Cancer. Sister(s) Family Medical History: Cancer Additional Family Medical History / Comment(s): Breast Father Family Medical History: Coronary Artery Disease (CAD) Brother(s) Family Medical History: Cancer Son(s) Family Medical History: No Reported History Medications and Allergies Home Medications Medication Instructions Recorded Confirmed Type Atenolol [Tenormin] 25 mg PO QAM 02/25/14 05/01/22 History Rosuvastatin Calcium [Crestor] 40 mg PO HS 05/17/15 05/01/22 History traMADol HCL [Ultram] 50 mg PO BID 05/19/16 05/01/22 History Multivitamins, Thera [Multivitamin 1 tab PO DAILY 07/13/17 05/01/22 History (formulary)] Omeprazole [PriLOSEC] 20 mg PO QAM 07/13/17 05/01/22 History Magnesium 200 mg PO HS 06/24/18 05/01/22 History Melatonin 5 mg PO HS PRN 06/24/18 05/01/22 History Turmeric Root Extract [Turmeric] 500 mg PO DAILY 06/28/18 05/01/22 History Oxybutynin Chloride [Ditropan XL] 10 mg PO QAM 01/31/19 05/01/22 History Sertraline HCl [Zoloft] 50 mg PO QAM 01/31/19 05/01/22 History Hydroxychloroquine Sulfate 200 mg PO HS 08/06/20 05/01/22 History [Plaquenil] Pilocarpine HCl 5 mg PO HS 08/06/20 05/01/22 History Docusate [Colace] 100 mg PO BID PRN 05/01/22 05/01/22 History Allergies Allergy/AdvReac Type Severity Reaction Status Date / Time adhesive Allergy Rash/Hives Verified 05/01/22 10:13 fluconazole Allergy Rash/Hives/face Verified 05/01/22 10:13 swelling/hair loss latex Allergy Rash/Hives Verified 05/01/22 10:13 pentazocine lactate Allergy Confusion Verified 05/01/22 10:13 [From Talwin] potassium chloride Allergy Rash/Hives Verified 05/01/22 10:13 aspirin AdvReac NEGATIVELY Verified 05/01/22 10:13 AFFECTS KIDNEY FUNCTION ibuprofen [From Motrin] AdvReac NEGATIVELY Verified 05/01/22 10:13 AFFECTS KIDNEY FUNCTION DURA PREP Allergy Rash/Hives Uncoded 05/01/22 10:13 Surgical - Exam Vital Signs Temp Pulse Resp BP Pulse Ox 97.2 F L 68 18 195/90 98 05/05/22 11:57 05/05/22 11:57 05/05/22 11:57 05/05/22 11:57 05/05/22 11:57 - General well developed, well nourished, no distress - Eyes PERRL - ENT normal pinna - Neck no masses - Respiratory normal expansion - Cardiovascular Rhythm: regular - Abdomen Abdomen: soft, non tender Assessment and Plan Assessment: GERD, diverticula is. We'll perform EGD and colonoscopy
--- NOTE | 2022-05-05 14:07 | P.OP ---
Date of Procedure: 05/05/22 Preoperative Diagnosis: GERD Diverticulitis Postoperative Diagnosis: Antral gastritis Procedure(s) Performed: EGD Colonoscopy Anesthesia: MAC Surgeon: Yousif Brock Pathology: other (Antrum) Condition: stable Disposition: PACU Description of Procedure: The patient's placed on the endoscopy table lateral position. She received IV sedation. The gastro-/oropharynx passed in the esophagus into the stomach. Scope was then placed through the pylorus. The first and second portion of the duodenum appeared normal. Scope summer back the antrum this was minimal inflamed. A biopsies performed. Scope was unretroflexed and the remainder the stomach appeared normal. The GE junction was at 440 cms. There is no significant hiatal hernia. The distal esophagus appeared normal. The proximal esophagus appeared normal. Scope withdrawn for patient. Next digital rectal exam was performed. This revealed no abdomen is. The flexible colonoscope was then placed patient anus passed throughout the colon. The scope couldn't pass beyond the left colon secondary to a very tortuous sigmoid colon. Scope was withdrawn. There was a few scattered diverticula. There were no tumors or polyps seen. Scope was brought back the rectum and this appeared normal. Scope withdrawn for patient. Patient was scheduled for a barium enema due tortuous colon.
[2022-05-05 14:48] VITALS: BP 179/89; PULSE 63
== END 2022-05-05 15:33 | disposition home or self-care (01) ==
LOC: ORWHC2ENDO 11:47
PROVIDERS: ATTEND Surgery
DX: K29.50 Unspecified chronic gastritis without bleeding (principal); K57.30 Diverticulosis of large intestine without perforation or abscess without bleeding; K63.89 Other specified diseases of intestine; K21.00 Gastro-esophageal reflux disease with esophagitis, without bleeding; M79.7 Fibromyalgia; K21.9 Gastro-esophageal reflux disease without esophagitis; E78.5 Hyperlipidemia, unspecified; I10 Essential (primary) hypertension; M19.90 Unspecified osteoarthritis, unspecified site; Z87.19 Personal history of other diseases of the digestive system; Z90.49 Acquired absence of other specified parts of digestive tract; Z80.3 Family history of malignant neoplasm of breast; Z82.49 Family history of ischemic heart disease and other diseases of the circulatory system; Z79.899 Other long term (current) drug therapy; Z79.1 Long term (current) use of non-steroidal anti-inflammatories (NSAID); Z88.3 Allergy status to other anti-infective agents; Z88.8 Allergy status to other drugs, medicaments and biological substances; Z88.6 Allergy status to analgesic agent; Z91.040 Latex allergy status; Z91.09 Other allergy status, other than to drugs and biological substances
CPT/HCPCS: 88305; 43239; 45330; J2704; J2001

== ENCOUNTER 2023-01-13 12:50 | Emergency (ER) | payer MEDICARE ==
[2023-01-13] MEDS ORDERED: SODIUM CHLORIDE 0.9% 1,000 ML IV ONE (13:29)
[2023-01-13] MEDS ORDERED: ACETAMINOPHEN TAB 325 MG TAB PO STA (13:29)
[2023-01-13] MEDS ORDERED: ALBUTEROL NEBULIZED 2.5 MG/3 ML INHALATION STA (13:29)
[2023-01-13 14:08] LABS: Basophils % (A) 0 %; Eosinophils # (A) 0.1 k/uL (0-0.7); Eosinophils % (A) 1 %; HGB 13.4 gm/dL (11.4-16.0); Lymphocytes # (A) 2.8 k/uL (1.0-4.8); Lymphocytes % (A) 21 %; MCH 29.7 pg (25.0-35.0); MCHC 33.5 g/dL (31.0-37.0); MCV 88.8 fL (80.0-100.0); Mean Platelet Volume 6.9; Monocytes # (A) 0.9 k/uL (0-1.0); Monocytes % (A) 7 %; Neutrophils # (A) 9.2 k/uL (1.3-7.7); Neutrophils % (A) 69 %; Platelet Count 339 k/uL (150-450); RDW 12.7 % (11.5-15.5); WBC 13.3 k/uL (3.8-10.6)
[2023-01-13 14:10] LABS: Albumin 3.9 g/dL (3.5-5.0); Calcium 9.2 mg/dL (8.4-10.2); Potassium 4.4 mmol/L (3.5-5.1); Total Bilirubin 0.6 mg/dL (0.2-1.3); Total Protein 6.4 g/dL (6.3-8.2)
--- NOTE | 2023-01-13 14:13 | XR ---
EXAMINATION TYPE: XR chest 2V DATE OF EXAM: 01/13/2023 COMPARISON: Chest x-ray April 12, 2022 HISTORY: Cough. TECHNIQUE: Frontal and lateral views of the chest are obtained. FINDINGS: There is no suspicious focal air space opacity, pleural effusion, or pneumothorax seen. T he cardiac silhouette size is stable and mildly enlarged. Scoliosis redemonstrated. Surgical change l eft shoulder partially imaged similar to prior. Cholecystectomy clips redemonstrated. IMPRESSION: Mild cardiomegaly without acute pulmonary process. No significant change from prior.
--- NOTE | 2023-01-13 14:16 | XR ---
EXAMINATION TYPE: XR cervical spine comp DATE OF EXAM: 01/13/2023 TECHNIQUE: Frontal, lateral, oblique and open mouth view of the cervical spine are obtained. HISTORY: neck pain COMPARISON: Prior cervical spine x-ray January 04, 2016 FINDINGS: The cervical spine is visualized from C1 thru the mid C7 level, lateral view is suboptimal due to slight obliquity. Persistent slight grade 1 anterolisthesis C4 on C5. Persistent mild to mode rate disc space narrowing C4-5 level. Persistent moderate disc space narrowing with mild to moderate anterior spurring at C5-C6 and C6-C7 levels.. The pre-vertebral soft tissue appears within normal li mits. The C1-C2 articulation is suboptimally evaluated on the 2 attempted open mouth views due to os seous overlap. The oblique images are within normal limits. Mild to moderate calcified plaque left c arotid bulb level redemonstrated. IMPRESSION: As above.
--- NOTE | 2023-01-13 15:20 | ED ---
General Adult HPI - General Chief complaint: Upper Respiratory Infection Stated complaint: congested Time Seen by Provider: 01/13/23 13:14 Source: patient, RN notes reviewed Mode of arrival: ambulatory Limitations: no limitations - History of Present Illness Initial comments: 72-year-old female with no significant past medical history presents to the emergency department with a chief complaint of cough and congestion 2 weeks. He was seen her PCP multiple times and was given her steroids and antibiotics she has had mild relief. She is complaining of accompanied symptoms of headache, congestion and a nonproductive cough. She denies any known sick contacts. She is up-to-date on his vaccinations. - Related Data Home Medications Medication Instructions Recorded Confirmed Atenolol [Tenormin] 25 mg PO DAILY 02/25/14 01/13/23 Rosuvastatin Calcium [Crestor] 40 mg PO HS 05/17/15 01/13/23 traMADol HCL [Ultram] 50 mg PO BID 05/19/16 01/13/23 Omeprazole [PriLOSEC] 20 mg PO DAILY 07/13/17 01/13/23 Oxybutynin Chloride [Ditropan XL] 10 mg PO DAILY 01/31/19 01/13/23 Hydroxychloroquine Sulfate 200 mg PO HS 08/06/20 01/13/23 [Plaquenil] Pilocarpine HCl 5 mg PO HS 08/06/20 01/13/23 ALPRAZolam [Xanax] 0.25 mg PO DAILY PRN 01/13/23 01/13/23 Amoxic-Pot Clav 875-125Mg 1 tab PO BID 01/13/23 01/13/23 [Augmentin 875-125] Codeine Phosphate/Guaifenesin 10 ml PO Q4H PRN 01/13/23 01/13/23 [Codeine Phosphate/Guaifenesin 10-100 mg/5 ml] Diclofenac Sodium Gel [Voltaren 1 applic TOPICAL BID 01/13/23 01/13/23 Gel] Sertraline [Zoloft] 100 mg PO DAILY 01/13/23 01/13/23 predniSONE See Taper PO DIRECTED 01/13/23 01/13/23 Previous Rx's Medication Instructions Recorded Benzonatate [Tessalon Perles] 100 mg PO TID PRN #30 capsule 01/13/23 Allergies Allergy/AdvReac Type Severity Reaction Status Date / Time adhesive Allergy Rash/Hives Verified 01/13/23 15:23 fluconazole Allergy Rash/Hives/face Verified 01/13/23 15:23 swelling/hair loss latex Allergy Rash/Hives Verified 01/13/23 15:23 pentazocine lactate Allergy Confusion Verified 01/13/23 15:23 [From Talwin] potassium chloride Allergy Rash/Hives Verified 01/13/23 15:23 aspirin AdvReac NEGATIVELY Verified 01/13/23 15:23 AFFECTS KIDNEY FUNCTION ibuprofen [From Motrin] AdvReac NEGATIVELY Verified 01/13/23 15:23 AFFECTS KIDNEY FUNCTION DURA PREP Allergy Rash/Hives Uncoded 01/13/23 13:10 Review of Systems ROS Statement: Those systems with pertinent positive or pertinent negative responses have been documented in the HPI. ROS Other: All systems not noted in ROS Statement are negative. Past Medical History Past Medical History: Fibromyalgia, GERD/Reflux, Hyperlipidemia, Hypertension, Osteoarthritis (OA), Pneumonia Additional Past Medical History / Comment(s): Spinal stenosis with spondylosis and scoliosis, IBS, hx ulcer, had "kidney distress" from medications, diverticulitis. hx hiatal hernia, History of Any Multi-Drug Resistant Organisms: None Reported Past Surgical History: Appendectomy, Back Surgery, Breast Surgery, Section, Cholecystectomy, Hernia Repair, Hysterectomy, Joint Replacement, Orthopedic Surgery Additional Past Surgical History / Comment(s): RIGHT knee replacement, lumbar laminectomy, decompression fusion with ortiz, abdominoplasty, rt breast biopsy x 2, RT HAMMER TOE SX, left shoulder reverse replacement, pilar cataracts Past Anesthesia/Blood Transfusion Reactions: Previous Problems w/ Anesthesia, Motion Sickness, Postoperative Nausea & Vomiting (PONV) Additional Past Anesthesia/Blood Transfusion Reaction / Comment(s): Has problems with the hiccups after surgery. Severe allergy to Dura Prep. Past Psychological History: Anxiety Smoking Status: Never smoker Past Alcohol Use History: Occasional Past Drug Use History: None Reported - Past Family History Mother Family Medical History: Cancer Additional Family Medical History / Comment(s): Breast Cancer. Sister(s) Family Medical History: Cancer Additional Family Medical History / Comment(s): Breast Father Family Medical History: Coronary Artery Disease (CAD) Brother(s) Family Medical History: Cancer Son(s) Family Medical History: No Reported History General Exam Limitations: no limitations General appearance: alert, in no apparent distress Head exam: Present: atraumatic, normocephalic, normal inspection Eye exam: Present: normal appearance, PERRL, EOMI. Absent: scleral icterus, conjunctival injection, periorbital swelling ENT exam: Present: normal exam, mucous membranes moist Neck exam: Present: normal inspection. Absent: tenderness, meningismus, lymphadenopathy Respiratory exam: Present: normal lung sounds bilaterally, wheezes. Absent: respiratory distress, rales, rhonchi, stridor Cardiovascular Exam: Present: regular rate, normal rhythm, normal heart sounds. Absent: systolic murmur, diastolic murmur, rubs, gallop, clicks GI/Abdominal exam: Present: soft, normal bowel sounds. Absent: distended, tenderness, guarding, rebound, rigid Extremities exam: Present: normal inspection, full ROM, normal capillary refill. Absent: tenderness, pedal edema, joint swelling, calf tenderness Back exam: Present: normal inspection Neurological exam: Present: alert, oriented X3, CN II-XII intact Psychiatric exam: Present: normal affect, normal mood Skin exam: Present: warm, dry, intact, normal color. Absent: rash Course Vital Signs 01/13/23 01/13/23 01/13/23 13:07 14:29 15:11 Temperature 97.5 F L 97.2 F L Pulse Rate 66 60 Respiratory 18 18 Rate Blood Pressure 173/105 194/81 179/86 O2 Sat by Pulse 98 98 Oximetry 01/13/23 01/13/23 01/13/23 15:50 16:00 18:45 Temperature 98 F Pulse Rate 63 65 63 Respiratory 16 Rate Blood Pressure 145/66 O2 Sat by Pulse 96 Oximetry - Reevaluation(s) Reevaluation #1: 01/13/23 15:[address] Cary who recommends getting a d-dimer on the patient. Reevaluation #2: 01/13/23 16:47 Notified as elevated dimer result. CT angiogram ordered. Reevaluation #3: 01/13/23 18:50 Patient reevaluated and updated on all results. She is agreeable with the discharge plan EKG Findings - EKG Comments: EKG Findings:: I interpreted the following: EKG performed at 1407 and 56 per minute sinus bradycardia. NV interval 152, QRS duration 93, QT/QTc 428/419 Medical Decision Making - Medical Decision Making Was pt. sent in by a medical professional or institution (PARISH Doyle, [employer]IOR [employer]GE[employer], urgent care, hospital, or half-way...) When possible be specific @ -[No] Did you speak to anyone other than the patient for history (EMS, parent, family, police, friend...)? What history was obtained from this source @ -[No] Did you review nursing and triage notes (agree or disagree)? Why? @ -[I reviewed and agree with nursing and triage notes] Were old charts reviewed (outside hosp., previous admission, EMS record, old EKG, old radiological studies, urgent care reports/EKG's, half-way records)? Report findings @ -[No old charts were reviewed] Differential Diagnosis (chest pain, altered mental status, abdominal pain women, abdominal pain men, vaginal bleeding, weakness, fever, dyspnea, syncope, headache, dizziness, GI bleed, back pain, seizure, CVA, palpatations, mental health, musculoskeletal)? @ -[not applicable] EKG interpreted by me (3pts min.). @ -[As above] X-rays interpreted by me (1pt min.). @ -Chest x-ray negative for any evidence of consolidation or CT interpreted by me (1pt min.). @ CT HARO negative for any evidence of pulmonary embolism U/S interpreted by me (1pt. min.). @ -[None done] What testing was considered but not performed or refused? (CT, X-rays, U/S, labs)? Why? @ -[None] What meds were considered but not given or refused? Why? @ -[None] Did you discuss the management of the patient with other professionals (professionals i.e. PARISH Doyle, [employer]IOR [employer]GEANT, lab, RT, psych nurse, licensed clinical social worker, picker/puller, teacher, building drafting officer, case filler)? Give summary @ -Case discussed with Dr. Cary who recommends ordering a d-dimer on the patient. Was smoking cessation discussed for >3mins.? @ -[No] Was critical care preformed (if so, how long)? @ -[No] Were there social determinants of health that impacted care today? How? (Homelessness, low income, unemployed, alcoholism, drug addiction, transportation, low edu. Level, literacy, decrease access to med. care, halfway, rehab)? @ -[No] Was there de-escalation of care discussed even if they declined (Discuss DNR or withdrawal of care, Hospice)? DNR status @ -[No] What co-morbidities impacted this encounter? (DM, HTN, Smoking, COPD, CAD, Cancer, CVA, ARF, Chemo, Hep., AIDS, mental health diagnosis, sleep apnea, morbid obesity)? @ -[None] Was patient admitted / discharged? Hospital course, mention meds given and r oute, prescriptions, significant lab abnormalities, going to OR and other pertinent info. @ -Discharged. This is a 72-year-old female who presents the emergency department with cough. Patient had a thorough history and physical exam performed physical exam is essentially unremarkable. Heart rate regular rate and rhythm, initial physical reveals wheezes in all lung bellamy, abdomen soft and nontender. There are no focal (deficits noted. Patient had lab work and imaging performed which was negative. Patient was given albuterol tx, tylenol and 1L fluids with symptomatic relief. I discussed the results in detail with the patient and patient's family who verbalized understanding and all questions were addressed. Patient was discharged in stable condition. She was encouraged to follow up with her PCP in 1-2 days. Return precautions were discussed at length. Case discussed with Dr. Duran [facility] who agrees with plan of care Undiagnosed new problem with uncertain prognosis? @ -[No] Drug Therapy requiring intensive monitoring for toxicity (Heparin, Nitro, Insulin, Cardizem)? @ -[No] Were any procedures done? @ -[No] Diagnosis/symptom? @ -cough Acute, or Chronic, or Acute on Chronic? @ -acute Uncomplicated (without systemic symptoms) or Complicated (systemic symptoms)? @ -uncomplicated Side effects of treatment? @ -[No] Exacerbation, Progression, or Severe Exacerbation? @ -[No] Poses a threat to life or bodily function? How? (Chest pain, USA, NC, pneumonia, PE, COPD, DKA, ARF, appy, cholecystitis, CVA, Diverticulitis, Homicidal, Suicidal, threat to staff... and all critical care pts) @ -low likelihood - Lab Data Result diagrams: 01/13/23 13:43 01/13/23 13:43 Lab Results 04/01/13/23 01/13/23 Range/Units 13:43 13:43 13:43 WBC 13.3 H (3.8-10.6) k/uL RBC 4.50 (3.80-5.40) m/uL Hgb 13.4 (11.4-16.0) gm/dL Hct 40.0 (34.0-46.0) % MCV 88.8 (80.0-100.0) fL MCH 29.7 (25.0-35.0) pg MCHC 33.5 (31.0-37.0) g/dL RDW 12.7 (11.5-15.5) % Plt Count 339 (150-450) k/uL MPV 6.9 Neutrophils % 69 % Lymphocytes % 21 % Monocytes % 7 % Eosinophils % 1 % Basophils % 0 % Neutrophils # 9.2 H (1.3-7.7) k/uL Lymphocytes # 2.8 (1.0-4.8) k/uL Monocytes # 0.9 (0-1.0) k/uL Eosinophils # 0.1 (0-0.7) k/uL Basophils # 0.0 (0-0.2) k/uL D-Dimer (<0.60) mg/L FEU Sodium 135 L (137-145) mmol/L Potassium 4.4 (3.5-5.1) mmol/L Chloride 99 (98-107) mmol/L Carbon Dioxide 30 (22-30) mmol/L Anion Gap 6 mmol/L BUN 23 H (7-17) mg/dL Creatinine 0.81 (0.52-1.04) mg/dL Est GFR (CKD-EPI)AfAm 84 (>60 ml/min/1.73 sqM) Est GFR (CKD-EPI)NonAf 73 (>60 ml/min/1.73 sqM) Glucose 81 (74-99) mg/dL Calcium 9.2 (8.4-10.2) mg/dL Total Bilirubin 0.6 (0.2-1.3) mg/dL AST 76 H (14-36) U/L ALT 99 H (4-34) U/L Alkaline Phosphatase 66 (38-126) U/L Total Protein 6.4 (6.3-8.2) g/dL Albumin 3.9 (3.5-5.0) g/dL Influenza Type A (PCR) Not Detected (Not Detectd) Influenza Type B (PCR) Not Detected (Not Detectd) RSV (PCR) Not Detected (Not Detectd) SARS-CoV-2 (PCR) Not Detected (Not Detectd) 01/13/23 Range/Units 15:36 WBC (3.8-10.6) k/uL RBC (3.80-5.40) m/uL Hgb (11.4-16.0) gm/dL Hct (34.0-46.0) % MCV (80.0-100.0) fL MCH (25.0-35.0) pg MCHC (31.0-37.0) g/dL RDW (11.5-15.5) % Plt Count (150-450) k/uL MPV Neutrophils % % Lymphocytes % % Monocytes % % Eosinophils % % Basophils % % Neutrophils # (1.3-7.7) k/uL Lymphocytes # (1.0-4.8) k/uL Monocytes # (0-1.0) k/uL Eosinophils # (0-0.7) k/uL Basophils # (0-0.2) k/uL D-Dimer 0.67 H (<0.60) mg/L FEU Sodium (137-145) mmol/L Potassium (3.5-5.1) mmol/L Chloride (98-107) mmol/L Carbon Dioxide (22-30) mmol/L Anion Gap mmol/L BUN (7-17) mg/dL Creatinine (0.52-1.04) mg/dL Est GFR (CKD-EPI)AfAm (>60 ml/min/1.73 sqM) Est GFR (CKD-EPI)NonAf (>60 ml/min/1.73 sqM) Glucose (74-99) mg/dL Calcium (8.4-10.2) mg/dL Total Bilirubin (0.2-1.3) mg/dL AST (14-36) U/L ALT (4-34) U/L Alkaline Phosphatase (38-126) U/L Total Protein (6.3-8.2) g/dL Albumin (3.5-5.0) g/dL Influenza Type A (PCR) (Not Detectd) Influenza Type B (PCR) (Not Detectd) RSV (PCR) (Not Detectd) SARS-CoV-2 (PCR) (Not Detectd) Disposition Clinical Impression: Cough Disposition: HOME SELF-CARE Condition: Stable Instructions (If sedation given, give patient instructions): Upper Respiratory Infection (ED) Additional Instructions: Return to the nearest emergency department if symptoms worsen or persist Prescriptions: Benzonatate [Tessalon Perles] 100 mg PO TID PRN #30 capsule PRN Reason: Cough Is patient prescribed a controlled substance at d/c from ED?: No Referrals: Carlos Cary MD [Primary Care Provider] - 1-2 days Time of Disposition: 18:28
--- NOTE | 2023-01-13 17:47 | CT ---
EXAMINATION TYPE: CT chest angio for PE CT DLP: 278.9 mGycm, Automated exposure control for dose reduction was used. DATE OF EXAM: 01/13/2023 5:32 PM COMPARISON: Chest radiograph 01/13/2023. CLINICAL INDICATION:Female, 72 years old with history of dimer +, SOB; Elevated D-dimer and SOB/Cough [id number]. TECHNIQUE/CONTRAST: CTA scan of the thorax is performed with IV Contrast, patient injected with 100cc mL of Isovue 370, p ulmonary embolism protocol. MIP images are created and reviewed. FINDINGS: Pulmonary Artery: There is no evidence for a filling defect within the pulmonary vasculature to sugge st acute pulmonary embolism. The pulmonary artery is of normal size. Reflux of contrast into the IVC and hepatic veins. Lungs/Pleura: No pleural effusion or pneumothorax. Bibasilar patchy groundglass and streaky opacities . Airway: Large airways are patent. Heart: Mildly enlarged in size. No pericardial effusion. Vasculature: No evidence of aortic aneurysm. Mediastinum: No gross evidence of adenopathy. Musculoskeletal: No acute osseous abnormalities. Right shoulder arthropathy. Left shoulder prosthesis . Mild degenerative changes of the visualized spine. Soft Tissues: Unremarkable. Lower neck: No significant findings. Upper Abdomen: Postcholecystectomy. Moderate size hiatal hernia with postsurgical changes of the GE j unction. IMPRESSION: 1. No evidence of pulmonary embolism. 2. Patchy bibasilar groundglass opacities and streaky reticular opacities which represent atelectasis versus infiltrates. 3. Moderate-sized hiatal hernia with post surgical changes of the GE junction.
[2023-01-13 18:47] VITALS: BP 145/66; PULSE 63; RESP 16; TEMP 98
== END 2023-01-13 18:47 | disposition home or self-care (01) ==
LOC: EC 12:50
DX: R05.9 Cough, unspecified (principal); K21.9 Gastro-esophageal reflux disease without esophagitis; E78.5 Hyperlipidemia, unspecified; I10 Essential (primary) hypertension; M19.90 Unspecified osteoarthritis, unspecified site; F41.9 Anxiety disorder, unspecified; Z91.09 Other allergy status, other than to drugs and biological substances; Z91.040 Latex allergy status; Z88.8 Allergy status to other drugs, medicaments and biological substances; Z88.5 Allergy status to narcotic agent; Z79.899 Other long term (current) drug therapy; Z20.822 Contact with and (suspected) exposure to COVID-19
CPT/HCPCS: 36415; 94640; 93005; 85379; 80053; 85025; 87636; 72050; 71046; 71275; 99284; 96360; 96361; Q9967

== ENCOUNTER → 2023-09-29 | Outpatient (CLI) | payer MEDICARE ==
--- NOTE | 2023-09-29 11:59 | US ---
EXAMINATION TYPE: US thyroid st tissue head/neck DATE OF EXAM: 09/29/2023 COMPARISON: NONE CLINICAL INDICATION: Female, 73 years old with history of R22.1 LOCALIZED SWELLING, MASS AND LUMP, NE CK; x 2 months; No relevant signs or symptoms TECHNIQUE: FINDINGS: Lymph Node noted at patients AOC = 0.5 x 0.7 x 1.2 cm. Follow-up CT with contrast be performed as cli nically indicated. Incidental - Left CCA Plaque IMPRESSION: Left neck lymph node at the area of concern, follow-up as clinically
== END | disposition home or self-care (01) ==
LOC: RADUSWWP 09:59
PROVIDERS: ATTEND Family Medicine
DX: R22.1 Localized swelling, mass and lump, neck (principal)
CPT/HCPCS: 76536

== ENCOUNTER → 2023-10-01 | Outpatient (CLI) | payer MEDICARE ==
--- NOTE | 2023-10-01 15:27 | US ---
EXAMINATION TYPE: US arterial LE single level DATE OF EXAM: 10/01/2023 1:31 PM CLINICAL INDICATION: Female, 73 years old with history of M79.662; [id number] pain in pilar legs; Claudicat ion after 20-30 feet of walking. History of: Smoker: no Hypertension: yes Diabetic: no Hyperlipidemia: yes TIA/CVA: no Previous Vascular Surgery: no CAD: no HI: no Vascular Ulcers: no Claudication: no Gangrene: no Doppler Waveforms: Right: Multiphasic Left: Multiphasic Pulse Volume Recording: NA Pressure Gradients: NA Right Brachial Pressure: 165 Left Brachial Pressure: 148 Ankle-Brachial Indices: Right: 1.07 Left: 1.00 Toe Brachial Indices: Right: 0.87 Left: 0.85 Biphasic waveforms are within the lower extremities bilaterally IMPRESSION: 1. Mild stenosis digital arteries bilateral feet.
== END | disposition home or self-care (01) ==
LOC: RADUSWWP 12:58
PROVIDERS: ATTEND Family Medicine
DX: I70.203 Unspecified atherosclerosis of native arteries of extremities, bilateral legs (principal); I10 Essential (primary) hypertension; E78.5 Hyperlipidemia, unspecified; M79.661 Pain in right lower leg; M79.662 Pain in left lower leg
CPT/HCPCS: 93922

== ENCOUNTER → 2024-01-12 | Outpatient (CLI) | payer MEDICARE ==
[2024-01-12 12:52] LABS: African American GFR (CKD) 57 (>60 ml/min/1.73 sqM); Blood Urea Nitrogen 31 mg/dL (7-17); Non-African American GFR(CKD) 49 (>60 ml/min/1.73 sqM)
--- NOTE | 2024-01-15 13:52 | CT ---
EXAMINATION TYPE: CT soft tissue neck w con DATE OF EXAM: 01/12/2024 COMPARISON: None HISTORY: lymphadenitis CT DLP: 418.4 mGycm CONTRAST: Patient injected with 80 mL of Isovue 300. TECHNIQUE: Axial images at 3 mm thick sections. Reconstructed images in the coronal plane and sagitt al plane are reviewed. FINDINGS: Limited CT sections are obtained the lung apices. The lung apices appear clear. CT neck: The torus tubarius and fossa of Rosenmuller are normal. Color Television Console Monitor spaces are normal. Para nasal sinuses and mastoid air cells are clear. Parotid glands appear normal and symmetrical. Submandibular glands, are normal. Parapharyngeal spac es are normal. No suspicious adenopathy is evident. No enlarged lymphadenopathy is identified. Level marked by BBs on the left no suspicious underlying masses are likely submandibular level. The hypopharynx appears within normal limits. Vocal cord level appear symmetrical. Thyroid as visualized is normal. Upper lung bellamy appear clear. There is a common origin of the lef t common carotid artery with the innominate. Some pleural calcifications at the medial upper lung. Osseous structures are normal. IMPRESSION: 1. No suspicious abnormality to account for swelling. There is marked by the BB appear unremarkable
== END | disposition home or self-care (01) ==
LOC: RADCTMAIN 12:15
PROVIDERS: ATTEND Family Medicine
DX: L04.0 Acute lymphadenitis of face, head and neck (principal)
CPT/HCPCS: 82565; 84520; 70491; 36415; Q9967

== ENCOUNTER → 2024-04-13 | Outpatient (CLI) | payer MEDICARE ==
[2024-04-13 11:01] LABS: Appearance,Urine Clear (Clear); Bilirubin,Urine Negative (Negative); Blood,Urine Negative (Negative); Color,Urine Yellow; Glucose,Urine (UA) Negative (Negative); Hyaline Casts,Urine 1 /lpf (0-2); Ketones,Urine Negative (Negative); Leukocyte Esterase,Urine Moderate (Negative); Mucus,Urine Many /hpf; Nitrite,Urine Negative (Negative); PH, Urine 5.5 (5.0-8.0); Protein,Urine Trace (Negative); RBC,Urine 2 /hpf (0-5); Specific Gravity,Urine 1.019 (1.001-1.035); Squamous Epithelial Cell,Urine <1 /hpf (0-4); Urobilinogen,Urine <2.0 mg/dL (<2.0); WBC,Urine 4 /hpf (0-5)
[2024-04-13 11:43] LABS: ALT 21 U/L (4-34); AST 30 U/L (14-36); African American GFR (CKD) 80 (>60 ml/min/1.73 sqM); Albumin 4.4 g/dL (3.5-5.0); Alkaline Phosphatase 59 U/L (38-126); Anion Gap 4 mmol/L; Blood Urea Nitrogen 21 mg/dL (7-17); Calcium 10.2 mg/dL (8.4-10.2); Carbon Dioxide 29 mmol/L (22-30); Chloride 106 mmol/L (98-107); Creatine Kinase 70 U/L (30-135); Globulin 2.2 g/dL; Glucose 108 mg/dL (74-99); Non-African American GFR(CKD) 70 (>60 ml/min/1.73 sqM); Potassium 4.4 mmol/L (3.5-5.1); Sodium 139 mmol/L (137-145); Total Bilirubin 0.7 mg/dL (0.2-1.3); Total Protein 6.6 g/dL (6.3-8.2)
--- NOTE | 2024-04-13 12:59 | CT ---
EXAMINATION TYPE: CT abdomen pelvis w con DATE OF EXAM: 04/13/2024 COMPARISON: 04/12/2022 HISTORY: LLQ abdominal pain. CT DLP: 914.3 mGycm CONTRAST: CT scan of the abdomen and pelvis is performed without Oral Contrast and with IV Contrast, patient in jected with 100ml mL of Isovue 300. FINDINGS: LUNG BASES-: No visible nodule. No infiltrate. Fixed hiatal hernia. LIVER/GB: The gallbladder is surgically absent. No space occupying hepatic lesion. Biliary tree is of normal caliber. PANCREAS: No inflammation. No distinct mass. SPLEEN: No splenic enlargement. No lesion seen. ADRENALS: No nodule. No thickening. KIDNEYS/BLADDER: No hydronephrosis. No nephrolithiasis. 1.2 cm cyst midpole right kidney. No solid renal mass is seen. Urinary bladder grossly unremarkable. BOWEL: Normal appendix. Normal bowel caliber. No inflammation. At least moderate fecal stasis. Daisy elate clinically for impending fecal impaction. GENITAL ORGANS: No gross abnormality. LYMPH NODES: No greater than 1cm abdominal or pelvic lymph nodes are appreciated. AORTA: No significant abnormality. OSSEOUS STRUCTURES: Severe degenerative changes lumbar spine with postoperative change noted. OTHER: No significant additional abnormality is seen. IMPRESSION: 1. At least moderate fecal stasis. Correlate clinically for impending fecal impaction. 2. Fixed hiatal hernia. 3. Small right renal cyst.
[2024-04-13 15:37] LABS: Basophils # (A) 0.04 X 10*3/uL (0.00-0.10); Basophils % (A) 0.6 %; Eosinophils # (A) 0.26 X 10*3/uL (0.04-0.35); Eosinophils % (A) 3.9 %; HCT 39.6 % (37.2-46.3); HGB 13.1 g/dL (12.0-15.0); Lymphocytes # (A) 1.03 X 10*3/uL (0.90-5.00); Lymphocytes % (A) 15.4 %; MCH 30.7 pg (27.0-32.0); MCHC 33.1 g/dL (32.0-37.0); MCV 92.7 FL (80.0-97.0); Mean Platelet Volume 9.3 FL (9.5-12.2); Monocytes # (A) 0.47 X 10*3/uL (0.20-1.00); NRBC Per 100 WBC 0 X 10*3/uL (0.00-0.01); Neutrophils # (A) 4.83 X 10*3/uL (1.80-7.70); Neutrophils % (A) 72.5 %; Platelet Count 320 X 10*3/uL (140-440); RBC 4.27 X 10*6/uL (4.10-5.20); WBC 6.67 X 10*3/uL (4.50-10.00)
== END | disposition home or self-care (01) ==
LOC: LABWHC1 10:09
PROVIDERS: ATTEND Family Medicine
DX: K44.9 Diaphragmatic hernia without obstruction or gangrene (principal); N28.1 Cyst of kidney, acquired; K52.9 Noninfective gastroenteritis and colitis, unspecified; R10.32 Left lower quadrant pain; Z87.19 Personal history of other diseases of the digestive system
CPT/HCPCS: 82552; 80053; 82550 ×2; 83605; 85025; 81001; 74177; 36415; Q9967

== ENCOUNTER → 2024-08-31 | Outpatient (CLI) | payer MEDICARE ==
--- NOTE | 2024-09-02 17:09 | MM ---
Reason for Exam: Screening (asymptomatic). Last mammogram was performed 1 year(s) and 3 month(s) ago. Patient History: Menarche at age 10. First Full-Term at age 18. Left ovary removed at age 50. Right ovary removed at age 50. Hysterectomy at age 24. Postmenopausal. [employer]. Estrogen, starting at age 49 for 12 years, 8 months. Patient used Hormonal Contraceptives for 5 years. Benign Excisional Biopsy on the right side. Benign Excisional Biopsy on the right side. Mother had breast cancer, age 76. Sister had breast cancer, age 57. Risk Values: Mary 5 year model risk: 13.4%. NCI Lifetime model risk: 26.4%. Prior Study Comparison: 02/12/2022 Bilateral MG 3D screening mammo w/cad, [facility]. 02/21/2022 Bilateral MG 3D work up w/cad DIANA, [facility]. 06/19/2023 Bilateral MG 3D screening mammo w/cad, [facility]. Tissue Density: The breasts are heterogeneously dense, which may obscure small masses. Findings: Analyzed By CAD. Redemonstrated complex breast tissue with multiple areas asymmetric density. These areas appear unchanged. Chronic excisional scar medial right breast. Benign secretory and oil cyst calcifications. There is no suspicious group of microcalcifications or new suspicious mass in either breast. Overall Assessment: Benign, BI-RAD 2 Management: Screening Mammogram of both breasts in 1 year. SEE NOTE BELOW IN REGARDS TO PATIENT'S INCREASED 5 YEAR MARY SCORE AND INCREASED LIFETIME RISK SCORE. Patient should continue monthly self-breast exams. A clinical breast exam by your physician is recommended on an annual basis. This exam should not preclude additional follow-up of suspicious palpable abnormalities. Note on Mary scores and lifetime risk: 1. A Mary score greater than 3% is considered moderate risk. If this is the case, consider specialist referral to assess eligibility for a risk reducing agent. 2. If overall lifetime risk for the development of breast cancer is 20% or higher, the patient may qualify for future screening with alternating mammogram and breast MRI. [facility], , 09/02/2024 5:06 PM. Electronically signed and approved by: Madina Alexander M.D. Radiologist
== END | disposition home or self-care (01) ==
LOC: RADMAMWWP 15:22
PROVIDERS: ATTEND Family Medicine
DX: Z12.31 Encounter for screening mammogram for malignant neoplasm of breast (principal); Z78.0 Asymptomatic menopausal state; Z80.3 Family history of malignant neoplasm of breast; Z90.722 Acquired absence of ovaries, bilateral; R92.333 Mammographic heterogeneous density, bilateral breasts
CPT/HCPCS: 77063; 77067

== ENCOUNTER → 2024-09-29 | Outpatient (CLI) | payer MEDICARE ==
--- NOTE | 2024-09-29 16:11 | XR ---
EXAMINATION TYPE: XR toes LT DATE OF EXAM: 09/29/2024 COMPARISON: NONE CLINICAL INDICATION: Female, 74 years old with pain, history of S90.212A LF GREAT TOE W DAMAGE TO LISA L; TECHNIQUE: 3 views coned-down left great toe FINDINGS: Overlying dressing obscures fine osseous detail. No acute fracture, subluxation, or disloca tion is clearly identified along for the excessive bony overlap particularly on the lateral views. IMPRESSION: Overlying dressing limits detailed evaluation. Lateral view also limited due to overlapping toes. No definite acute osseous abnormality is seen. [facility], , 09/29/2024 4:09 PM
== END | disposition home or self-care (01) ==
LOC: RADXRMAIN 15:14
PROVIDERS: ATTEND Family Medicine
DX: S90.212A Contusion of left great toe with damage to nail, initial encounter (principal)

== ENCOUNTER → 2025-03-06 | Outpatient (CLI) | payer MEDICARE ==
--- NOTE | 2025-03-06 12:02 | XR ---
EXAMINATION TYPE: XR chest 2V DATE OF EXAM: 03/06/2025 11:52 AM COMPARISON: 01/13/2023 CLINICAL INDICATION: Female, 75 years old with history of R07.81 PLEURODYNIA, TECHNIQUE: XR chest 2V view(s) obtained. FINDINGS: The heart size is normal. The pulmonary vasculature is normal. The lungs are clear. Left shoulder prosthesis present. IMPRESSION: 1. No acute pulmonary process. [facility], , 03/06/2025 12:00 PM
== END | disposition home or self-care (01) ==
LOC: RADXRMAIN 11:36
PROVIDERS: ATTEND Family Medicine
DX: R07.81 Pleurodynia (principal)
CPT/HCPCS: 71046

== ENCOUNTER → 2025-04-12 | Outpatient (CLI) | payer MEDICARE ==
--- NOTE | 2025-04-12 16:40 | CT ---
EXAMINATION TYPE: CT chest wo con DATE OF EXAM: 04/12/2025 4:11 PM COMPARISON: 04/13/2024 CLINICAL INDICATION: Female, 75 years old with history of R07.81 PLEURODYNIA; PHH, Continuing to have rt sided chest pain after fall on 03/03/25 TECHNIQUE: Multiple axial images were obtained through the chest. Sagittal and coronal reformats were created for review. MIP was performed on a separate workstation. Contrast used: mL of (None if empty) Oral contrast used: (None if empty) CT DLP: 374 mGycm, Automated exposure control for dose reduction was used. FINDINGS: LUNGS/ PLEURA: No focal consolidation, pneumothorax or pleural effusion. AIRWAY: Patent and unremarkable. HEART: Size within normal limits. Mild coronary artery calcifications present. MEDIASTINUM: No gross evidence of adenopathy. Moderate hiatal hernia. VASCULATURE: No aortic aneurysm. MUSCULOSKELETAL: Mild disc degeneration changes are present throughout the thoracolumbar spine second concepcion to osteophyte formation and facet joint arthropathy. Single fractures are seen to the right fourt h and fifth ribs with cortical buckling and callus formation. There is some sclerosis of left ribs 5 and 6 anteriorly. SOFT TISSUES/LYMPH NODES: Unremarkable. LOWER NECK: No significant findings. UPPER ABDOMEN: The gallbladder is surgically absent. IMPRESSION: 1. Acute/subacute fractures of right ribs 4 and 5 2. Mild buckling of left ribs 5 and 6 anteriorly suggestive of nondisplaced fractures correlate with pain. 3. No evidence for acute intrathoracic process. 4. Moderate hiatal hernia. Follow up recommendations for incidental pulmonary nodules, if there are any, are per [employer] or [employer]. https://radiopaedia.org/articles/hpdqdnqtsx-kfqzzpk-[email or web address]-[email or web address]-[email or web address]-[email or web address]?lang=us [email or web address], , 04/12/2025 4:37 PM
== END | disposition home or self-care (01) ==
LOC: RADCTMAIN 15:48
PROVIDERS: ATTEND Family Medicine
DX: S22.41XA Multiple fractures of ribs, right side, initial encounter for closed fracture (principal); K44.9 Diaphragmatic hernia without obstruction or gangrene; W19.XXXA Unspecified fall, initial encounter
CPT/HCPCS: 71250